=== PATIENT | male | born 1975 | race Two or more races ===

== ENCOUNTER 2020-11-30 02:27 | Emergency (ER) | payer MEDICAID, SELFPAY ==
--- NOTE | 2020-11-30 02:52 | XR_ITS ---
EXAMINATION: XR CHEST CLINICAL INFORMATION: Cough COMPARISON: 09/30/2017 TECHNIQUE: Frontal view of the chest was obtained. FINDINGS: Lung volumes are symmetric. No focal consolidation is seen. An approximately 1.4 cm nodular density overlying the right upper lung may represent the right upper lobe lesion identified on CT of 01/23/2016. No evidence of pneumothorax, pleural effusion, or pulmonary edema. The cardiomediastinal contour is unremarkable. No acute osseous findings are seen. XR/XR chest 1V IMPRESSION: Approximately 1.4 cm nodular density in the right upper lung, which may corresponding to the right upper lobe lung lesion identified on prior CT 01/23/2016. Correlation with short-term follow-up chest CT is recommended.
--- NOTE | 2020-11-30 02:52 | ECG_ITS ---
Test Reason : PALPATATIONS Blood Pressure : / mmHG Vent. Rate : 077 BPM Atrial Rate : 077 BPM P-R Int : 134 ms QRS Dur : 090 ms QT Int : 354 ms P-R-T Axes : 018 015 043 degrees QTc Int : 400 ms Normal sinus rhythm Normal ECG When compared with ECG of 30-NOV-2020 02:38, Sinus rhythm has replaced Atrial fibrillation Vent. rate has decreased BY 55 BPM Referred By: Larisa Knott Electronically Signed By:Carl Villanueva
[2020-11-30 02:58] VITALS: BP 107/73; PULSE 144; RESP 22; O2SAT 97; BMI 35.4
[2020-11-30 03:07] VITALS: BP 107/73; PULSE 141
[2020-11-30] MEDS: Metoprolol Tartrate 5 MG/5 ML VIAL IVPUSH (03:07)
[2020-11-30 03:20] LABS: MANUAL DIFF FLAG NO
--- NOTE | 2020-11-30 03:20 | ECG_ITS ---
Test Reason : PALP Blood Pressure : / mmHG Vent. Rate : 132 BPM Atrial Rate : 120 BPM P-R Int : 000 ms QRS Dur : 086 ms QT Int : 258 ms P-R-T Axes : 000 000 040 degrees QTc Int : 382 ms Atrial fibrillation with rapid ventricular response Abnormal ECG No previous ECGs available Referred By: Larisa Knott Electronically Signed By:Carl Villanueva
--- NOTE | 2020-11-30 03:20 | PC.NURSE ---
PT TO ROOM #5 WITH C/O PALPITATIONS WHICH STARTED THIS MORNING. PT ARRIVES ALERT, RESPIRATIONS EASY, N/L. SKIN W/D. PT DENIES CP AT THIS TIME. PT WAS HAVING PERIODS OF SOB AT TIMES TODAY. PT CHG INTO GOWN AND MD AT BEDSIDE WITH PT. IV PLACED TO RAC, LABS DRAWN TO LAB. NS UP AND RUNNING W/O, SITE INTACT. X-RAY IN ROOM FOR CXR. PT MEDICATED WITH METOPROLOL PER EMAR FOR RACING HEART. PT'S HR IS 74-78. PT REMAINS ON THE MONITOR. PT DENIES SOB AT THIS TIME. WILL CONTINUE TO MONITOR PT.
[2020-11-30 03:22] LABS: Basophils Absolute Auto 0.1 X10*3/uL (0.0-0.2); Basophils Percent Auto 0.5 % (0-2); Eosinophils Absolute Auto 0.5 X10*3/uL (0.0-0.4); Eosinophils Percent Auto 4.9 % (0-4); Hematocrit 42.9 % (42-52); Hemoglobin 15.1 g/dl (14.0-18.0); Imm Gran Abs Auto 0.03 X10*3/uL (0.00-0.03); Imm Gran Pct Auto 0.3 % (0.0-0.4); Lymphocytes Absolute Auto 3.1 X10*3/uL (1.2-4.9); Lymphocytes Percent Auto 31.6 % (20-40); Mean Corpuscular HGB Conc 35.2 g/dl (31.0-36.0); Mean Corpuscular Hemoglobin 31.1 pg (27.0-33.0); Mean Corpuscular Volume 88.3 fL (80-98); Mean Platelet Volume 8.8 fL (9.4-12.4); Monocytes Absolute Auto 1.2 X10*3/uL (0.1-1.2); Monocytes Percent Auto 11.9 % (2-11); Neutrophils Absolute Auto 4.9 X10*3/uL (2.0-8.3); Neutrophils Percent Auto 50.8 % (45-73); Platelet Count 320 X10*3/uL (160-400); Red Blood Count 4.86 X10*6/uL (4.60-5.80); Red Cell Distribution Width 12.3 % (11.0-16.0); White Blood Count 9.7 X10*3/uL (4.8-10.8)
--- NOTE | 2020-11-30 03:30 | ED.ARRPALP ---
HPI - Arrhythmia/Palpitations General Chief Complaint: General Medical Stated Complaint: FAST HEARTBEAT Time Seen by Provider: 11/30/20 02:52 Source: patient Mode of arrival: ambulatory History of Present Illness HPI narrative: This is a 45-year-old male without significant past medical history who presents with complaints of ?rapid heart rate? that was associated with feeling short of breath but denies any chest pain. He states that this had actually started in the morning and then has subsided but when he went to lie down he states it worsened and would not resolve. On further questioning he states that actually this is been happening off and on over the past month but has been ?going away?. Otherwise, patient denies alcohol or drug use, herbal or male enhancement hormones. He states that he is never had this problem before and is otherwise in good condition. He denies any recent travel, calf swelling or pain. Related Data Previous Rx's Medication Instructions Recorded olopatadine 0.2 % eye drops 1 drp OPHTHALMIC (EYE) DAILY #2.5 08/30/20 ml metoprolol succinate 25 mg PO DAILY 10 Days #10 tab 11/30/20 Allergies Allergy/AdvReac Type Severity Reaction Status Date / Time Penicillins [PENICILLINS] Allergy Unknown RASH Unverified 08/30/20 14:23 seafood Allergy Unknown Anaphylaxis Verified 08/30/20 14:23 Review of Systems Review of Systems: Pertinent positives and negatives as stated in HPI 10 point review of systems otherwise negative. [facility] Past Medical History Source: nursing notes reviewed Medical History Chronic radicular low back pain History of rib fracture Hyperglyceridemia Surgical History History of discectomy Family History Family History Father No problems noted. Mother No problems noted. Social History Social History Alcohol intake: never Smoking Status: Never smoker Advance Directives: No Advance Directives Information Provided: No Physical Exam Vital Signs: Vital Signs: Last Vital Signs Pulse 72 11/30/20 04:00 Resp 16 11/30/20 04:00 BP 107/73 11/30/20 03:07 Pulse Ox 98 01/30/21 04:00 Body Mass Index 35.4 VITAL SIGNS: Reviewed. GENERAL: Well developed, well nourished, in no acute distress. HEAD: Normocephalic/atraumatic, EYES: PERRLA, EOMI EARS: Ext canals without abnormality NOSE: Nares patent bilateral OROPHARYNX: no oral lesions noted, posterior pharynx clear NECK: Supple, no adenopathy LUNGS: Normal breath sounds. No adventitious sounds or accessory muscle use. SpO2<97> CARDIOVASCULAR: Irregular rate and rhythm without noted murmurs, no JVD or lower extremity edema. ABDOMEN: Soft, non-tender, non-distended with bowel sounds. NEUROLOGIC: Alert and oriented x 4. Course Course Course Narrative: This is a 45-year-old male with new onset of atrial fibrillation and RVR that was quickly controlled by administration of 5 mg of Lopressor with conversion back into sinus rhythm at a rate of 77. Review of all investigations is negative for any acute findings that would further explain the development of atrial fibrillation. I discussed the case with Dr. Villanueva who recommends 25 mg of metoprolol XL and follow-up in the office by calling on Wednesday. All results and findings as well as a plan were discussed with the patient at bedside. [id number] Score: 0 MDM - Arrhythmia/Palpitations Lab Data Result diagrams: 11/30/20 03:12 11/30/20 03:12 Labs: Lab Results 11/30/20 11/30/20 11/30/20 Range/Units 03:12 03:12 03:12 WBC 9.7 (4.8-10.8) X10*3/uL RBC 4.86 (4.60-5.80) X10*6/uL Hgb 15.1 (14.0-18.0) g/dl Hct 42.9 (42-52) % MCV 88.3 (80-98) fL MCH 31.1 (27.0-33.0) pg MCHC 35.2 (31.0-36.0) g/dl RDW 12.3 (11.0-16.0) % Plt Count 320 (160-400) X10*3/uL MPV 8.8 L (9.4-12.4) fL Immature Gran % (Auto) 0.3 (0.0-0.4) % Neut % (Auto) 50.8 (45-73) % Lymph % (Auto) 31.6 (20-40) % [place] % (Auto) 11.9 H (2-11) % Eos % (Auto) 4.9 H (0-4) % Baso % (Auto) 0.5 (0-2) % Lymph # (Auto) 3.1 (1.2-4.9) X10*3/uL [place] # (Auto) 1.2 (0.1-1.2) X10*3/uL Eos # (Auto) 0.5 H (0.0-0.4) X10*3/uL Baso # (Auto) 0.1 (0.0-0.2) X10*3/uL Abs Immat Gran (auto) 0.03 (0.00-0.03) X10*3/uL Absolute Neuts (auto) 4.9 (2.0-8.3) X10*3/uL Absolute Nucleated RBC 0.000 (0.0-0.012) X10*3/uL Nucleated RBC % (auto) 0.0 (0.0-0.2) /100WBC Sodium 137 (135-145) mmol/L Potassium 4.1 (3.3-5.1) mmol/L Chloride 103 (96-108) mmol/L Carbon Dioxide 23 (22-29) mmol/L Anion Gap 15 (12-20) BUN 16 (9-16) mg/dL Creatinine 0.81 (0.5-1.4) mg/dL Estim Creat Clear Calc 143.0 Estimated GFR > 60 Random Glucose 101 (60-115) mg/dL Calcium 9.0 (8.4-10.2) mg/dL Total Bilirubin 0.6 (0.0-1.0) mg/dL AST 24 (5-37) U/L ALT 39 (0-40) U/L Alkaline Phosphatase 81 (39-117) U/L Troponin I High Sens 5.9 (<3.5-35.0) ng/L Total Protein 7.2 (6.5-8.0) g/dL Albumin 4.3 (3.5-5.0) g/dL Lipase 23 (8-78) U/L Urine Color Urine Appearance Urine pH (5.0-8.0) Ur Specific [place] (1.005-1.025) Urine Protein (NEG-TRACE) MG/DL Urine Glucose (UA) (NEG) MG/DL Urine Ketones (NEG) MG/DL Urine Blood (NEG) Urine Nitrite (NEG) Ur Leukocyte Esterase (NEG) Urine Opiates Screen (Not Detect) Ur Barbiturates Screen (Not Detect) Ur Phencyclidine Scrn (Not Detect) Ur Amphetamines Screen (Not Detect) U Benzodiazepines Scrn (Not Detect) Urine Cocaine Screen (Not Detect) U Marijuana (THC) Screen (Not Detect) Ethyl Alcohol mg/dL 11/30/20 11/30/20 11/30/20 Range/Units 03:16 03:43 03:43 WBC (4.8-10.8) X10*3/uL RBC (4.60-5.80) X10*6/uL Hgb (14.0-18.0) g/dl Hct (42-52) % MCV (80-98) fL MCH (27.0-33.0) pg MCHC (31.0-36.0) g/dl RDW (11.0-16.0) % Plt Count (160-400) X10*3/uL MPV (9.4-12.4) fL Immature Gran % (Auto) (0.0-0.4) % Neut % (Auto) (45-73) % Lymph % (Auto) (20-40) % [place] % (Auto) (2-11) % Eos % (Auto) (0-4) % Baso % (Auto) (0-2) % Lymph # (Auto) (1.2-4.9) X10*3/uL [place] # (Auto) (0.1-1.2) X10*3/uL Eos # (Auto) (0.0-0.4) X10*3/uL Baso # (Auto) (0.0-0.2) X10*3/uL Abs Immat Gran (auto) (0.00-0.03) X10*3/uL Absolute Neuts (auto) (2.0-8.3) X10*3/uL Absolute Nucleated RBC (0.0-0.012) X10*3/uL Nucleated RBC % (auto) (0.0-0.2) /100WBC Sodium (135-145) mmol/L Potassium (3.3-5.1) mmol/L Chloride (96-108) mmol/L Carbon Dioxide (22-29) mmol/L Anion Gap (12-20) BUN (9-16) mg/dL Creatinine (0.5-1.4) mg/dL Estim Creat Clear Calc Estimated GFR Random Glucose (60-115) mg/dL Calcium (8.4-10.2) mg/dL Total Bilirubin (0.0-1.0) mg/dL AST (5-37) U/L ALT (0-40) U/L Alkaline Phosphatase (39-117) U/L Troponin I High Sens (<3.5-35.0) ng/L Total Protein (6.5-8.0) g/dL Albumin (3.5-5.0) g/dL Lipase (8-78) U/L Urine Color YELLOW Urine Appearance CLEAR Urine pH 5.5 (5.0-8.0) Ur Specific [place] >= 1.030 H (1.005-1.025) Urine Protein NEG (NEG-TRACE) MG/DL Urine Glucose (UA) NEG (NEG) MG/DL Urine Ketones NEG (NEG) MG/DL Urine Blood NEG (NEG) Urine Nitrite NEG (NEG) Ur Leukocyte Esterase NEG (NEG) Urine Opiates Screen Not Detected (Not Detect) Ur Barbiturates Screen Not Detected (Not Detect) Ur Phencyclidine Scrn Not Detected (Not Detect) Ur Amphetamines Screen Not Detected (Not Detect) U Benzodiazepines Scrn Not Detected (Not Detect) Urine Cocaine Screen Not Detected (Not Detect) U Marijuana (THC) Screen Not Detected (Not Detect) Ethyl Alcohol < 10 mg/dL ECG Data Attestation: I personally reviewed and interpreted this ECG as follows: Prior ECG tracings: available for review Interpretation: Atrial fibrillation, HR-132, no evidence STEMI, QRS 86, QTC -382. REPEAT @ 0334: Normal sinus rhythm, HR-77, no evidence of acute ischemia, IA/QRS/QTC within normal limits Discharge Plan Discharge Clinical Impression: Paroxysmal atrial fibrillation with RVR Patient Disposition: Home, Self-Care Instructions: A-fib (Atrial Fibrillation) (ED) Additional Instructions: [place] comenzado a [facility] [employer] para controlar martino frecuencia card?leander. Recoja la receta en martino farmacia. Violetta un seguimiento con Cardiolog?a llamando a la oficina el lunes por la ma?miriam, martino referencia se encuentra a continuaci?n. Regrese al departamento de emergencias si tiene alg?n s?ntoma de empeoramiento erika. Prescriptions: New metoprolol succinate 25 mg tablet extended release 24 hr 25 mg PO DAILY 10 Days Qty: 10 RF: 0 No Action olopatadine 0.2 % drops 1 drp ophthalmic (eye) DAILY Qty: 2.5 RF: 0 Referrals: Po,Nurys Dee MD [Primary Care Provider] - 2 days (New onset paroxysmal atrial fibrillation. Referral provided for Cardiology and started on Lopressor ER 25 mg daily) Carl Villanueva MD [Physician] - 2 days (Re-evaluation after being seen in the emergency department for new onset atrial fibrillation with RVR with good resolution of rate and rhythm after 5 mg of Lopressor. Started on 25 mg Lopressor ER.) Print Language: Korean
--- NOTE | 2020-11-30 03:43 | PC.NURSE ---
pt converted to NSR. Repeat EKG obtained to MD for review.
[2020-11-30 03:50] LABS: Ethanol < 10 mg/dL
[2020-11-30 03:53] LABS: Glucose Urine UA NEG (NEG); Leukocyte Esterase Urine NEG (NEG); Nitrite Urine NEG (NEG); PH 5.5 (5.0-8.0); Specific Gravity - Urine >= 1.030 (1.005-1.025); Urine Blood NEG (NEG); Urine Ketones NEG (NEG); Urine Protein NEG (NEG-TRACE)
[2020-11-30 03:56] LABS: Alanine Aminotransferase 39 U/L (0-40); Albumin Level 4.3 g/dL (3.5-5.0); Alkaline Phosphatase 81 U/L (39-117); Anion Gap 15 (12-20); Aspartate Amino Transferase 24 U/L (5-37); Bilirubin Total 0.6 mg/dL (0.0-1.0); Blood Urea Nitrogen 16 mg/dL (9-16); Carbon Dioxide 23 mmol/L (22-29); Chloride 103 mmol/L (96-108); Estimated Glomerular Filt Rate > 60; Glucose Random 101 mg/dL (60-115); Lipase 23 U/L (8-78); Potassium 4.1 mmol/L (3.3-5.1); Sodium 137 mmol/L (135-145); Total Protein 7.2 g/dL (6.5-8.0)
[2020-11-30 04:00] VITALS: PULSE 72; RESP 16; O2SAT 98
[2020-11-30 04:06] LABS: Appearance Urine CLEAR; Color Urine YELLOW
--- NOTE | 2020-11-30 04:08 | PC.NURSE ---
PT REMAINS IN NSR. PT DENIES ANY COMPLAINTS AT THIS TIME. WILL CONTINUE TO MONITOR PT.
[2020-11-30 04:16] LABS: Amphetamine Screen Urine Not Detected (Not Detect); Barbiturates, Urine Not Detected (Not Detect); Benzodiazepines Screen Urine Not Detected (Not Detect); Cannabinoid Screen Urine Not Detected (Not Detect); Cocaine Screen Urine Not Detected (Not Detect); Opiate Screen Urine Not Detected (Not Detect); Phencyclidine Screen Urine Not Detected (Not Detect)
[2020-11-30 05:09] LABS: Troponin-I High Sensitivity 5.9 ng/L (<3.5-35.0)
[2020-11-30 05:38] VITALS: BP 101/56; PULSE 69; RESP 17; TEMP 36.6; O2SAT 95
== END 2020-11-30 06:01 | disposition home or self-care (01) ==
PROVIDERS: Emergency Provider Student in an Organized Health Care Education/Training Program; PCP Internal Medicine
DX: I48.0 Paroxysmal atrial fibrillation (principal)
CPT/HCPCS: 36415; 71045; 80053; 80307; 80320; 81003; 83690; 84484; 85025; 93005; 96374; 99284

== ENCOUNTER 2020-12-09 20:00 | Emergency (ER) | payer MEDICAID, SELFPAY ==
--- NOTE | ~2020-12-09 | CT_ITS ---
EXAMINATION: CT LUMBAR SPINE WITHOUT CONTRAST CLINICAL INFORMATION: Worsening low back pain. History of herniated disc. COMPARISON: MR lumbar spine 11/22/2010. Plain film lumbar spine 08/13/2014 TECHNIQUE: Axial images obtained through lumbar spine. Coronal and sagittal reformatted images are performed at the CT scanner This CT examination was performed using dose optimization techniques as appropriate, variously including the following: *Automated exposure control *Adjustment of mA and/or kV according to patient size (this includes techniques or standardized protocols for targeted exams where dose is matched to indication/reason for exam; i.e. extremities or head) *Use of iterative reconstruction technique DLP; 591 mGy-cm FINDINGS: The lumbar vertebrae have normal height and alignment. No fracture or bone destruction. No paraspinal mass or hematoma. The abdominal aorta is of normal caliber. No vascular calcifications of aorta. Spinal levels: T12-L1: Lumbar disc height is normal. No focal disc protrusion. Neural foramina are open. Facet joints are normal. L1-L2: Lumbar disc height is normal. No focal disc protrusion. Neural foramina are open. Facet joints are normal. L2-L3: Lumbar disc height is normal. No focal disc effusion. The neural foramina are open. Facet joints are normal. L3-L4: There is marked disc height narrowing. Vacuum disc phenomenon at this disc level. There are spurs at the anterior endplates of lumbar vertebrae which are nonbridging. No focal disc protrusion. No central canal stenosis. Neural foramina are open. Facet joints are normal. The Degenerative disc height narrowing has progressed since prior exams. L4-L5: There is marked disc height narrowing. Vacuum disc phenomenon at this disc level. There are minor degenerative spurs at the anterior endplates of lumbar vertebrae at this disc level. There is a broad-based posterior bulge of the disc without focal protrusion. There is marked central canal stenosis. Neural foramina are slightly narrowed without significant nerve impingement. Degenerative narrowing of disc height has progressed since prior exams. This disc level did show a large disc protrusion on MR study of 11/22/2010 which is not apparent on this exam. L5-S1: Lumbar disc height normal. No focal disc protrusion. No central canal stenosis. Neural foramina are open. CT/CT lumbar spine wo con IMPRESSION: Marked degenerative change of the disc at L3-L4 and L4-L5. No focal disc protrusion. There is marked central canal stenosis at L4-L5 and mild narrowing of the neural foramina bilaterally.
[2020-12-09 20:36] VITALS: BP 140/71; PULSE 75; RESP 18; TEMP 37.1; O2SAT 97; BMI 31.8
[2020-12-09 22:21] LABS: Glucose Urine UA NEG (NEG); Leukocyte Esterase Urine NEG (NEG); Nitrite Urine NEG (NEG); Specific Gravity - Urine >= 1.030 (1.005-1.025); Urine Blood NEG (NEG); Urine Ketones NEG (NEG); Urine Protein NEG (NEG-TRACE)
[2020-12-09 22:22] LABS: Appearance Urine CLEAR; Color Urine YELLOW
--- NOTE | 2020-12-10 00:25 | PC.NURSE ---
pt reports inablility to walk, requesting commode, provided a urinal for toileting needs. AWAITING PRIMARY EVAL AT THIS TIME.
--- NOTE | 2020-12-10 00:53 | ED_ITS ---
HPI - Back Pain/Injury General Chief Complaint: Back Pain/Injury Stated Complaint: WORK INJ - CANNOT FEEL LEGS Time Seen by Provider: 12/09/20 20:41 Mode of arrival: ambulatory Limitations: no limitations History of Present Illness HPI Narrative: Patient has a chronic back pain had diskectomy in 2007 head MRI in 2010 which showed lumbar canal stenosis with significant narrowing at L4-L5 area was doing okay not requiring any significant pain medication at work was lifting heavy stuff prior to arrival which made pain worse radiated to both legs specially on the right side similar to that in the past no bladder or bowel incontinence patient unable to ambulate because of pain MD elicited complaint: back pain and back injury Pertinent past history: prior back pain Onset (ago): hour(s) Timing: constant Severity: severe Similar Symptoms Previously: Yes Quality: sharp Location: lumbar spine Radiation: left upper leg and right upper leg Exacerbating factors: movement Relieving factors: none Context: while lifting Associated symptoms: denies other symptoms Work related injury: Yes Related Data Previous Rx's Medication Instructions Recorded olopatadine 0.2 % eye drops 1 drp OPHTHALMIC (EYE) DAILY #2.5 08/30/ ml metoprolol succinate 25 mg PO DAILY 10 Days #10 tab 11/30/20 Allergies Allergy/AdvReac Type Severity Reaction Status Date / Time Penicillins [PENICILLINS] Allergy Unknown RASH Verified 12/09/20 20:35 seafood Allergy Unknown Anaphylaxis Verified 12/09/20 20:35 Review of Systems Review of Systems: Constitutional : No Weight loss, No Fever, No Chills ENT/Mouth : No sore throat, No Rhinorrhea Eyes: No Eye Pain, No Swelling Cardiovascular : No Chest Pain, no palpitations Respiratory : No Cough, No Sputum, no shortness of breath Gastrointestinal : no Nausea, No Vomiting, No Diarrhea, No abdominal Pain, no black stools Genitourinary : No Dysuria, No Urinary Frequency Musculoskeletal : No joint pain, No Myalgias, No Joint Swelling Skin : No Skin Lesions, No rash Neuro : No Weakness, No Numbness, No Dizziness, No Headache Psych : No Anxiety/Panic, No Depression Heme/Lymph: No Bruising, No Lymphadenopathy Endocrine : No Polyuria, No Polydipsia All other systems reviewed and are negative [facility] Past Medical History Medical History Chronic radicular low back pain History of rib fracture Hyperglyceridemia Surgical History History of discectomy Family History Family History Father No problems noted. Mother No problems noted. Social History Social History Alcohol intake: never Smoking Status: Never smoker Advance Directives: No Advance Directives Information Provided: No Physical Exam Vital Signs: Vital Signs: Last Vital Signs Temp 98.7 F 12/09/20 20:36 Pulse 75 12/09/20 20:36 Resp 18 12/09/20 20:36 BP 140/71 H 12/09/20 20:36 Pulse Ox 97 12/09/20 20:36 Body Mass Index 31.8 Const: General: cooperative, well developed and in distress Nutritional Appearance: average body habitus Orientation/consciousness: patient oriented x3 HENMT: Head: Yes normocephalic Ears: hearing grossly normal bilaterally Mouth: Normal oral and palatal mucosa present Eyes: General: appearance normal, both eyes and all related structures Neck: Neck: Yes normal visual inspection and Yes full ROM Chest: Chest palpation & inspection: normal inspection of the chest Resp: Effort & Inspection: normal respiratory effort Auscultation: clear to auscultation bilaterally Cardio: Palpation: normal PMI Rate: regular rate Rhythm: regular rhythm Heart sounds: S1 normal heart sound present and S2 normal heart sound present GI: Inspection: Yes normal to inspection Palpation (GI): Soft to palpation and nontender Auscultation: normal bowel sounds Rectal Exam - Male: Yes Visual inspection abnormal and Yes normal sphincter tone : General: Yes no CVA tenderness Back/Spine/Pelvis: Back: no CVA tenderness Thoracic/Lumbar Spine: thoracic and lumbar spine normal to inspection, pain with thoraco-lumbar ROM, paraspinal muscle tenderness, thoraco-lumbar spasm, lumbar spinal tenderness and straight leg raise positive right at 60 degrees Skin: General skin exam: no rashes or lesions noted Neuro: Other: Intact sacral sensation General: patient oriented x3, moves all extremities, no focal motor deficits and normal sensation to monofilament Motor exam (neuro): 5/5 motor strength present throughout MDM - Back Pain/Injury MDM Narrative Medical decision making narrative: Patient with L4-L5 radiculopathy which is chronic 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 Differential Diagnosis Differential diagnosis: Likely lumbar radiculopathy and strain of lumbar region Medical Records Attestation: I reviewed the patient's medical records. Lab Data Labs: Lab Results 12/09/20 Range/Units 22:01 Urine Color YELLOW Urine Appearance CLEAR Urine pH 6.0 (5.0-8.0) Ur Specific [place] >= 1.030 H (1.005-1.025) Urine Protein NEG (NEG-TRACE) MG/DL Urine Glucose (UA) NEG (NEG) MG/DL Urine Ketones NEG (NEG) MG/DL Urine Blood NEG (NEG) Urine Nitrite NEG (NEG) Ur Leukocyte Esterase NEG (NEG) Imaging Data CT scan lumbar spine: Attestation: I personally reviewed and interpreted this imaging study as follows: Radiologist's impression: XAMINATION: CT LUMBAR SPINE WITHOUT CONTRAST CLINICAL INFORMATION: Worsening low back pain. History of herniated disc. COMPARISON: MR lumbar spine 11/22/2010. Plain film lumbar spine 08/13/2014 TECHNIQUE: Axial images obtained through lumbar spine. Coronal and sagittal reformatted images are performed at the CT scanner This CT examination was performed using dose optimization techniques as appropriate, variously including the following: *Automated exposure control *Adjustment of mA and/or kV according to patient size (this includes techniques or standardized protocols for targeted exams where dose is matched to indication/reason for exam; i.e. extremities or head) *Use of iterative reconstruction technique DLP; 591 mGy-cm FINDINGS: The lumbar vertebrae have normal height and alignment. No fracture or bone destruction. No paraspinal mass or hematoma. The abdominal aorta is of normal caliber. No vascular calcifications of aorta. Spinal levels: T12-L1: Lumbar disc height is normal. No focal disc protrusion. Neural foramina are open. Facet joints are normal. L1-L2: Lumbar disc height is normal. No focal disc protrusion. Neural foramina are open. Facet joints are normal. L2-L3: Lumbar disc height is normal. No focal disc effusion. The neural foramina are open. Facet joints are normal. L3-L4: There is marked disc height narrowing. Vacuum disc phenomenon at this disc level. There are spurs at the anterior endplates of lumbar vertebrae which are nonbridging. No focal disc protrusion. No central canal stenosis. Neural foramina are open. Facet joints are normal. The Degenerative disc height narrowing has progressed since prior exams. L4-L5: There is marked disc height narrowing. Vacuum disc phenomenon at this disc level. There are minor degenerative spurs at the anterior endplates of lumbar vertebrae at this disc level. There is a broad-based posterior bulge of the disc without focal protrusion. There is marked central canal stenosis. Neural foramina are slightly narrowed without significant nerve impingement. Degenerative narrowing of disc height has progressed since prior exams. This disc level did show a large disc protrusion on MR study of 11/22/2010 which is not apparent on this exam. L5-S1: Lumbar disc height normal. No focal disc protrusion. No central canal stenosis. Neural foramina are open. CT/CT lumbar spine wo con IMPRESSION: Marked degenerative change of the disc at L3-L4 and L4-L5. No focal disc protrusion. There is marked central canal stenosis at L4-L5 and mild narrowing of the neural foramina bilaterally. Discharge Plan Discharge Prescriptions: No Action metoprolol succinate 25 mg tablet extended release 24 hr 25 mg PO DAILY 10 Days Qty: 10 RF: 0 olopatadine 0.2 % drops 1 drp ophthalmic (eye) DAILY Qty: 2.5 RF: 0
--- NOTE | 2020-12-10 01:03 | PC.NURSE ---
md in to bedside to eval pt, neuros intact.
[2020-12-10] MEDS: HYDROmorphone HCl 2 MG/ML VIAL IVPUSH (02:04)
[2020-12-10] MEDS: ondansetron HCL 4 MG/2 ML VIAL IVPUSH (02:04)
[2020-12-10] MEDS: Ketorolac Tromethamine 30 MG/ML VIAL IVPUSH (02:04)
== END 2020-12-10 02:25 | disposition home or self-care (01) ==
PROVIDERS: Emergency Provider Internal Medicine; PCP Internal Medicine
DX: M54.5 Low back pain (principal); M79.605 Pain in left leg; M79.604 Pain in right leg; Z79.899 Other long term (current) drug therapy
CPT/HCPCS: 72131; 81003; 96374; 96375; 99283; 99284; J1100; J1170; J1885; J2405

== ENCOUNTER 2020-12-16 19:50 | Emergency (ER) | payer MEDICAID, SELFPAY ==
--- NOTE | ~2020-12-16 | XR_ITS ---
EXAMINATION: XR LUMBOSACRAL SPINE CLINICAL INFORMATION: Lower back pain worsening since 12/09/2020 COMPARISON: CT lumbar spine 12/09/2020 TECHNIQUE: Three views of the lumbosacral spine. FINDINGS: Again seen is straightening of the lumbar spine along with moderate degenerative changes at L3-L4 and L4-L5. Compared to the prior CT scan, no significant interval change is seen. No new destructive lesion or compression fracture is identified. XR/XR lumbar spine 2-3V IMPRESSION: Unchanged degenerative changes L3-L4 and L4-L5
[2020-12-16 20:30] VITALS: BP 128/92; PULSE 110; RESP 18; TEMP 36.8; O2SAT 97; BMI 31.8
--- NOTE | 2020-12-16 21:55 | ED.BACK ---
HPI - Back Pain/Injury General Chief Complaint: Back Pain/Injury Stated Complaint: Back injury at work Source: patient Mode of arrival: ambulatory Limitations: no limitations History of Present Illness HPI Narrative: 45-year-old male with past medical history of paroxysmal AFib, presents for lower back pain and right-sided sciatica. This back pain evaluated on 12/09/2020 after a work related injury. Patient states that he did not follow up with his primary care physician and that he has run out of medications and is asking for more. He does not describe any indication of cauda equina, fevers, chills, chest pain or pressure, palpitations, shortness of breath, abdominal pain, abdominal distention, dysuria, hematuria, and edema. MD elicited complaint: back pain and back injury Pertinent past history: prior back pain Onset (ago): week(s) (2) Timing: constant Severity: severe Pain scale (0-10): 10 Similar Symptoms Previously: Yes Quality: aching Location: lumbar spine Radiation: right upper leg Exacerbating factors: movement and walking Relieving factors: none Associated symptoms: denies other symptoms Work related injury: Yes Related Data Previous Rx's Medication Instructions Recorded olopatadine 0.2 % eye drops 1 drp OPHTHALMIC (EYE) DAILY #2.5 08/30/ ml metoprolol succinate 25 mg PO DAILY 10 Days #10 tab 11/30/20 cyclobenzaprine 10 mg PO TID PRN #20 tab 12/10/20 dexamethasone [Decadron] 4 mg PO BID #10 tab 12/10/20 naproxen 500 mg PO BID #30 tab 12/10/20 oxycodone 5 mg PO Q6H PRN #20 tab 12/10/20 cyclobenzaprine 10 mg PO TID PRN #30 tab 12/16/20 tramadol 50 mg PO Q6H PRN #14 tab 12/16/20 Allergies Allergy/AdvReac Type Severity Reaction Status Date / Time Penicillins [PENICILLINS] Allergy Unknown RASH Verified 12/16/20 22:38 seafood Allergy Unknown Anaphylaxis Verified 12/16/20 22:38 Review of Systems Review of Systems: Constitutional: No Fever, No Chills ENT/Mouth: No Ear Pain, No Hoarseness, No sore throat Eyes: No Eye Pain, No Swelling, No Redness, No Foreign Body Cardiovascular: No Chest Pain, No SOB Respiratory: No Cough, No Dyspnea Gastrointestinal: No Nausea, No Vomiting, No Diarrhea, No abdominal Pain Genitourinary: No Dysuria, No Hematuria Musculoskeletal: positive lower back pain, No Myalgias, No Joint Swelling Skin: No Skin lacerations, No rash Neuro: No Weakness, No Numbness, No Paresthesias, No Loss of Consciousness, No Dizziness, No Headache Psych: No Anxiety/Panic, No Depression Heme/Lymph: no easy bruising, no Lymphadenopathy Endocrine: No Polyuria, No Polydipsia Yes all other systems are reviewed and are negative [facility] Past Medical History Attestation statement: The following information was validated with the patient. Source: old records reviewed Medical History Chronic radicular low back pain History of rib fracture Hyperglyceridemia Surgical History History of discectomy Family History Family History Father No problems noted. Mother No problems noted. Social History Social History Alcohol intake: unknown Smoking Status: Unknown if ever smoked Use of substances other than those prescribed or required for medical reasons: Unknown Advance Directives: No Physical Exam Vital Signs: Vital Signs: Last Vital Signs Temp 98.2 F 12/16/20 20:30 Pulse 94 12/16/20 23:41 Resp 16 12/16/20 23:41 BP 154/92 H 12/16/20 23:41 Pulse Ox 97 12/16/20 23:41 Body Mass Index 31.8 Appearance: Alert. Oriented X3. No acute distress. Eyes: Pupils equal, round and reactive to light. ENT: Pharynx normal. Neck: Normal inspection. Neck supple. CVS: Normal heart rate and rhythm. Pulses normal. Respiratory: No respiratory distress. Breath sounds normal. Abdomen: Soft and nontender. Skin: Skin warm and dry. Normal skin color. Normal skin turgor. Extremities: No lower extremity edema. Neuro: No motor deficit. No sensory deficit. Course Course Course Narrative: 45-year-old male presents with lower back pain after work-related injury. Was evaluated on 12/09/2020 by this emergency department, CT scan of the lumbar spine shows significant disc degeneration. We will order lumbar x-ray. Patient was supposed to follow-up with his primary care physician and or pain management, however he did not make the appointment. Patient is asking for oxycodone, states that this is the only medication that works for him. Detailed description on why I would not order this medication, patient dissatisfied but understands. We did order tramadol and cyclobenzaprine. This case was discussed with attending who evaluated him on 12/0912/19/2020 and he agrees with this plan of care. Patient is ambulatory, does have range of motion, no indication of cauda equina. Patient verbalized understanding of and agrees to plan of care to discharge to home. MDM - Back Pain/Injury Differential Diagnosis Differential diagnosis: Likely lumbar radiculopathy, sciatica and strain of lumbar region Medical Records Attestation: I reviewed the patient's medical records. Lab Data Attestation: I reviewed the patient's lab results. Imaging Data Lumbar x-ray: Attestation: I personally reviewed and interpreted this imaging study as follows: Radiologist's impression: EXAMINATION: XR LUMBOSACRAL SPINE CLINICAL INFORMATION: Lower back pain worsening since 12/09/2020 COMPARISON: CT lumbar spine 12/09/2020 TECHNIQUE: Three views of the lumbosacral spine. FINDINGS: Again seen is straightening of the lumbar spine along with moderate degenerative changes at L3-L4 and L4-L5. Compared to the prior CT scan, no significant interval change is seen. No new destructive lesion or compression fracture is identified. XR/XR lumbar spine 2-3V IMPRESSION: Unchanged degenerative changes L3-L4 and L4-L5 Discharge Plan Discharge Clinical Impression: Strain of lumbar region, Lumbar radiculopathy, Sciatica Patient Disposition: Home, Self-Care Instructions: Low Back Strain (ED), Lumbar Radiculopathy (ED) Additional Instructions: You presented to the emergency department for lower back pain for a work related injury that you were evaluated on initially on 12/10/2020. Please follow-up with primary care physician and or work connection. We gave a prescription for cyclobenzaprine which is a muscle relaxer. You requested oxycodone, however I do not feel that this is an appropriate medication for you at this time. Your prescribed tramadol, which is an opioid medication. Do not drive or operate machinery while taking medication. This medication has high risk for addiction and abuse and will cause constipation, drowsiness, decreased reaction time, and may impair judgment. Thank you for choosing this emergency department for evaluation. Please follow-up with primary care physician as needed. Return to the emergency department for any new, concerning, or worsening symptoms. Prescriptions: New cyclobenzaprine 10 mg tablet 10 mg PO TID PRN (Reason: muscle spasm) Qty: 30 RF: 0 tramadol 50 mg tablet 50 mg PO Q6H PRN (Reason: pain) Qty: 14 RF: 0 No Action metoprolol succinate 25 mg tablet extended release 24 hr 25 mg PO DAILY 10 Days Qty: 10 RF: 0 oxycodone 5 mg tablet 5 mg PO Q6H PRN (Reason: pain) Qty: 20 RF: 0 cyclobenzaprine 10 mg tablet 10 mg PO TID PRN (Reason: muscle spasm) Qty: 20 RF: 0 dexamethasone [Decadron] 4 mg tablet 4 mg PO BID Qty: 10 RF: 0 naproxen 500 mg tablet 500 mg PO BID Qty: 30 RF: 0 olopatadine 0.2 % drops 1 drp ophthalmic (eye) DAILY Qty: 2.5 RF: 0 Interventions: ED Discharge Assessment Last Done: 12/16/20 23:41 Discharge Date/Time: 12/16/20 23:43
[2020-12-16] MEDS: Ketorolac Tromethamine 60 MG/2 ML VIAL IM (22:39)
[2020-12-16] MEDS: Lidocaine 4 % Patch ADH..PATCH 2 PATCH TRANSDERMA (22:40)
[2020-12-16 23:41] VITALS: BP 154/92; PULSE 94; RESP 16; O2SAT 97
== END 2020-12-16 23:43 | disposition home or self-care (01) ==
PROVIDERS: Emergency Provider Internal Medicine; PCP Internal Medicine
DX: S39.012A Strain of muscle, fascia and tendon of lower back, initial encounter (principal); X58.XXXA Exposure to other specified factors, initial encounter; M54.16 Radiculopathy, lumbar region; M54.41 Lumbago with sciatica, right side; Y93.9 Activity, unspecified; Y92.9 Unspecified place or not applicable; Y99.0 Civilian activity done for income or pay
CPT/HCPCS: 72100; 96372; 99284; J1885

== ENCOUNTER 2020-12-25 13:07 | Outpatient (REF) | payer OTHER, SELFPAY ==
[2020-12-25 14:48] LABS: D Dimer < 200 NG/ML
[2020-12-25 15:26] LABS: TSH reflex Free T4 0.83 uIU/mL (0.32-4.0)
== END 2020-12-25 13:08 | disposition home or self-care (01) ==
LOC: HO.LAB 13:07
PROVIDERS: PCP Internal Medicine; Visit Provider Internal Medicine Cardiovascular Disease
DX: I48.0 Paroxysmal atrial fibrillation (principal)
CPT/HCPCS: 36415; 84443; 85379; 93005; 99202

== ENCOUNTER 2021-01-13 18:54 | Outpatient (REF) | payer OTHER, SELFPAY ==
--- NOTE | ~2021-01-13 | MR_ITS ---
EXAMINATION: MR LUMBAR SPINE WITHOUT CONTRAST CLINICAL INFORMATION: Right lower extremity radiculopathy. COMPARISON: MRI dated 11/22/2010. CT from 12/09/2020. TECHNIQUE: MRI of the lumbar spine was obtained using routine sequences without contrast. FINDINGS: VERTEBRAL BODIES AND PARASPINAL STRUCTURES: Chronic fatty marrow degenerative endplate changes noted at various levels, most significant at the L3-L4 and L4-L5 levels where there are mild posterior subluxations and [id number] disc space narrowing, progressed since the previous MRI exam. Nonspecific mild edema in the posterior paraspinal soft tissues bilaterally in the lower thoracic and upper to mid lumbar spine may be due to strain-type injury. There is mild left lateral inferior endplate edema at the L3 level which is presumably reactive to a degenerative Schmorl's node. No compression fractures visible. No anterior subluxations are seen. There is mild epidural lipomatosis in the lumbosacral canal contributing to impression upon the thecal sac. CONUS MEDULLARIS AND CAUDA EQUINA: Normal, terminating at the level of L1. No lower cord signal abnormality is seen. There is a nondependent configuration of the cauda equina nerve roots within the upper lumbar canal due to severity of thecal sac compression at the L1-L2 level. There is a thickened fatty filum within the thecal sac, most conspicuous at the L4 level, measuring up to 3 mm in diameter. SPINAL LEVELS: T12-L1: Previous left paracentral disc protrusion has nearly resorbed and significantly decreased in size. No central canal stenosis or foraminal narrowing. L1-L2: Worsened broad-based right paracentral disc protrusion, now resulting in severe thecal sac compression and focal effacement of CSF within the thecal sac. No significant foraminal narrowing. L2-L3: Broad-based posterior disc bulge and small posterior annular fissure flattening the ventral thecal sac. Mild facet arthropathy. No central canal stenosis or foraminal narrowing. L3-L4: Significant loss of disc height with a retrosubluxation and broad-based posterior disc bulge. Superimposed right paracentral disc protrusion also evident with distortion of the ventral thecal sac and mass effect upon the right L4 nerve root. Mild central canal stenosis and moderate facet arthropathy encroaching upon the left subarticular zone. Osseous spurring and bulging disc result in mild right and moderate left foraminal encroachment with mild distortion of the exiting left L3 nerve root. L4-L5: Retrosubluxation and diffuse disc bulge present. Previous large right lateral recess disc extrusion has substantially decreased in size with a residual small disc extrusion which continues to distort the right L5 nerve root. Broad-based disc bulge in conjunction with a left paracentral disc protrusion distorts the ventral thecal sac and compresses the left L5 nerve root. Moderate central canal stenosis and facet arthropathy with [id number] foraminal narrowing. L5-S1: No disc pathology. Mild facet arthrosis. No central canal stenosis or foraminal narrowing. MR/MR lumbar spine wo con IMPRESSION: Worsened broad-based right paracentral disc protrusion at L1-L2 now resulting in significant thecal sac compression and distortion of the cauda equina nerve roots. Progressed spondylosis at L3-L4 with further loss of disc height and worsened degenerative endplate changes with a retrosubluxation. Broad-based posterior disc bulge and right paracentral disc protrusion distorting the right L4 nerve root. Mild central canal stenosis with moderate facet arthropathy. Mild distortion of the exiting left L3 nerve root in the neural foramen. Progressed degenerative disc disease at L4-L5 with a mild retrosubluxation. Previous large right lateral recess disc extrusion has significantly decreased in size, though continues to distort the right L5 nerve root. Left paracentral disc protrusion superimposed upon a posterior disc bulge compresses the left L5 nerve root. Moderate central canal stenosis. Thickened fatty filum with normal termination of the conus tip. Query for any chronic symptoms of cord tethering.
== END 2021-01-13 18:55 | disposition home or self-care (01) ==
LOC: HO.MRI 18:54
PROVIDERS: Visit Provider Internal Medicine
DX: M54.10 Radiculopathy, site unspecified (principal)
CPT/HCPCS: 72148

== ENCOUNTER → 2021-01-20 13:50 | Outpatient (REF) | payer OTHER, SELFPAY ==
--- NOTE | 2021-01-20 13:40 | ECG_ITS ---
Hook-up date: 2021-01-20 13:49:00 Duration: 24:38:00 Test Indications: PAF Medications: [id number] QRS complexes 3 Ventricular ectopics which represent <1 % of total QRS comp. * Supraventricular ectopics which represent % of total QRS comp. * Paced QRS complexs which represent % of total QRS comp. VENTRICULAR ECTOPY 3 Isolated 0 Bigeminal Cycles 0 Couplets 0 Runs 0 Beats in Runs * Beats LONGEST at * BPM at :: -- * Beats FASTEST at * BPM at :: -- SUPRAVENTRICULAR ECTOPY * Isolated * Couplets * Runs * Beats in Runs * Beats LONGEST at * BPM at :: -- * Beats FASTEST at * BPM at :: -- HEART RATES 57 MIN at 04:53:14 2021-01-21 98 AVG 176 MAX at 16:12:25 2021-01-20 LONGEST RR 1.1440 secs at 05:02:35 2021-01-21 S-T LEVELS Channel 1 - 128 mm at 13:49:00 2021-01-20 - 128 mm at 13:49:00 2021-01-20 Channel 2 - 128 mm at 13:49:00 2021-01-20 - 128 mm at 13:49:00 2021-01-20 Channel 3 - 128 mm at 03:30:81 -- - 128 mm at 03:30:81 Underlying rhythm is sinus with average rate of 98/min; About 44% of the time, ventricular rate > 100/min- sinus tachycardia; No other obvious arrhythmias; Patient did not report any symptoms in the diary Referred By: Carl Villanueva Overread By: IVAN LAURA
== END ==
LOC: HO.CARD 13:50
PROVIDERS: PCP Internal Medicine; Visit Provider Internal Medicine Cardiovascular Disease
DX: I48.0 Paroxysmal atrial fibrillation (principal)
CPT/HCPCS: 93225; 93226

== ENCOUNTER → 2021-02-20 13:08 | Outpatient (BNVA) | payer OTHER, SELFPAY | PROVIDERS: PCP Internal Medicine; Visit Provider Internal Medicine Cardiovascular Disease | DX: I48.0 Paroxysmal atrial fibrillation (principal) | CPT/HCPCS: 99212 ==

== ENCOUNTER → 2021-03-05 08:21 | Outpatient (REF) | payer OTHER, SELFPAY ==
--- NOTE | 2021-03-05 08:25 | CA_ITS ---
Transthoracic Echocardiogram Patient (Last, First, Middle): Jeanette Palencia, Gender: Male Date of : 1975 Age: 45 Procedure Date: 03/05/2021 Procedure Type: Transthoracic Echocardiogram Location: OP Height: 175.26 cm Weight: 102.97 kg BSA: 2.18 m2 Heart Rate: bpm BP: 110 / 70 mmHg Legal File Clerk: LOUIS Burton MD: Carl Villanueva MD Symptoms: I48.0 - Paroxysmal atrial fibrillation Study Quality: Fair ECG Rhythm: Sinus Conclusions: - The left ventricular systolic function is normal. The visually estimated ejection fraction is between 55-60%. - No obvious valvular pathology seen on this study. Findings Left Ventricle Normal left ventricular cavity size. There is normal left ventricular wall thickness. The left ventricular systolic function is normal. The visually estimated ejection fraction is between 55-60%. There is no evidence of regional wall motion abnormalities. Diastolic function is normal for age. Right Ventricle Normal right ventricular cavity size and systolic function. Atria The left atrium is normal in size. The right atrium is normal in size. Aortic Valve There is a normal trileaflet aortic valve. There is no aortic valve stenosis. There is no aortic valve regurgitation. Mitral Valve The mitral valve appears normal. There is no mitral valve regurgitation. There is no mitral valve stenosis. Pulmonic Valve The pulmonic valve was not well visualized. Tricuspid Valve Normal tricuspid valve structure. There is trace tricuspid valve regurgitation. The pulmonary artery systolic pressure is normal. Great Vessels The aortic annulus, sinuses of valsalva, and asc aorta are normal in size. Venous The inferior vena cava is normal in size and collapses greater than 50% with inspiration. Pericardium/Pleural There is no evidence of pericardial effusion. Prior Study Comparison No prior study available for comparison. Recommendations, Care & Conclusions No obvious valvular pathology seen on this study. Measurements 2D Linear Measurements IVSd: 1.10 0.6-0.9/0.6-1.0 cm LVIDd: 4.47 3.9-5.3/4.2-5.9 cm LVIDd Index: 2.05 2.4-3.2/2.2-3.1 cm/m2 LVIDs: 3.30 2.0-3.6 cm LVPWd: 1.12 0.7-1.1 cm Ao Root: 3.80 2.1-3.5 cm LA Diam: 2.70 2.7-3.8/3.0-4.0 cm LAIDs Index: 1.24 1.5-2.3 cm/m2 LV Mass: 218.51 67-162/88-224 g LV Mass Index: 100.23 43-95/49-115 g/m2 LVOT Diam: 2.30 3.0+(-)1.3 cm 2D Systolic Function EF 4C: 55.20 >55% EF 2C: 59.30 >55% EF BiP: 57.00 >55% Mitral Valve MV Pk E: 0.79 MV PK A: 0.59 MV Decel Time: 218.00 E/A: 1.30 E'Lateral: 9.19 E'Medial: 9.67 E/E' Med: 8.20 E/E' Lat: 8.60 PHT: 64.00 MVA PHT: 3.44 Decel Pitkin: 3.62 Aortic Valve AoV Pk Alfa: 1.13 AoV Mn Alfa: 0.77 AoV VTI: 0.23 AoV Pk Grad: 5.00 Aov Mn Grad: 3.00 BALJIT Cont.VTI: 3.72 LVOT LVOT Pk Alfa: 1.03 LVOT Mn Alfa: 0.72 LVOT VTI: 0.21 LVOT Pk Grad: 4.00 LVOT Mn Grad: 2.00 LVOT Diam: 2.30 LVOT Area: 4.15 Diastolic Function MV Pk E: 0.79 MV Pk A: 0.59 E/A: 1.30 E'Medial: 9.67 E/E' Med: 8.20 E' Laterial: 9.19 E/E' Lat: 8.60 Tricuspid Valve TR Pk Alfa: 2.16 TR Pk Grad: 19.00 RA Press: 3.00 RVSP: 22.00 Great Vessels Aorta Ao Root-2D: 3.80 2.0-3.7 cm Ao Asc: 3.30 2.1-3.4 cm Ao Arch: 2.90 Updated in Other Vendor System with Status of Final Jose Luis Lopes MD electronically signed on 03/07/2021 2:50:45 PM with status of Final
== END ==
LOC: HO.CARD 08:21
PROVIDERS: PCP Internal Medicine; Visit Provider Internal Medicine Cardiovascular Disease
DX: I48.0 Paroxysmal atrial fibrillation (principal)
CPT/HCPCS: 93306

== ENCOUNTER 2021-03-06 08:10 | Outpatient (REF) | payer OTHER, SELFPAY ==
[2021-03-06 08:54] LABS: COVID-19 Test Negative (Negative)
== END 2021-03-06 08:11 | disposition home or self-care (01) ==
LOC: HO.LAB 08:10
PROVIDERS: Visit Provider Internal Medicine
DX: Z20.822 Contact with and (suspected) exposure to COVID-19 (principal)
CPT/HCPCS: 36415; 87635; C9803

== ENCOUNTER 2021-05-02 09:57 | Outpatient (REF) | payer OTHER, SELFPAY | END 2021-05-02 09:58 | disposition home or self-care (01) | LOC: HO.LAB 09:57 | PROVIDERS: PCP Internal Medicine; Visit Provider Internal Medicine | DX: Z20.822 Contact with and (suspected) exposure to COVID-19 (principal) | CPT/HCPCS: C9803; U0003; U0005 ==

== ENCOUNTER 2022-08-12 21:31 | Observation (INO) | payer OTHER, SELFPAY ==
--- NOTE | 2022-08-12 | ECG_ITS ---
Test Reason : palpitations Blood Pressure : / mmHG Vent. Rate : 146 BPM Atrial Rate : 000 BPM P-R Int : 000 ms QRS Dur : 084 ms QT Int : 292 ms P-R-T Axes : 000 -11 036 degrees QTc Int : 455 ms Atrial fibrillation with rapid ventricular response Abnormal ECG When compared with ECG of 30-NOV-2020 03:34, Atrial fibrillation has replaced Sinus rhythm Vent. rate has increased BY 69 BPM Referred By: Generic ED Physician Electronically Signed By:DARLENE LERMA MD
[2022-08-12 22:25] VITALS: BP 101/58; PULSE 91; RESP 16; TEMP 36.3; O2SAT 98; BMI 29.2
[2022-08-12 22:43] VITALS: BP 102/79; PULSE 146; RESP 19; TEMP 36.7; O2SAT 96
[2022-08-12 22:49] LABS: MANUAL DIFF FLAG NO
[2022-08-12 22:50] LABS: Basophils Percent Auto 0.4 % (0-2); Eosinophils Absolute Auto 0.3 X10*3/uL (0.0-0.4); Eosinophils Percent Auto 3.1 % (0-4); Hematocrit 44.1 % (42.0-52.0); Hemoglobin 15.5 g/dl (14.0-18.0); Imm Gran Abs Auto 0.03 X10*3/uL (0.00-0.03); Imm Gran Pct Auto 0.3 % (0.0-0.4); Lymphocytes Absolute Auto 2.9 X10*3/uL (1.2-4.9); Lymphocytes Percent Auto 31.3 % (20-40); Mean Corpuscular HGB Conc 35.1 g/dl (31.0-36.0); Mean Corpuscular Hemoglobin 31.1 pg (27.0-33.0); Mean Corpuscular Volume 88.6 fL (80.0-98.0); Mean Platelet Volume 8.4 fL (9.4-12.4); Monocytes Absolute Auto 1.1 X10*3/uL (0.1-1.2); Monocytes Percent Auto 12.1 % (2-11); Neutrophils Absolute Auto 4.9 x10*3/uL (2.0-8.3); Neutrophils Percent Auto 52.8 % (45-73); Platelet Count 281 X10*3/uL (160-400); Red Blood Count 4.98 X10*6/uL (4.60-5.80); Red Cell Distribution Width 12.9 % (11.0-16.0); White Blood Count 9.2 X10*3/uL (4.8-10.8)
[2022-08-12 22:55] VITALS: BP 110/84; PULSE 140
[2022-08-12 23:04] VITALS: BP 115/68; PULSE 93; RESP 15; O2SAT 96
[2022-08-12] MEDS: dilTIAZem HCL 50 MG/10 ML VIAL 20 MG IVPUSH (23:04)
--- NOTE | 2022-08-12 23:04 | ED.ARRPALP ---
HPI - Arrhythmia/Palpitations General Chief Complaint: Arrhythmia/Palpitations Stated Complaint: dry mouth, heart palpitations Time Seen by Provider: 08/12/22 22:55 Source: patient Mode of arrival: ambulatory Limitations: no limitations History of Present Illness HPI narrative: Patient with history of paroxysmal lawn for atrial fibrillation started for the 1st time last year after drinking caffeine off and on he had 1 or 2 episodes within the hospital this time patient had coffee today about 4 hours ago and noticed palpitation again which is persistent associated with slight diaphoresis and dry mouth no chest pain no syncope on arrival patient's heart rate was 146 patient not on any beta-jamarcus/calcium channel jamarcus/anticoagulants Related Data Home Medications Medication Instructions Recorded Confirmed gabapentin 300 mg capsule 300 mg PO TID 02/28/21 04/18/21 Previous Rx's Medication Instructions Recorded ibuprofen 600 mg tablet 600 mg PO Q6H PRN pain 15 days #30 12/30/20 tabs olopatadine 0.2 % eye drops 1 drp ophthalmic (eye) DAILY #2.5 12/30/20 mL ketotifen fumarate 0.025 % (0.035 1 drp ophthalmic (eye) BID PRN 02/10/21 %) eye drops ([place]) allergy symptoms #5 mL cyclobenzaprine 10 mg tablet 10 mg PO TID PRN muscle spasm #20 06/06/21 tabs oxycodone 5 mg tablet 5 mg PO BID pain #30 tabs 06/06/21 epinephrine 0.3 mg/0.3 mL 0.3 mg (0.3 mL) IM Q10M PRN 05/08/22 injection, auto-injector (EpiPen anaphylaxis #2 ea 2-Grant) Allergies Allergy/AdvReac Type Severity Reaction Status Date / Time Penicillins [PENICILLINS] Allergy Unknown RASH Verified 06/06/21 09:39 seafood Allergy Unknown Anaphylaxis Verified 06/06/21 09:39 tramadol AdvReac Intermediate constipation Verified 06/06/21 09:39 and dysuria Review of Systems Review of Systems: Yes all other systems are reviewed and are negative [facility] Past Medical History Medical History Chronic radicular low back pain Herniated lumbar intervertebral disc History of rib fracture Hyperglyceridemia Lower back pain Obesity (BMI 30-39.9) Surgical History History of discectomy Family History Family History Father No problems noted. Mother No problems noted. Social History Social History Housing: Apartment Alcohol intake: former Patient Tobacco Use Status: Never used Tobacco Tobacco use type: Cigarette e-Cigarette/Vaping Use: Never Used Second Hand Smoke Exposure: Yes Advance Directives: No service: No Current occupational status: employed Current occupational exposures/hazards: No Physical Exam Vital Signs: Vital Signs: Last Vital Signs Temp 97.7 F 08/12/22 23:30 Pulse 90 08/13/22 06:25 Resp 18 08/13/22 06:25 BP 99/68 08/13/22 06:25 Pulse Ox 96 08/13/22 06:25 O2 Del Method 08/13/22 06:25 BMI result Body Mass Index 29.2 Appearance: Alert. Oriented X3. No acute distress. Eyes: PERRLA, No Nystagmus ENT: Pharynx normal. Oral Mucosa moist Neck: Normal inspection. Neck supple. CVS: Irregularly irregular heart rate tachycardia, Pulses normal. Respiratory: No respiratory distress. Equal air entry bilateral, no wheezing/rales/rhonchi Abdomen: Soft and nontender. Bowel sounds are present, no mass palpable, no CVA tenderness Skin: Skin warm and dry. Normal skin color. Normal skin turgor. Extremities: No lower extremity edema. No calf tenderness Neuro: Oriented X 3. No motor deficit. No sensory deficit.No cerebellar signs , cranial nerves II-XII intact MDM - Arrhythmia/Palpitations MDM Narrative Medical decision making narrative: Patient with Lone atrial fibrillation with fast ventricular rate improved after IV Cardizem and IV Lopressor will admit patient as patient is still in AFib started on p.o. Cardizem cardiology to evaluate the patient Differential Diagnosis Differential diagnosis: Likely artial fibrillation Lab Data Attestation: I reviewed the patient's lab results. Result diagrams: 08/12/22 22:40 08/12/22 22:40 Labs: Lab Results 08/12/22 08/12/22 08/12/22 Range/Units 22:40 22:40 22:40 WBC 9.2 (4.8-10.8) X10*3/uL RBC 4.98 (4.60-5.80) X10*6/uL Hgb 15.5 (14.0-18.0) g/dl Hct 44.1 (42.0-52.0) % MCV 88.6 (80.0-98.0) fL MCH 31.1 (27.0-33.0) pg MCHC 35.1 (31.0-36.0) g/dl RDW 12.9 (11.0-16.0) % Plt Count 281 (160-400) X10*3/uL MPV 8.4 L (9.4-12.4) fL Immature Gran % (Auto) 0.3 (0.0-0.4) % Neut % (Auto) 52.8 (45-73) % Lymph % (Auto) 31.3 (20-40) % Brule % (Auto) 12.1 H (2-11) % Eos % (Auto) 3.1 (0-4) % Baso % (Auto) 0.4 (0-2) % Lymph # (Auto) 2.9 (1.2-4.9) X10*3/uL Brule # (Auto) 1.1 (0.1-1.2) X10*3/uL Eos # (Auto) 0.3 (0.0-0.4) X10*3/uL Baso # (Auto) 0.0 (0.0-0.2) X10*3/uL Abs Immat Gran (auto) 0.03 (0.00-0.03) X10*3/uL Absolute Neuts (auto) 4.9 (2.0-8.3) x10*3/uL Absolute Nucleated RBC 0.000 (0.0-0.012) X10*3/uL Nucleated RBC % (auto) 0.0 (0.0-0.2) /100WBC PT (10.0-13.1) SEC INR (0.9-1.1) Sodium 141 (135-145) mmol/L Potassium 4.2 (3.3-5.1) mmol/L Chloride 103 (96-108) mmol/L Carbon Dioxide 26 (22-29) mmol/L Anion Gap 16 (12-20) BUN 13 (9-16) mg/dL Creatinine 1.04 (0.5-1.4) mg/dL Estim Creat Clear Calc 99.3 Estimated GFR > 60 Random Glucose 81 (60-115) mg/dL Calcium 9.7 D (8.4-10.2) mg/dL Total Bilirubin 0.3 (0.0-1.0) mg/dL AST 16 (5-37) U/L ALT 28 (0-40) U/L Alkaline Phosphatase 91 (39-117) U/L Troponin I High Sens < 3.5 (<3.5-35.0) ng/L Total Protein 7.5 (6.5-8.0) g/dL Albumin 4.5 (3.5-5.0) g/dL 08/12/22 Range/Units 23:01 WBC (4.8-10.8) X10*3/uL RBC (4.60-5.80) X10*6/uL Hgb (14.0-18.0) g/dl Hct (42.0-52.0) % MCV (80.0-98.0) fL MCH (27.0-33.0) pg MCHC (31.0-36.0) g/dl RDW (11.0-16.0) % Plt Count (160-400) X10*3/uL MPV (9.4-12.4) fL Immature Gran % (Auto) (0.0-0.4) % Neut % (Auto) (45-73) % Lymph % (Auto) (20-40) % Brule % (Auto) (2-11) % Eos % (Auto) (0-4) % Baso % (Auto) (0-2) % Lymph # (Auto) (1.2-4.9) X10*3/uL Brule # (Auto) (0.1-1.2) X10*3/uL Eos # (Auto) (0.0-0.4) X10*3/uL Baso # (Auto) (0.0-0.2) X10*3/uL Abs Immat Gran (auto) (0.00-0.03) X10*3/uL Absolute Neuts (auto) (2.0-8.3) x10*3/uL Absolute Nucleated RBC (0.0-0.012) X10*3/uL Nucleated RBC % (auto) (0.0-0.2) /100WBC PT 10.8 (10.0-13.1) SEC INR 0.9 (0.9-1.1) Sodium (135-145) mmol/L Potassium (3.3-5.1) mmol/L Chloride (96-108) mmol/L Carbon Dioxide (22-29) mmol/L Anion Gap (12-20) BUN (9-16) mg/dL Creatinine (0.5-1.4) mg/dL Estim Creat Clear Calc Estimated GFR Random Glucose (60-115) mg/dL Calcium (8.4-10.2) mg/dL Total Bilirubin (0.0-1.0) mg/dL AST (5-37) U/L ALT (0-40) U/L Alkaline Phosphatase (39-117) U/L Troponin I High Sens (<3.5-35.0) ng/L Total Protein (6.5-8.0) g/dL Albumin (3.5-5.0) g/dL ECG Data Attestation: I personally reviewed and interpreted this ECG as follows: Interpretation: Atrial fibrillation with heart rate of 146 normal axis no acute ischemic changes Critical Care Time Critical Care Time Critical Care Time: Yes Total Critical Care Time: 35 Attestation: I spent 35 minutes of critical care, with interventions, assessments, speaking to patient, consultants, and family. Discharge Plan Discharge Clinical Impression: Atrial fibrillation with RVR Patient Disposition: Admitted As Inpatient
[2022-08-12 23:08] LABS: Alanine Aminotransferase 28 U/L (0-40); Albumin Level 4.5 g/dL (3.5-5.0); Alkaline Phosphatase 91 U/L (39-117); Anion Gap 16 (12-20); Aspartate Amino Transferase 16 U/L (5-37); Bilirubin Total 0.3 mg/dL (0.0-1.0); Blood Urea Nitrogen 13 mg/dL (9-16); Calcium 9.7 mg/dL (8.4-10.2); Carbon Dioxide 26 mmol/L (22-29); Chloride 103 mmol/L (96-108); Creatinine Clr Calc Pharmacy 99.3; Estimated Glomerular Filt Rate > 60; Glucose Random 81 mg/dL (60-115); Potassium 4.2 mmol/L (3.3-5.1); Sodium 141 mmol/L (135-145); Total Protein 7.5 g/dL (6.5-8.0)
[2022-08-12 23:11] LABS: Troponin-I High Sensitivity < 3.5 ng/L (<3.5-35.0)
[2022-08-12 23:12] LABS: INTERNATIONAL NORM RATIO 0.9 (0.9-1.1); Prothrombin Time 10.8 SEC (10.0-13.1)
[2022-08-12 23:30] VITALS: BP 99/66; PULSE 92; RESP 17; TEMP 36.5; O2SAT 97
[2022-08-13] VITALS (22 sets, daily range): BP systolic 84–116; BP diastolic 52–77; PULSE 66–127; RESP 16–23; TEMP 36.9–37.1; O2SAT 95–99
--- NOTE | 2022-08-13 | ECG_ITS ---
Test Reason : rythm change Blood Pressure : / mmHG Vent. Rate : 072 BPM Atrial Rate : 072 BPM P-R Int : 168 ms QRS Dur : 092 ms QT Int : 370 ms P-R-T Axes : 026 -41 039 degrees QTc Int : 405 ms Normal sinus rhythm Left anterior fascicular block RSR' or QR pattern in V1 suggests right ventricular conduction delay Abnormal ECG When compared with ECG of 12-AUG-2022 22:28, Sinus rhythm has replaced Atrial fibrillation Vent. rate has decreased BY 74 BPM Referred By: Parth Durham Electronically Signed By:DARLENE LERMA MD
[2022-08-13] MEDS: 0.9 % Sodium Chloride 1,000 ML 999 ML IV ×2 (00:54)
[2022-08-13] MEDS: Metoprolol Tartrate 5 MG/5 ML VIAL IVPUSH (01:18)
--- NOTE | 2022-08-13 02:16 | PM.IMHP ---
History of Present Illness Date of Service: 08/13/22 Chief Complaint: Palpitations This is a 47-year-old male with no pertinent past medical history who presents to the emergency department for evaluation of palpitations. Patient states he had a frappe today and soon after developed palpitations. He denies chest discomfort, shortness of breath, leg swelling, orthopnea, PND, fever, chills, nausea, vomiting, changes in urinary or bowel habits. No hair thinning, diarrhea, sensitivity to heat, irritability or anxiety. No palpitations were persistent and associated with mild diaphoresis. Patient had a similar episode about a year ago when he presented to the ER after consuming an energy drink. He was diagnosed with AFib which spontaneously converted to normal sinus rhythm in the ER then. He followed up with Cardiology and underwent transthoracic echocardiogram which was within normal limits. Also had a Holter monitor which did not reveal any acute rhythm abnormality. Patient did not have any more episodes until today after he had caffeine. In the emergency department, patient's heart rate was in the 150s. It improved to 100-110s after IV diltiazem and metoprolol but continues to be irregularly irregular. Review of Systems Review of Systems: All 13 review of systems are negative except as noted in [facility] Medical History Chronic radicular low back pain Herniated lumbar intervertebral disc History of rib fracture Hyperglyceridemia Lower back pain Obesity (BMI 30-39.9) Family History Father No problems noted. Mother No problems noted. Surgical History History of discectomy Social History Housing: Apartment Alcohol intake: former Patient Tobacco Use Status: Never used Tobacco Tobacco use type: Cigarette e-Cigarette/Vaping Use: Never Used Second Hand Smoke Exposure: Yes Advance Directives: No service: No Current occupational status: employed Current occupational exposures/hazards: No Meds Allergies Allergy/AdvReac Type Severity Reaction Status Date / Time Penicillins [PENICILLINS] Allergy Unknown RASH Verified 06/06/21 09:39 seafood Allergy Unknown Anaphylaxis Verified 06/06/21 09:39 tramadol AdvReac Intermediate constipation Verified 06/06/21 09:39 and dysuria Active Medications: Current Medications Acetaminophen (Acetaminophen 325 Mg Tablet) 650 mg PO Q6H PRN PRN Reason: Pain, Mild (Pain Scale 1-3) Diltiazem HCl (Diltiazem Hcl 30 Mg Tablet) 30 mg PO QID [facility]; Protocol Melatonin (Melatonin 3 Mg Tablet) 6 mg PO BEDTIME PRN PRN Reason: Insomnia Ondansetron HCl (Ondansetron Hcl 4 Mg/2 Ml Vial) 4 mg IVPUSH Q8H PRN PRN Reason: Nausea and Vomiting Pharmacy Consult (Consult Rx Perform Med Rec) 1 each MISCELLANE ONCE PRN PRN Reason: Consult order Sodium Chloride (0.9 % Sodium Chloride Flush 3 Ml Syringe) 3 ml IVFLUSH QSHIFT [facility] Home Medications Medication Instructions Recorded Confirmed Last Taken Type gabapentin 300 mg capsule 300 mg PO TID 02/28/21 04/18/21 Unknown History Physical Exam Vital Signs and Narrative: Vital Signs: Last Vital Signs Temp 97.7 F 08/12/22 23:30 Pulse 114 H 08/13/22 01:55 Resp 19 08/13/22 01:55 BP 100/77 08/13/22 01:55 Pulse Ox 98 08/13/22 01:23 O2 Del Method 08/13/22 01:17 BMI result Body Mass Index 29.2 Middle-aged male lying in bed in no distress Neck supple, no JVD Irregularly irregular, S1-S2 heard Regular breath sounds bilaterally, no wheezing or crackles appreciated Abdomen soft nontender, no guarding, no rigidity Patient is awake, alert and oriented to self, place, time and person ; no focal motor deficit Psych: Normal mood No pedal edema Results Labs CBC and Chem 7: 08/12/22 22:40 08/12/22 22:40 Labs: Laboratory Results - last 24 hr 08/12/22 08/12/22 08/12/22 22:40 22:40 22:40 MCV 88.6 MCH 31.1 MCHC 35.1 RDW 12.9 Plt Count 281 MPV 8.4 L Immature Gran % (Auto) 0.3 Neut % (Auto) 52.8 Lymph % (Auto) 31.3 Christian % (Auto) 12.1 H Eos % (Auto) 3.1 Baso % (Auto) 0.4 Lymph # (Auto) 2.9 Christian # (Auto) 1.1 Eos # (Auto) 0.3 Baso # (Auto) 0.0 Abs Immat Gran (auto) 0.03 Absolute Neuts (auto) 4.9 Absolute Nucleated RBC 0.000 Nucleated RBC % (auto) 0.0 PT INR Anion Gap 16 Estim Creat Clear Calc 99.3 Estimated GFR > 60 Random Glucose 81 Calcium 9.7 D Total Bilirubin 0.3 AST 16 ALT 28 Alkaline Phosphatase 91 Troponin I High Sens < 3.5 Total Protein 7.5 Albumin 4.5 08/12/22 23:01 MCV MCH MCHC RDW Plt Count MPV Immature Gran % (Auto) Neut % (Auto) Lymph % (Auto) Christian % (Auto) Eos % (Auto) Baso % (Auto) Lymph # (Auto) Christian # (Auto) Eos # (Auto) Baso # (Auto) Abs Immat Gran (auto) Absolute Neuts (auto) Absolute Nucleated RBC Nucleated RBC % (auto) PT 10.8 INR 0.9 Anion Gap Estim Creat Clear Calc Estimated GFR Random Glucose Calcium Total Bilirubin AST ALT Alkaline Phosphatase Troponin I High Sens Total Protein Albumin Assessment and Plan (1) Atrial fibrillation with RVR: Status: Acute Plan This is a 47-year-old male with no pertinent past medical history who presents to the emergency department for evaluation of palpitations. #. Atrial fibrillation with rapid ventricular rate, paroxysmal and non valvular -will admit patient with quality assurance monitor body. heart rate improved to 100-110s from 150s with IV metoprolol and diltiazem in the ER. Will initiate p.o. diltiazem and monitor response. Obtain TSH. Had an echocardiogram 1 year ago which was within normal limits, will defer at this time. Chads Vasc score is 0, low risk and no need for anticoagulation. DVT prophylaxis: None. Patient is ambulatory Regular diet Full code Quality Stroke Does the patient have a stroke diagnosis?: No VTE Prior VTE?: No VTE Risk Level:: Medical - low VTE Device Contraindication: Treatment Not Indicated VTE Drug Contraindication: Treatment Not Indicated
[2022-08-13] MEDS: dilTIAZem HCL 30 MG TABLET PO ×3 (02:21→15:03)
--- NOTE | 2022-08-13 03:49 | PC.NURSE ---
08/12/2022 22:43 Care of patient assumed now. He is alert, oriented x4, and presents today with chest palpitations. He currently denies chest pain. Hx afib, states once before when he drank caffeine something similar happened, but not in awhile. He states today he had a frapuchino and has been experiencing palpitations since. He denies dizziness or nausea. PIV established. HR 120s-150s AFIB.
--- NOTE | 2022-08-13 03:59 | PC.NURSE ---
Patient's HR remains AFIB 1teens-130s on continuous telemetry (up to 140s at times with urinal use/exertion). MD Praveen Farmer made aware now. Patient is resting in stretcher comfortably. Call ballesteros is within reach.
[2022-08-13] MEDS: dilTIAZem HCL 50 MG/10 ML VIAL 20 MG IVPUSH (04:36)
--- NOTE | 2022-08-13 04:39 | PC.NURSE ---
Patient's HR initially 1teens-120s, 20mg IV diltiazem given per [facility] policy with great effect to HR- HR now afib 70s-100s. BPs tend to lower with administration (80s/50s) but rise gradually after administration. patient alert, oriented x4. he denies chest pain or discomfort. he voids in urinal independently. call ballesteros is within reach.
--- NOTE | 2022-08-13 06:43 | PC.NURSE ---
Patient ambulatory to and from restroom to have BM. Prior to ambulation, HR had improved to AFIB 70s-low 100s. After ambulation, HR now AFIB 90s-120s. Patient provided with warm breakfast and is now seated at the edge of the stretcher eating. Continuous telemonitoring in place.
[2022-08-13] MEDS: 0.9 % Sodium Chloride Flush 3 ML SYRINGE IVFLUSH (07:31)
[2022-08-13] MEDS: dilTIAZem HCL 50 MG/10 ML VIAL 10 MG IVPUSH (09:01)
[2022-08-13 09:50] LABS: COVID-19 Test Negative (Negative); IDNOW Serial# 16C4AD1C
--- NOTE | 2022-08-13 09:51 | PM.CNCAR ---
History of Present Illness History of Present Illness Date of Service: 08/13/22 Chief complaint: Palpitations Narrative: This is a cardiology consultation regarding atrial fibrillation. Patient has a history of proximal atrial fibrillation. Has been seen by Dr. Villanueva last year. Based on his noted seems that patient reverted to sinus rhythm on his own and hence was not put on any medications. Also not on any anticoagulation due to low thromboembolic risk. He states that he does drink coffee and had some coffee yesterday after the started noticing palpitations sometime last evening around 06:00 o'clock or so. No other complaints like angina or shortness of breath. Then came to the ER and found to be in atrial fibrillation. Has received IV diltiazem as well as metoprolol and he is still in atrial fibrillation with rapid rate. Review of Systems Review of Systems: Yes all other systems are reviewed and are negative Constitutional: Constitutional: Reports as per HPI Eyes: Eyes: Reports as per HPI ENT: Reports as per HPI Cardiovascular: Cardiovascular: Reports as per HPI, Denies acrocyanosis, Denies cool extremities, Denies chest pain, Denies leg edema, Denies lightheadedness, Denies palpitations and Denies dyspnea Respiratory: Respiratory: Reports as per HPI, Reports no additional respiratory complaints and Denies dyspnea Gastrointestinal: Gastrointestinal: Reports as per HPI and Reports no additional gastrointestinal complaints Genitourinary: Genitourinary: Reports no additional male genitourinary complaints and Reports as per HPI Musculoskeletal: Musculoskeletal: Reports no additional musculoskeletal complaints and Reports as per HPI Integumentary/Breasts: Skin/Breast: Reports system reviewed and no additional complaints, except as docu Neurologic: Reports system reviewed and no additional complaints, except as documented and Reports as per HPI Psychiatric: Psychiatric: Reports no additional psychiatric complaints and Reports as per HPI Endocrine: Endocrine: Reports no additional endocrine complaints, Reports as per HPI and Denies palpitations Hematologic/Lymphatic: Hematologic/Lymphatic: Reports no additional hematologic/lymphatic complaints and Reports as per HPI Allergic/Immunologic: Allergic/Immunologic: Reports no additional allergic/immunologic complaints and Reports as per HPI [facility] Past Medical History Medical History Chronic radicular low back pain Herniated lumbar intervertebral disc History of rib fracture Hyperglyceridemia Lower back pain Obesity (BMI 30-39.9) Family History Family History Father No problems noted. Mother No problems noted. Surgical History Surgical History History of discectomy Social History Social History Housing: Apartment Alcohol intake: former Patient Tobacco Use Status: Never used Tobacco Tobacco use type: Cigarette e-Cigarette/Vaping Use: Never Used Second Hand Smoke Exposure: Yes Advance Directives: No service: No Current occupational status: employed Current occupational exposures/hazards: No Meds Allergies Allergy/AdvReac Type Severity Reaction Status Date / Time Penicillins [PENICILLINS] Allergy Unknown RASH Verified 06/06/21 09:39 seafood Allergy Unknown Anaphylaxis Verified 06/06/21 09:39 tramadol AdvReac Intermediate constipation Verified 06/06/21 09:39 and dysuria Active Medications: Current Medications Acetaminophen (Acetaminophen 325 Mg Tablet) 650 mg PO Q6H PRN PRN Reason: Pain, Mild (Pain Scale 1-3) Diltiazem HCl (Diltiazem Hcl 30 Mg Tablet) 30 mg PO QID [facility]; Protocol Last Admin: 08/13/22 07:30 Dose: 30 mg Flecainide Acetate (Flecainide Acetate 50 Mg Tablet) 300 mg PO ONCE ONE Stop: 08/13/22 09:40 Melatonin (Melatonin 3 Mg Tablet) 6 mg PO BEDTIME PRN PRN Reason: Insomnia Ondansetron HCl (Ondansetron Hcl 4 Mg/2 Ml Vial) 4 mg IVPUSH Q8H PRN PRN Reason: Nausea and Vomiting Pharmacy Consult (Consult Rx Perform Med Rec) 1 each MISCELLANE ONCE PRN PRN Reason: Consult order Sodium Chloride (0.9 % Sodium Chloride Flush 3 Ml Syringe) 3 ml IVFLUSH [facility] Last Admin: 08/13/22 07:31 Dose: 3 ml Home Medications Medication Instructions Recorded Confirmed Last Taken Type No Known Home Meds 08/13/22 08/13/22 Unknown History Physical Exam Vital Signs: Vital Signs: Last Vital Signs Temp 98.7 F 08/13/22 08:23 Pulse 122 H 08/13/22 08:50 Resp 16 08/13/22 08:23 BP 101/77 08/13/22 08:50 Pulse Ox 95 08/13/22 08:23 O2 Del Method 08/13/22 08:23 BMI result Body Mass Index 29.2 Const: General: comfortable and no acute distress Orientation/consciousness: patient oriented x3 HEENT: Other: Unremarkable Head: Yes normal to inspection Neck: Neck: Yes normal visual inspection Chest: Chest palpation & inspection: normal inspection of the chest Resp: Auscultation: clear to auscultation bilaterally Cardio: Palpation: normal PMI Heart sounds: S1 normal heart sound present, S2 normal heart sound present, no gallops, no murmurs and no rubs GI: Palpation (GI): Soft to palpation Back/Spine/Pelvis: Other: unremarkable Skin: General skin exam: no rashes or lesions noted Neuro: General: patient oriented x3 Extrem: General: Yes normal to inspection Psych: Mental Status: mental status grossly normal Objective Labs and Meds Result diagrams: 08/12/22 22:40 08/12/22 22:40 Lab results: Laboratory Results - last 24 hr 08/12/22 08/12/22 08/12/22 22:40 22:40 22:40 WBC 9.2 RBC 4.98 Hgb 15.5 Hct 44.1 MCV 88.6 MCH 31.1 MCHC 35.1 RDW 12.9 Plt Count 281 MPV 8.4 L Immature Gran % (Auto) 0.3 Neut % (Auto) 52.8 Lymph % (Auto) 31.3 Mcdonald % (Auto) 12.1 H Eos % (Auto) 3.1 Baso % (Auto) 0.4 Lymph # (Auto) 2.9 Mcdonald # (Auto) 1.1 Eos # (Auto) 0.3 Baso # (Auto) 0.0 Abs Immat Gran (auto) 0.03 Absolute Neuts (auto) 4.9 Absolute Nucleated RBC 0.000 Nucleated RBC % (auto) 0.0 PT INR Sodium 141 Potassium 4.2 Chloride 103 Carbon Dioxide 26 Anion Gap 16 BUN 13 Creatinine 1.04 Estim Creat Clear Calc 99.3 Estimated GFR > 60 Random Glucose 81 Calcium 9.7 D Total Bilirubin 0.3 AST 16 ALT 28 Alkaline Phosphatase 91 Troponin I High Sens < 3.5 Total Protein 7.5 Albumin 4.5 COVID-19 ([facility]) COVID-19 Clin Com 08/12/22 08/13/22 23:01 09:28 WBC RBC Hgb Hct MCV MCH MCHC RDW Plt Count MPV Immature Gran % (Auto) Neut % (Auto) Lymph % (Auto) Mcdonald % (Auto) Eos % (Auto) Baso % (Auto) Lymph # (Auto) Mcdonald # (Auto) Eos # (Auto) Baso # (Auto) Abs Immat Gran (auto) Absolute Neuts (auto) Absolute Nucleated RBC Nucleated RBC % (auto) PT 10.8 INR 0.9 Sodium Potassium Chloride Carbon Dioxide Anion Gap BUN Creatinine Estim Creat Clear Calc Estimated GFR Random Glucose Calcium Total Bilirubin AST ALT Alkaline Phosphatase Troponin I High Sens Total Protein Albumin COVID-19 ([facility]) Negative COVID-19 Clin Com See Note ECG Interpretation: Admission EKG shows atrial fibrillation with rate of 146/Min. Assessment and Plan (1) Atrial fibrillation with RVR: Status: Acute Plan He has already received several medications including IV diltiazem 10 mg, 20 mg, 20 mg, metoprolol 5 mg at different times. Still remains in atrial fibrillation rapid rate. His blood pressure is also on the lower side. His atrial fibrillation is only about 12+ hours old and he has very low thromboembolic risk. Echocardiogram from last year shows normal LVEF, 55-60% and otherwise unremarkable. Hence we can try him on flecainide 300 mg, 1 dose. Hopefully this will get him back to sinus rhythm. If not, may need cardioversion. Will follow up with you closely. Discussed with RN. Discussed with Dr. Durham. Procedures Date of Service Date of Service: 08/13/22
[2022-08-13] MEDS: Flecainide Acetate 50 MG TABLET 300 MG PO (10:04)
--- NOTE | 2022-08-13 11:07 | PM.EVENT ---
Event Note Date of Service: 08/13/22 Event Note: Admitted this am with AF w/ RVR, give IV and P cardizem and started on Flecainide by cardiology. No indication anticoagulation at this time.
--- NOTE | 2022-08-13 16:28 | P.DS_ITS ---
DS: Providers Provider Date of Service: 08/13/22 Date of admission: 08/13/22 02:09 Primary care physician: Nurys Brambila MD Consults: 08/13/22 08:45 Consult to Cardiology Routine Consulting Provider: Jose Luis Lopes Reason for consultation: AFIB with RVR Has provider been notified: Yes DS: Diagnosis Discharge Diagnosis (1) Atrial fibrillation with RVR: Status: Acute DS: Summary Hospital Course Hospital Course: Patient with no significant PMH and presented with palpitation and noted to be in AfIB with RVR and observe given oral cardizem, 1 dose of IV cardiazem and was seen by cardiolog and given Flecanide and shortly after converted to sinus and has remained so for over 4 hours and will discharge with Toprolol xl 25 mg daily and to follow up with cardiology Time Spent with Patient Time attestation: Total time spent providing and/or coordinating discharge services: Discharge coordination time: Greater than 30 minutes Quality: Safe Use of Opioids Does Pt have an Active Cancer Diagnosis on the Problem List?: No Quality: Stroke Does the patient have a stroke diagnosis?: No Physical Exam Vital Signs: Vital Signs: Last Vital Signs Temp 98.8 F 08/13/22 14:21 Pulse 81 08/13/22 15:03 Resp 16 08/13/22 15:03 BP 113/72 08/13/22 15:03 Pulse Ox 96 08/13/22 15:03 O2 Del Method 08/13/22 15:03 BMI result Body Mass Index 29.2 DS: Data Data Completed and Pending Labs on day of discharge: Laboratory Results - last 24 hr 08/12/22 08/12/22 08/12/22 22:40 22:40 22:40 WBC 9.2 RBC 4.98 Hgb 15.5 Hct 44.1 MCV 88.6 MCH 31.1 MCHC 35.1 RDW 12.9 Plt Count 281 MPV 8.4 L Immature Gran % (Auto) 0.3 Neut % (Auto) 52.8 Lymph % (Auto) 31.3 [place] % (Auto) 12.1 H Eos % (Auto) 3.1 Baso % (Auto) 0.4 Lymph # (Auto) 2.9 [place] # (Auto) 1.1 Eos # (Auto) 0.3 Baso # (Auto) 0.0 Abs Immat Gran (auto) 0.03 Absolute Neuts (auto) 4.9 Absolute Nucleated RBC 0.000 Nucleated RBC % (auto) 0.0 PT INR Sodium 141 Potassium 4.2 Chloride 103 Carbon Dioxide 26 Anion Gap 16 BUN 13 Creatinine 1.04 Estim Creat Clear Calc 99.3 Estimated GFR > 60 Random Glucose 81 Calcium 9.7 D Total Bilirubin 0.3 AST 16 ALT 28 Alkaline Phosphatase 91 Troponin I High Sens < 3.5 Total Protein 7.5 Albumin 4.5 COVID-19 (HO[facility]I) COVID-19 Aquiris 08/12/22 08/13/22 23:01 09:28 WBC RBC Hgb Hct MCV MCH MCHC RDW Plt Count MPV Immature Gran % (Auto) Neut % (Auto) Lymph % (Auto) [place] % (Auto) Eos % (Auto) Baso % (Auto) Lymph # (Auto) [place] # (Auto) Eos # (Auto) Baso # (Auto) Abs Immat Gran (auto) Absolute Neuts (auto) Absolute Nucleated RBC Nucleated RBC % (auto) PT 10.8 INR 0.9 Sodium Potassium Chloride Carbon Dioxide Anion Gap BUN Creatinine Estim Creat Clear Calc Estimated GFR Random Glucose Calcium Total Bilirubin AST ALT Alkaline Phosphatase Troponin I High Sens Total Protein Albumin COVID-19 ([facility]LLI) Negative COVID-19 Clin Com See Note Discharge Plan Discharge Anticipated Discharge Date/Time: 08/13/22 16:25 Patient Disposition: Home, Self-Care Discharge Diagnosis: Paroxysmal AFIB Referrals: Kosta,Nurys Dee MD [Primary Care Provider] - 1 Week Discharge Medications: New metoprolol succinate [Toprol XL] 25 mg tablet extended release 24 hr 25 mg PO DAILY Qty: 30 0RF Discharge Orders: Discharge Order (Routine); Ordered 08/13/22 Ordered By: Parth Durham Diet: Advance to usual diet Activity on Discharge: As tolerated Stand Alone Forms: Patient Portal Discharge page Care Plan Goals: prevent afib Health Concerns: atrial fibrilation Plan of Treatment: Take toprol xl 25 mg daily follow up with Dr. Lopes Assessment: as above
== END 2022-08-13 16:48 | disposition home or self-care (01) ==
LOC: HO.ED 23:28 → HO.EDOVER 08-13 02:14
PROVIDERS: Admitting Provider Student in an Organized Health Care Education/Training Program; Emergency Provider Internal Medicine; PCP Internal Medicine; Visit Provider Internal Medicine
DX: I48.20 Chronic atrial fibrillation, unspecified (principal); Z79.899 Other long term (current) drug therapy; Z20.822 Contact with and (suspected) exposure to COVID-19
CPT/HCPCS: 36415; 80053; 84484; 85025; 85610; 87635; 93005; 96374; 96375; 96376; 99219; 99285

== ENCOUNTER → 2022-08-24 15:10 | Outpatient (BNVA) | payer OTHER, SELFPAY | PROVIDERS: PCP Internal Medicine; Visit Provider Internal Medicine Cardiovascular Disease | DX: I48.91 Unspecified atrial fibrillation (principal); G47.30 Sleep apnea, unspecified | CPT/HCPCS: 93005; 99212 ==

== ENCOUNTER → 2023-01-10 20:30 | Outpatient (REF) | payer OTHER, SELFPAY | LOC: HO.SL 20:30 | PROVIDERS: PCP Internal Medicine; Visit Provider Internal Medicine Cardiovascular Disease | DX: G47.33 Obstructive sleep apnea (adult) (pediatric) (principal); G47.61 Periodic limb movement disorder | CPT/HCPCS: 95811 ==

== ENCOUNTER 2023-03-09 22:26 | Emergency (ER) | payer OTHER, SELFPAY ==
--- NOTE | ~2023-03-09 | XR_ITS ---
EXAMINATION: XR LUMBOSACRAL SPINE CLINICAL INFORMATION: Back pain COMPARISON: 01/13/2021 TECHNIQUE: Three views of the lumbosacral spine. FINDINGS: There is anatomic alignment of the lumbar vertebral bodies and posterior elements. Vertebral body heights are maintained. Redemonstrated endplate osteophyte formation at the superior endplate of L4. Disc space narrowing is redemonstrated at L3-L4. No acute fracture is seen. Sacroiliac joints appear intact. XR/XR lumbar spine 2-3V IMPRESSION: No acute findings identified. Redemonstrated disc space narrowing at L3-L4.
[2023-03-09 22:32] VITALS: BP 109/63; PULSE 85; RESP 18; TEMP 36.6; O2SAT 96; BMI 31.6
[2023-03-10 00:23] VITALS: BP 107/63; PULSE 73; RESP 17; TEMP 36.5; O2SAT 94
--- NOTE | 2023-03-10 00:37 | ED.BACK ---
HPI - Back Pain/Injury General Chief Complaint: Back Pain/Injury Stated Complaint: lower back pain Time Seen by Provider: 03/10/23 00:31 Source: patient Mode of arrival: ambulatory Limitations: no limitations History of Present Illness HPI Narrative: Patient history of chronic back pain apparently tripped on stairs without any fall or injury yesterday since then complaining of pain more so on the left side no bladder or bowel incontinence patient ambulatory as such ran out of his oxycodone was relaxed Related Data Previous Rx's Medication Instructions Recorded metoprolol succinate 25 mg 25 mg PO DAILY #90 tabs 08/24/22 tablet,extended release 24 hr (Toprol XL) flecainide 150 mg tablet 300 mg PO ONCE PRN Afib #30 tabs 09/22/22 oxycodone 5 mg tablet 5 mg PO Q8H PRN pain #15 tabs 02/19/23 cyclobenzaprine 10 mg tablet 10 mg PO Q8H #20 tabs 03/10/23 oxycodone 5 mg tablet 5 mg PO Q6H PRN pain #20 tabs 03/10/23 Allergies Allergy/AdvReac Type Severity Reaction Status Date / Time seafood Allergy Unknown Anaphylaxis Verified 02/19/23 14:06 tramadol AdvReac Intermediate constipation Verified 02/19/23 14:06 and dysuria Review of Systems Review of Systems: Yes all other systems are reviewed and are negative [facility] Past Medical History Medical History Afib Allergic conjunctivitis Allergic reaction Chronic radicular low back pain Herniated lumbar intervertebral disc History of rib fracture Hyperglyceridemia Low back strain Lower back pain Obesity (BMI 30-39.9) Sleep disorder breathing Surgical History History of discectomy Family History Family History Father No problems noted. Mother No problems noted. Social History Social History Housing: Apartment Alcohol intake: former Patient Tobacco Use Status: Never used Tobacco Tobacco use type: Cigarette Smoked in Last 30 Days: No e-Cigarette/Vaping Use: Never Used Second Hand Smoke Exposure: Yes Advance Directives: No Advance Directives Information Provided: No service: No Current occupational status: employed Current occupational exposures/hazards: No Cognitive needs: No Hearing needs: No Vision needs: No Physical Exam Vital Signs: Vital Signs: Last Vital Signs Temp 97.7 F 03/10/23 00:23 Pulse 73 03/10/23 00:23 Resp 17 03/10/23 00:23 BP 107/63 03/10/23 00:23 Pulse Ox 94 03/10/23 00:23 O2 Del Method Room Air 03/10/23 00:23 BMI result Body Mass Index 31.6 Appearance: Alert. Oriented X3. No acute distress. Neck: Normal inspection. Neck supple. CVS: Normal heart rate and rhythm. Pulses normal. Respiratory: No respiratory distress. Equal air entry bilateral, Abdomen: Soft and nontender. Bowel sounds are present, no mass palpable, no CVA tenderness Skin: Skin warm and dry. Normal skin color. Normal skin turgor. back: Left lumbar paraspinal muscle spasm no midline tenderness SLR negative bilateral neuromuscular intact Extremities: No lower extremity edema. No calf tenderness Neuro: Oriented X 3. No motor deficit. No sensory deficit.No cerebellar signs , cranial nerves II-XII intact Medications Administered Discontinued Medications Generic Name Dose Route Start Last Admin Trade Name Freq PRN Reason Stop Dose Admin Cyclobenzaprine HCl 10 mg 03/10/23 00:45 03/10/23 00:56 Cyclobenzaprine Hcl 10 Mg Tablet PO 03/10/23 00:46 10 mg ONCE ONE Administration Oxycodone HCl 10 mg 03/10/23 00:45 03/10/23 00:56 Oxycodone Hcl Immed Release 5 Mg Tablet PO 03/10/23 00:46 10 mg ONCE ONE Administration Medical Decision Making Medical Decision Making [facility] Narrative: Patient with acute lumbar strain no spinal cord involvement. Discharge patient on oxycodone and Flexeril Discharge Plan Discharge Clinical Impression: Strain of lumbar region Patient Disposition: Home, Self-Care Instructions: Low Back Strain (ED) Additional Instructions: Take pain medication and muscle relaxant as prescribed Follow with PCP if not better Prescriptions: New cyclobenzaprine 10 mg tablet 10 mg PO Q8H Qty: 20 0RF oxycodone 5 mg tablet 5 mg PO Q6H PRN (Reason: pain) Qty: 20 0RF Rx Instructions: Partial Fill upon patient request. No Action flecainide 150 mg tablet 300 mg PO ONCE PRN (Reason: Afib) Qty: 30 1RF Rx Instructions: Take 2 tablets when you have prolonged Afib episode. If you do not improve in 2-3 hours then go to the ER. oxycodone 5 mg tablet 5 mg PO Q8H PRN (Reason: pain) Qty: 15 0RF Rx Instructions: Partial Fill upon patient request. metoprolol succinate [Toprol XL] 25 mg tablet extended release 24 hr 25 mg PO DAILY Qty: 90 4RF Stand Alone Forms: Work/School Release Interventions: ED Discharge Assessment Last Done: 03/10/23 01:00 Discharge Date/Time: 03/10/23 01:01
[2023-03-10] MEDS: Cyclobenzaprine HCl 10 MG TABLET PO (00:56)
[2023-03-10] MEDS: oxyCODONE HCl Immed Release 5 MG TABLET 10 MG PO (00:56)
== END 2023-03-10 01:01 | disposition home or self-care (01) ==
PROVIDERS: Emergency Provider Internal Medicine; PCP Internal Medicine
DX: S39.012A Strain of muscle, fascia and tendon of lower back, initial encounter (principal); W10.8XXA Fall (on) (from) other stairs and steps, initial encounter; Y93.9 Activity, unspecified; Y92.9 Unspecified place or not applicable; Y99.9 Unspecified external cause status
CPT/HCPCS: 72100; 99283; 99284

== ENCOUNTER 2023-05-17 09:58 | Outpatient (AMB) | payer OTHER, SELFPAY ==
[2023-05-17 10:07] VITALS: BP 112/72; PULSE 80; O2SAT 99; BMI 32.2
--- NOTE | 2023-05-17 10:07 | A.OFFPC_ITS ---
Vital Signs 05/17/23 10:07 Height 5 ft 9 in Weight 218 lb BMI 32.2 BP 112/72 Blood Pressure Location Rt brachial Pulse 80 Pulse Source Pulse Oximeter Pulse Oximetry (%) 99 Oxygen Delivery Method Room Air Intake Visit Reasons: Follow Up/ Back Pain Allergies seafood Allergy (Unknown, Verified 05/17/23 10:10) Anaphylaxis tramadol Adverse Reaction (Intermediate, Verified 05/17/23 10:10) constipation and dysuria Medication List - Last Reconciled 05/17/23 by Nurys Brambila MD [CPAP 8 cm humidified water AIRFIT N20 Small NAsal MAsk As directed] cyclobenzaprine 10 mg PO Q8H metoprolol succinate ER (Toprol XL) 25 mg PO DAILY oxycodone 5 mg PO Q8H PRN Tobacco use date assessed: 05/17/23 HPI Follow Up/ Back Pain HPI Details 47-year-old obese male with severe obstructive sleep apnea paroxysmal atrial fibrillation chronic low back pain hypercholesterolemia last seen in January 2023. Patient was referred to the neurosurgeon. Coming in for follow-up. melissa ([id number])PAtient states has no machine [facility] Medical History (Updated 05/17/23 @ 10:36 by Nurys Brambila MD) Afib Allergic conjunctivitis Allergic reaction Chronic radicular low back pain Herniated lumbar intervertebral disc History of rib fracture Hyperglyceridemia Low back strain Lower back pain Obesity (BMI 30-39.9) Sleep disorder breathing Surgical History History of discectomy Family History Father No problems noted. Mother No problems noted. Social History Housing: Apartment Alcohol intake: former Patient Tobacco Use Status: Never used Tobacco Tobacco use type: Cigarette e-Cigarette/Vaping Use: Never Used Second Hand Smoke Exposure: Yes service: No Current occupational status: employed Current occupational exposures/hazards: No Cognitive needs: No Hearing needs: No Vision needs: No Questionnaire Thrive Questionnaire Date Thrive assessed: 01/07/23 AUDIT C Alcohol Use Questionnaire (AUDIT-C) 1. How often do you have a drink containing alcohol?: Never 2. How many drinks containing alcohol do you have on a typical day when you are drinking?: 1 or 2 (0) 3. How often do you have six or more drinks on one occasion?: Never Total Score: 0 Score Reviewed/Action Taken: No NEVA-7 AMB Questionnaire NEVA-7 Date NEVA - 7 assessed: 01/07/23 Source: Developed by Drs. Raman Mejia, Zahra Norman, Sandeep Ham and colleagues, with an educational tosha from [employer]. Physical exam (Primary Care) Vital Signs: Last Vital Signs Pulse 80 05/17/23 10:07 BP 112/72 05/17/23 10:07 Pulse Ox 99 05/17/23 10:07 Oxygen Delivery Method Room Air 05/17/23 10:07 BMI result Body Mass Index 32.2 Tobacco/Smoking Status: Tobacco use Status Tobacco use date assessed 05/17/23 05/17/23 10:11 Patient Tobacco Use Status Never used Tobacco 05/17/23 10:11 Tobacco use type Cigarette 05/17/23 10:11 e-Cigarette/Vaping Use Never Used 05/17/23 10:11 Thrive Assessment: Date of Thrive Assessment Date Thrive assessed 01/07/23 05/17/23 10:11 Const General: alert; No acute distress Eyes Conjunctivae: conjunctivae normal Resp Auscultation: clear to auscultation bilaterally Cardio Rate: regular rate Rhythm: regular rhythm GI Inspection: Yes normal to inspection Extrem General: Yes normal to inspection and No edema Assessment and Plan Assessment & Plan (1) Chronic radicular low back pain: Comment: Herniated disc January 2007 Dr. Leroy; L4-5 diskectomy December 2007, MRI December 2020 progression Code(s): M54.16 - Radiculopathy, lumbar region; G89.29 - Other chronic pain Plan: Narcotic pain meds: Is being prescribed with the understanding that these medications are potentially addictive and should be used only when absolutely necessary and must always be secured. Any remaining pills should be safely disposed off appropriately. Patient is advised that narcotics can impaired judgment and one should not drive or operate heavy machinery while taking these medications. Never share these medications with anybody and do not leave them unattended. They will not be replaced under any circumstances. (2) Severe obstructive sleep apnea: Comment: 47-year-old male that I have not seen for long time had a sleep study 01/10/2023 severe degree of sleep apnea AHI of 44 per hour need ear of 88% patient was on 47-year-old male that I have not seen for long time had a sleep study 01/10/2023 severe degree of sleep apnea AHI of 44 per hour need ear of 88% patient was trialed on CPAP 8 cm water with AirFit N and 20 small nasal mask. Code(s): G47.33 - Obstructive sleep apnea (adult) (pediatric) Plan: PAtient has not received the CPAP. will follow up on this. advised to ff up with sleep management. long discussion with the patient the importance of taking care of this (3) Obesity (BMI 30-39.9): Code(s): E66.9 - Obesity, unspecified Plan: Diet and exercise (4) Paroxysmal atrial fibrillation: Comment: In sinus rhythm at this point. Asymptomatic. Low chads Vasc score. Code(s): I48.0 - Paroxysmal atrial fibrillation Plan: Patient continues to follow-up with cardiology on flecainide and metoprolol (5) Colon cancer screening: Code(s): Z12.11 - Encounter for screening for malignant neoplasm of colon (6) Insomnia: Code(s): G47.00 - Insomnia, unspecified (7) Visual changes: Code(s): H53.9 - Unspecified visual disturbance Orders: Referrals Ophthalmology Referral H53.9 - Unspecified visual disturbance Gastroenterology Referral Z12.11 - Encounter for screening for malignant neoplasm of colon Medications: New [CPAP 8 cm humidified water AIRFIT N20 Small NAsal MAsk] As directed 1 ea 0RF G47.33 - Obstructive sleep apnea (adult) (pediatric) trazodone 50 mg PO BEDTIME PRN 30 tabs 2RF sleep G47.00 - Insomnia, unspecified Refilled cyclobenzaprine 10 mg PO Q8H 30 tabs 4RF G89.29 - Other chronic pain, M54.16 - Radiculopathy, lumbar region oxycodone Partial Fill upon patient request. 5 mg PO Q6H PRN 20 tabs 0RF pain G47.33 - Obstructive sleep apnea (adult) (pediatric) Discontinued oxycodone Partial Fill upon patient request. Discontinued Reason: Duplicate 5 mg PO Q8H PRN 15 tabs 0RF pain M54.40 - Lumbago with sciatica, unspecified side Coding Level of Care Code Est Pt Level 4 (14468) Diagnoses Chronic radicular low back pain M54.16; G89.29 Severe obstructive sleep apnea G47.33 Obesity (BMI 30-39.9) E66.9 Paroxysmal atrial fibrillation I48.0 Colon cancer screening Z12.11 Insomnia G47.00 Visual changes H53.9
== END 2023-05-17 10:42 | disposition home or self-care (01) ==
PROVIDERS: PCP Internal Medicine; Visit Provider Internal Medicine
DX: M54.16 Radiculopathy, lumbar region (principal); I48.0 Paroxysmal atrial fibrillation; Z68.32 Body mass index [BMI] 32.0-32.9, adult; E66.9 Obesity, unspecified; G89.29 Other chronic pain; G47.33 Obstructive sleep apnea (adult) (pediatric); Z12.11 Encounter for screening for malignant neoplasm of colon; G47.00 Insomnia, unspecified; H53.9 Unspecified visual disturbance
CPT/HCPCS: 99214

== ENCOUNTER 2023-11-16 20:37 | Emergency (ER) | payer OTHER, SELFPAY ==
--- NOTE | ~2023-11-16 | XR_ITS ---
EXAMINATION: XR CHEST CLINICAL INFORMATION: Dyspnea COMPARISON: Chest x-ray November 30, 2020 TECHNIQUE: 2 views of the chest were obtained. FINDINGS: Vague nodular density over the right upper lobe on the frontal view of chest measuring about 2 cm. Possible additional smaller nodule also in right lower lung peripherally. Neither of these were evident on the chest x-ray November 30, 2020. Consider CT of chest for follow-up. No pleural effusion. No pulmonary vascular congestion. Cardiac mediastinal contours are normal. XR/XR chest 2V IMPRESSION: 1. Vague nodular densities over the right lung. CT of chest recommended for follow-up. 2. No pulmonary vascular congestion.
[2023-11-16 20:49] VITALS: BP 107/63; PULSE 78; RESP 20; TEMP 36.5; O2SAT 94; BMI 32.5
--- NOTE | 2023-11-16 20:51 | ED.GENADULT ---
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 No travel. Hx of same in past with wheezing any time he gets URI MD complaint: wheezing Onset (ago): week(s) (1) Location: chest Radiation: non-radiation Severity: mild Relieving factors: none Exacerbating factors: movement and other (cough) Associated symptoms: cough Treatments prior to arrival: none Related Data Previous Rx's Medication Instructions Recorded metoprolol succinate 25 mg 25 mg PO DAILY #90 tabs 08/24/22 tablet,extended release 24 hr (Toprol XL) cyclobenzaprine 10 mg tablet 10 mg PO Q8H #30 tabs 05/17/23 oxycodone 5 mg tablet 5 mg PO Q6H PRN pain #20 tabs 05/17/23 trazodone 50 mg tablet 50 mg PO BEDTIME PRN sleep #30 tabs 05/17/23 CPAP 8 cm H20 humidified air #1 ea 07/14/23 AIRFIT N20 Small NAsal MAsk albuterol sulfate 90 mcg/actuation 2 puff inhalation QID PRN 11/17/23 aerosol inhaler shortness of breath or wheezing #6.7 grams azithromycin 250 mg tablet See Rx Instructions PO .COMPLEX #6 11/17/23 tabs prednisone 20 mg tablet 40 mg (2 x 20 mg) PO DAILY 4 days 11/17/23 #8 tabs Allergies Allergy/AdvReac Type Severity Reaction Status Date / Time seafood Allergy Unknown Anaphylaxis Verified 11/16/23 20:49 tramadol AdvReac Intermediate constipation Verified 11/16/23 20:49 and dysuria Review of Systems Review of Systems: Constitutional : No Fever, No Chills ENT/Mouth : No Hoarseness, No sore throat, No Rhinorrhea Eyes: No Redness, No Discharge, No Vision Changes Cardiovascular : No Chest Pain, positive SOB, positive Dyspnea on Exertion, No Edema Respiratory : positive Cough, No Sputum, positive Wheezing, Gastrointestinal : No Nausea, No Vomiting, No Diarrhea, No abdominal Pain Genitourinary : No Dysuria, No Hematuria Musculoskeletal : No joint pain, No Myalgias Skin : No rash Neuro : No Weakness, No Numbness, No Headache Psych : No anxiety, depression Heme/Lymph: No Bruising, No Bleeding Endocrine : No Polyuria, No Polydipsia All other systems reviewed and are negative [facility] Past Medical History Attestation statement: The following information was validated with the patient. Source: old records reviewed Onset Date is defined in the Problem List Problems that require an onset date and time if occurred within 24 hrs of arrival to the ED Aortic Dissection and Rupture; Neurologic impairment; Cardiopulmonary Arrest; Endotracheal Intubation; Insertion or Replacement of Mechanical Circulatory Assist Device Medical History Sleep disorder breathing Afib Allergic reaction Obesity (BMI 30-39.9) Herniated lumbar intervertebral disc Lower back pain Low back strain Allergic conjunctivitis History of rib fracture Hyperglyceridemia Chronic radicular low back pain Surgical History History of discectomy Family History Family History Father No problems noted. Mother No problems noted. Social History Social History Housing: Apartment Alcohol intake: former Patient Tobacco Use Status: Never used Tobacco Tobacco use type: Cigarette e-Cigarette/Vaping Use: Never Used Second Hand Smoke Exposure: Yes Advance Directives: No Advance Directives Information Provided: Yes service: No Current occupational status: employed Current occupational exposures/hazards: No Cognitive needs: No Hearing needs: No Vision needs: No Physical Exam ED Vital Signs: Vital Signs - 24 hr 11/16/23 20:49 11/17/23 00:32 11/17/23 00:55 Temperature 97.7 F 97.9 F 98 F Pulse Rate 78 66 87 Respiratory Rate 20 20 18 Blood Pressure 107/63 110/62 124/85 Pulse Oximetry 94 95 99 Oxygen Delivery Method Room Air Room Air Room Air 11/17/23 05:49 Temperature 98.0 F Pulse Rate 70 Respiratory Rate 18 Blood Pressure 114/83 Pulse Oximetry 97 Oxygen Delivery Method Room Air BMI result Body Mass Index 32.5 Appearance: Alert. Oriented X3. No acute distress. Eyes: Pupils equal, round and reactive to light. ENT: Pharynx normal. Neck: Normal inspection. Neck supple. CVS: Normal heart rate and rhythm. Pulses normal. Respiratory: No respiratory distress. Breath sounds mild diffuse end exp wheezes Abdomen: Soft and nontender. Skin: Skin warm and dry. Normal skin color. Normal skin turgor. Extremities: No lower extremity edema. No calf ttp Neuro: Oriented X 3. No motor deficit. No sensory deficit. Course Course Course Narrative: This is a rapid medical exam: Additional HPI, ROS, PE not included below will be deferred to primary provider. Patient is a 48-year-old male with history of asthma presenting to the ED with complaint of shortness of breath and nonproductive cough. Denies fevers. States does not have a nebulizer at home. Decreased air movement with expiratory wheezing in triage. Room air sat 94%. Plan: viral swabs, CXR, will need tx Medications Administered Discontinued Medications Generic Name Dose Route Start Last Admin Trade Name Freq PRN Reason Stop Dose Admin Prednisone 60 mg 11/17/23 07:32 11/17/23 07:42 Prednisone 20 Mg Tablet PO 11/17/23 07:33 60 mg ONCE ONE Administration Medical Decision Making Medical Decision Making [facility] Narrative: 48 yo male with PMH of afib, asthma, INEZ, back pain here with c/o asthma symptoms no inhaler now with wheezes not toxic, no hypoxia will need swabs, CXR and start on bronch protocol, INH and steroids - no CP to suggest ACS or VTE. No resp distress Differential Diagnosis Differential Diagnoses: The differential diagnosis associated with the presentation includes bronchitis, pneumonia, viral syndrome Admission/Observation Consideration of admission/observation: Escalation of care including admission/observation considered no hypoxia stable for DC Lab Data [facility] Lab Attestation statement: I reviewed the patient's lab results. Labs: Lab Results 11/16/23 Range/Units 21:24 COVID-19 (HOLLI) Negative (Negative) COVID-19 Clin Com See Note Influenza Type A (CARSON) Negative (Negative) Influenza Type B (CARSON) Negative (Negative) Influenza A & B Note See Note Independent Interpretation I performed an independent interpretation of an: Plain X-Ray Radiology Impression Discussion of test interpretation with radiology: I have reviewed the radiologist's reading. External Record Review External record reviewed: Inpatient record Prescription Management I considered prescription management with: Antibiotic and Other Discharge Plan Discharge Clinical Impression: Bronchitis Asthma with exacerbation Qualifiers: Asthma severity: mild Asthma persistence: persistent Qualified Code(s): J45.31 - Mild persistent asthma with (acute) exacerbation Patient Disposition: Home, Self-Care Instructions: Asthma (ED), Chronic Bronchitis (ED) Additional Instructions: return for worsening symptoms fevers, vomiting, inability to breathe, chest pain or any other concerns. finish all treatments. CT CHEST WITH DR SHEEHAN - PLEASE HAVE THIS DONE CT PECHO CON DR SHEEHAN - POR FAVOR EARLE ESTO Regrese si los s?ntomas empeoran: fiebre, v?mitos, incapacidad para respirar, dolor en el pecho o cualquier otra inquietud. terminar todos los tratamientos. Prescriptions: New prednisone 20 mg tablet 40 mg PO DAILY 4 Days Qty: 8 0RF albuterol sulfate 90 mcg/actuation HFA aerosol inhaler 2 puff inhalation QID PRN (Reason: shortness of breath or wheezing) Qty: 6.7 0RF azithromycin 250 mg tablet See Rx Instructions .ROUTE .COMPLEX Qty: 6 0RF Rx Instructions: For 250 mg dose pack: take 500 mg today (day 1), then 250 mg for 4 days (days 2-5) No Action (DME) CPAP 8 cm H20 humidified air AIRFIT N20 Small NAsal MAsk See Rx Instructions .Route .MEDSUPPLY Qty: 1 0RF Rx Instructions: As directed heated humidifier and all supplies cyclobenzaprine 10 mg tablet 10 mg PO Q8H Qty: 30 4RF oxycodone 5 mg tablet 5 mg PO Q6H PRN (Reason: pain) Qty: 20 0RF Rx Instructions: Partial Fill upon patient request. trazodone 50 mg tablet 50 mg PO BEDTIME PRN (Reason: sleep) Qty: 30 2RF metoprolol succinate [Toprol XL] 25 mg tablet extended release 24 hr 25 mg PO DAILY Qty: 90 4RF Print Language: Macedonian
[2023-11-16 21:51] LABS: COVID-19 Test Negative (Negative); IDNOW Serial# 16C4AD1C; IDNOW Serial# 55D5AD1C; Influenza A Negative (Negative); Influenza B2 Negative (Negative)
[2023-11-17 00:32] VITALS: BP 110/62; PULSE 66; RESP 20; TEMP 36.6; O2SAT 95
[2023-11-17 00:55] VITALS: BP 124/85; PULSE 87; RESP 18; TEMP 36.6; O2SAT 99
[2023-11-17 05:49] VITALS: BP 114/83; PULSE 70; RESP 18; TEMP 36.7; O2SAT 97
[2023-11-17] MEDS: predniSONE 20 MG TABLET 60 MG PO (07:42)
[2023-11-17] MEDS: Albuterol Sulfate 2.5 MG, Albuterol/Iprat 2.5/0.5MG 3 ML 3 ML INHALE (07:43)
[2023-11-17 07:44] VITALS: PULSE 74; RESP 16; O2SAT 94
[2023-11-17 08:00] VITALS: BP 125/73; PULSE 83; RESP 22; TEMP 36.4; O2SAT 94
== END 2023-11-17 08:10 | disposition home or self-care (01) ==
PROVIDERS: Registered Nurse Emergency; Emergency Provider Emergency Medicine; PCP Internal Medicine
DX: J40 Bronchitis, not specified as acute or chronic (principal); J45.31 Mild persistent asthma with (acute) exacerbation; Z11.52 Encounter for screening for COVID-19
CPT/HCPCS: 71046; 87502; 87635; 93005; 94640; 99212; 99284

== ENCOUNTER 2023-11-17 14:34 | Outpatient (AMB) | payer OTHER, SELFPAY ==
[2023-11-17 14:45] VITALS: BP 130/70; PULSE 123; BMI 32.9
--- NOTE | 2023-11-17 14:45 | MHC.OFFVIS ---
Intake Vital Signs 11/17/23 14:45 Height 5 ft 9 in Weight 223 lb 1.725 oz BMI 32.9 BP 130/70 Blood Pressure Location Lt brachial Position Sitting Pulse 123 H Intake Visit Reasons: follow up Intake Note: f/up pt its feeling fine. had some chest pressure last night. Healthcare Administrative Assistant Required: No Accompanied by: Spouse Allergies seafood Allergy (Unknown, Verified 11/16/23 20:49) Anaphylaxis tramadol Adverse Reaction (Intermediate, Verified 11/16/23 20:49) constipation and dysuria Medication List - Last Reconciled 11/17/23 by Carl Villanueva MD albuterol sulfate 90 mcg/actuation 2 puffs inhalation QID PRN azithromycin For 250 mg dose pack: take 500 mg today (day 1), then 250 mg for 4 days (days 2-5) [CPAP 8 cm H20 humidified air AIRFIT N20 Small NAsal MAsk As directed heated humidifier and all supplies ] cyclobenzaprine 10 mg PO Q8H metoprolol succinate ER (Toprol XL) 25 mg PO DAILY prednisone 40 mg (2 x 20 mg) PO DAILY 4 days HPI HPI Comments History of Present Illness Details Pleasant 48 gentleman who has paroxysmal atrial fibrillation. He went to the emergency department on August 13 with palpitations and was noticed to be in atrial fibrillation with rapid ventricular response. He was given Cardizem as well as metoprolol but he continued to be in uncontrolled atrial fibrillation. At this stage he was seen by Cardiology and was given flecainide 300 mg which cardioverted him to sinus rhythm. Since then he has been doing well. He did not have any recent episode of than this episode on 08/13/2022. He was started on metoprolol succinate 25 mg and sent home. He has been taking that regularly. There is some concern about snoring at night and sleep apnea and he has never had sleep study in the past. Fahad [id number]: He returns for follow-up. He has been doing well. On last visit we discussed about stopping all caffeinated drinks and he has not been using them. He has not had any further episode of atrial fibrillation. He is currently recovering from bronchitis and viral illness and is currently taking albuterol inhaler and azithromycin. He used then he lived before coming and is currently tachycardic with sinus tachycardia and 120s. He also has not been using the metoprolol succinate for close to a month because he ran out. He has not use flecainide as pill in the pocket approach since we prescribed it. He has been diagnosed with sleep apnea and is in the process of getting appointment with sleep Medicine. [facility] Medical History Sleep disorder breathing Afib Allergic reaction Obesity (BMI 30-39.9) Herniated lumbar intervertebral disc Lower back pain Low back strain Allergic conjunctivitis History of rib fracture Hyperglyceridemia Chronic radicular low back pain Surgical History History of discectomy Family History Father No problems noted. Mother No problems noted. Social History Housing: Apartment Alcohol intake: former Patient Tobacco Use Status: Never used Tobacco Tobacco use type: Cigarette e-Cigarette/Vaping Use: Never Used Second Hand Smoke Exposure: Yes service: No Current occupational status: employed Current occupational exposures/hazards: No Cognitive needs: No Hearing needs: No Vision needs: No Review of Systems Const Reports chills, Reports fatigue, Reports fever(s), Reports frequent falls, Reports weakness, Reports weight gain and Reports weight loss ENT Reports dizziness Card Reports chest pain, Reports leg edema, Reports lightheadedness, Reports palpitations, Reports dyspnea and Reports dyspnea on exertion Resp Reports cough, Reports dyspnea and Reports dyspnea on exertion GI Reports hematochezia Musc Reports abnormal gait, Reports muscle weakness, Reports numbness, Reports radiating pain into limb and Reports tingling Neuro Reports abnormal gait, Reports dizziness, Reports frequent falls, Reports numbness, Reports tingling and Reports weakness Endo Reports fatigue and Reports palpitations Physical Exam Vital Signs: Last Vital Signs Pulse 123 H 11/17/23 14:45 BP 130/70 11/17/23 14:45 BMI result Body Mass Index 32.9 GENERAL APPEARANCE: in no acute distress, pleasant. NECK: no carotid bruit, no jugular venous distention. SKIN: no suspicious lesions, warm and dry. HEART: no murmurs, regular rate and rhythm. Regular tachycardia. LUNGS: clear to auscultation bilaterally. ABDOMEN: soft, nontender. EXTREMITIES: no edema. PERIPHERAL PULSES: equal. NEUROLOGIC: No gross deficits, AAO X 3 Office Procedures EKG Details: Sinus tachycardia 123 beats per minute, normal axis, otherwise normal EKG, QTC 469 milliseconds. [id number], Complete Assessment & Plan Assessment & Plan (1) Paroxysmal atrial fibrillation: Comment: In sinus rhythm at this point. Asymptomatic. Low chads Vasc score. Code(s): I48.0 - Paroxysmal atrial fibrillation Plan Pleasant 48 year gentleman who is here for follow-up. He has background history of paroxysmal atrial fibrillation in the setting of caffeine use. He has not had any further episodes. He also has been diagnosed with sleep apnea and is in the process of seeing sleep Medicine to arrange CPAP mask. We had discussion before and we decided to do pill in the pocket approach but in the last few months he has not required any flecainide. He is tachycardic today and has sinus tachycardia but also has viral illness and currently is using albuterol inhaler as well as antibiotics. He also has not been using his metoprolol because he ran out. I am sending a new script for him for resuming metoprolol. I have discussed with him about exercise and weight loss because most of his issues are related to being overweight at this point. Thank you for allowing me to participate in the care of your patient. Please feel free to contact me if you have any questions. Medications: Refilled metoprolol succinate ER (Toprol XL) 25 mg PO DAILY 90 tabs 4RF metoprolol succinate ER (Toprol XL) 25 mg PO DAILY 90 tabs 4RF Coding Level of Care Code Est Pt Level 4 (92262) Diagnoses Paroxysmal atrial fibrillation I48.0 CPT Codes EKG - CPT: 91211-Rvihkeymjiapcnrpy, Complete ([id number])
== END 2023-11-17 15:25 | disposition home or self-care (01) ==
PROVIDERS: PCP Internal Medicine; Visit Provider Internal Medicine Cardiovascular Disease
DX: I48.0 Paroxysmal atrial fibrillation (principal)
CPT/HCPCS: 93010; 99214

== ENCOUNTER 2023-11-30 08:18 | Outpatient (AMB) | payer OTHER, SELFPAY ==
[2023-11-30 08:34] VITALS: BP 92/68; PULSE 62; O2SAT 97; BMI 32.6
--- NOTE | 2023-11-30 08:34 | A.OFFPC_ITS ---
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 Required: No Allergies seafood Allergy (Unknown, Verified 11/30/23 08:35) Anaphylaxis tramadol Adverse Reaction (Intermediate, Verified 11/30/23 08:35) constipation and dysuria Medication List - Last Reconciled 11/30/23 by Nurys Brambila MD albuterol sulfate 90 mcg/actuation 2 puffs inhalation QID PRN [CPAP 8 cm H20 humidified air AIRFIT N20 Small NAsal MAsk As directed heated humidifier and all supplies ] cyclobenzaprine 10 mg PO Q8H metoprolol succinate ER (Toprol XL) 25 mg PO DAILY oxycodone 5 mg PO Q6H PRN Tobacco use date assessed: 11/30/23 Dental Screening Dental Screen Date: 11/30/23 HPI f/u for asthma HPI Details 48-year-old obese male with a diagnosis of atrial fibrillation obstructive sleep apnea chronic low back pain coming in for follow-up last seen in May 2023. Review of the notes in November patient was just seen by Cardiology for follow-up ER visit August last year had palpitations Cardizem and metoprolol given flecainide 300 mg which cardioverted him and has had no episode since August 2022. He stopped using the metoprolol because he ran out.. Patient also had a recent ER visit 11/17/2023 asthma exacerbation patient has been advised CT scan of the chest this was not done. Patient had a chest x- ray in November 2023 which showed a nodular density of the right lung and has been advised a CT of the chest. And this was seen already in 2016 which has been advised to get a chest CT. PAtient has not been sick and gets sob only on respiratory infections and could nto remember last time, no fevers, cough, , no productive , no congestion anymore, patient also has the chronic low back pain that exacerbated just recently and denies any fall or trauma but knows that on twisting movement gets the pain. Patient wants to be referred to the [facility] and neurosurgeon.. Patient had last MRI done in 2020 and discussed that when we meet with neurosurgeon we will need a now MRI. This has been requested. Discussed about asthma that if keeps on having exacerbation will need a controller inhaler. [facility] Medical History Sleep disorder breathing Afib Allergic reaction Obesity (BMI 30-39.9) Herniated lumbar intervertebral disc Lower back pain Low back strain Allergic conjunctivitis History of rib fracture Hyperglyceridemia Chronic radicular low back pain Surgical History History of discectomy Family History Father No problems noted. Mother No problems noted. Social History Housing: Apartment Alcohol intake: former Patient Tobacco Use Status: Never used Tobacco Tobacco use type: Cigarette e-Cigarette/Vaping Use: Never Used Second Hand Smoke Exposure: Yes service: No Current occupational status: employed Current occupational exposures/hazards: No Cognitive needs: No Hearing needs: No Vision needs: No Questionnaire PHQ-9 Over the last 2 weeks, how often have you been bothered by any of the following problems? 1. Little interest or pleasure in doing things: not at all 2. Feeling down, depressed, or hopeless: not at all 3. Trouble falling or staying asleep, or sleeping too much: not at all 4. Feeling tired or having little energy: not at all 5. Poor appetite or overeating: not at all 6. Feeling bad about yourself - or that you are a failure or have let yourself or your family down: not at all 7. Trouble concentrating on things, such as reading the newspaper or watching television: not at all 8. Moving or speaking so slowly that other people could have noticed. Or the opposite - being so fidgety or restless that you have been moving around a lot more than usual: not at all 9. Thoughts that you would be better off or of hurting yourself in some way: not at all Total score: 0 Depression Screening Interpretation: Negative Depression Screening Done: Yes [id number] - PHQ-9 Billing: Yes Source: Developed by Drs. Raman Mejia, Sandeep Zapien and colleagues, with an educational tosha from [employer]. Thrive Questionnaire Date Thrive assessed: 11/30/23 AUDIT C Alcohol Use Questionnaire (AUDIT-C) 1. How often do you have a drink containing alcohol?: Never 2. How many drinks containing alcohol do you have on a typical day when you are drinking?: 1 or 2 (0) 3. How often do you have six or more drinks on one occasion?: Never Total Score: 0 Score Reviewed/Action Taken: No NEVA-7 AMB Questionnaire NEVA-7 Date NEVA - 7 assessed: 11/30/23 Source: Developed by Drs. Raman Mejia, Sandeep Zapien and colleagues, with an educational tosha from [employer]. Physical exam (Primary Care) Vital Signs: Last Vital Signs Pulse 62 11/30/23 08:34 BP 92/68 11/30/23 08:34 Pulse Ox 97 11/30/23 08:34 Oxygen Delivery Method Room Air 11/30/23 08:34 BMI result Body Mass Index 32.6 Tobacco/Smoking Status: Tobacco use Status Tobacco use date assessed 11/30/23 11/30/23 08:35 Patient Tobacco Use Status Never used Tobacco 11/30/23 08:35 Tobacco use type Cigarette 11/30/23 08:35 e-Cigarette/Vaping Use Never Used 11/30/23 08:35 PHQ-9: PHQ-9 Score PHQ-9: Total score 0 11/30/23 08:46 Depression Screening Interpretation: Negative Thrive Assessment: Date of Thrive Assessment Date Thrive assessed 11/30/23 11/30/23 08:35 Const General: alert; No acute distress Eyes Conjunctivae: conjunctivae normal Resp Auscultation: clear to auscultation bilaterally Cardio Rate: regular rate Rhythm: regular rhythm GI Inspection: Yes normal to inspection Extrem General: Yes normal to inspection and No edema Assessment and Plan Assessment & Plan (1) Severe obstructive sleep apnea: Comment: 47-year-old male that I have not seen for long time had a sleep study 01/10/2023 severe degree of sleep apnea AHI of 44 per hour need ear of 88% patient was on 47-year-old male that I have not seen for long time had a sleep study 01/10/2023 severe degree of sleep apnea AHI of 44 per hour need ear of 88% patient was trialed on CPAP 8 cm water with AirFit N and 20 small nasal mask. Code(s): G47.33 - Obstructive sleep apnea (adult) (pediatric) Plan: Discussion about the importance of getting the CPAP this was tested in December 2022. not able to get the CPAP due to insurance issues. knows to contact the Sleep medicine neurologist (2) Obesity (BMI 30-39.9): Code(s): E66.9 - Obesity, unspecified Plan: Diet and exercise (3) Paroxysmal atrial fibrillation: Comment: In sinus rhythm at this point. Asymptomatic. Low chads Vasc score. Code(s): I48.0 - Paroxysmal atrial fibrillation Plan: Patient follows up with Cardiology placed back on metoprolol and discussion on flecainide as a pill in the pocket type of treatment (4) Lung density on x-ray: Comment: December 2015, November 2020, November 2023 Code(s): J98.4 - Other disorders of lung Plan: Advised to get a CT of the chest (5) Asthma: Code(s): J45.909 - Unspecified asthma, uncomplicated Plan: Albuterol inhaler sent. Discussed that if the patient keeps on getting short of breath will need a controller. (6) Chronic radicular low back pain: Comment: Herniated disc January 2007 Dr. Leroy; L4-5 diskectomy December 2007, MRI December 2020 progression Code(s): M54.16 - Radiculopathy, lumbar region; G89.29 - Other chronic pain Plan: MRI requested referral to [facility] and the neurosurgeon. Orders: Orders Comprehensive Met. Panel Today E66.9 - Obesity, unspecified Thyroid Stimulating Hormone Today E66.9 - Obesity, unspecified CT chest w IV con Today J98.4 - Other disorders of lung Complete Blood Count Auto Diff Today E66.9 - Obesity, unspecified Free T4 (Free Thyroxine) Today E66.9 - Obesity, unspecified Lipid Panel Today E66.9 - Obesity, unspecified, E78.00 - Pure hypercholesterolemia, unspecified Vitamin B12 and Folate Today E66.9 - Obesity, unspecified MR lumbar spine wo con Today G89.29 - Other chronic pain, M54.16 - Radiculopathy, lumbar region Referrals Neurosurgery Referral G. - Other chronic pain, M54.16 - Radiculopathy, lumbar region Orthopedics Referral . - Other chronic pain, M54.16 - Radiculopathy, lumbar region Medications: New alprazolam 0.25 mg PO DAILY 2 tabs 0RF take 30 min before the procedure G89. - Other chronic pain, M54.16 - Radiculopathy, lumbar region Refilled albuterol sulfate 90 mcg/actuation 2 puffs inhalation QID PRN 8.5 grams 0RF shortness of breath or wheezing J45.909 - Unspecified asthma, uncomplicated oxycodone Partial Fill upon patient request. 5 mg PO Q6H PRN 20 tabs 0RF pain G. - Other chronic pain, M54.16 - Radiculopathy, lumbar region Discontinued azithromycin Discontinued Reason: Patient Completed Course For 250 mg dose pack: take 500 mg today (day 1), then 250 mg for 4 days (days 2-5) 6 tabs 0RF Coding Level of Care Code Est Pt Level 4 (66261) Diagnoses Severe obstructive sleep apnea G47.33 Obesity (BMI 30-39.9) E66.9 Paroxysmal atrial fibrillation I48.0 Lung density on x-ray J98.4 Asthma J45.909 Chronic radicular low back pain M54.16;
== END 2023-11-30 09:19 | disposition home or self-care (01) ==
PROVIDERS: PCP Internal Medicine; Visit Provider Internal Medicine
DX: G47.33 Obstructive sleep apnea (adult) (pediatric) (principal); E66.9 Obesity, unspecified; I48.0 Paroxysmal atrial fibrillation; Z68.32 Body mass index [BMI] 32.0-32.9, adult; J98.4 Other disorders of lung; J45.909 Unspecified asthma, uncomplicated; M54.16 Radiculopathy, lumbar region; G89.29 Other chronic pain
CPT/HCPCS: 99214

== ENCOUNTER 2023-12-08 02:16 | Emergency (ER) | payer OTHER, SELFPAY ==
--- NOTE | ~2023-12-08 | XR_ITS ---
EXAMINATION: XR CHEST CLINICAL INFORMATION: Right-sided chest pain COMPARISON: 11/16/2023 TECHNIQUE: 2 views of the chest were obtained. FINDINGS: Lungs are well expanded. An irregular nodular opacity measuring approximately 1.5 cm projects over the right anterior second rib and is not well seen on the lateral radiograph. This appears to correspond to the nodular opacity seen in the posterior right upper lobe on the chest CT from 01/23/2016. This nodule remains similar in appearance compared to chest radiograph from 11/30/2020. Linear opacity of atelectasis in the inferior lingula. No acute airspace disease or pleural effusion. No pneumothorax. Cardiac silhouette is normal in size. The hilar contours are normal. No acute osseous abnormality. XR/XR chest 2V IMPRESSION: * No acute pulmonary disease. * An old irregular nodule is present in the right upper lobe. The apparent long-term stability suggests that this is a benign nodule. It was seen on the chest CT from 01/23/2016. Note that chest CT follow up would be helpful to further characterize this abnormality and to further help ensure that this indeed has stable size/morphology compared to 01/23/2016.
[2023-12-08 02:18] VITALS: BP 123/85; PULSE 68; RESP 22; TEMP 36.6; O2SAT 96; BMI 33.3
--- NOTE | 2023-12-08 02:24 | ECG_ITS ---
Test Reason : chest pain Blood Pressure : / mmHG Vent. Rate : 063 BPM Atrial Rate : 063 BPM P-R Int : 154 ms QRS Dur : 090 ms QT Int : 374 ms P-R-T Axes : 010 -04 044 degrees QTc Int : 382 ms Normal sinus rhythm Normal ECG No significant changes when compared with the previous EKG of 13 aug 2022 Referred By: Generic ED Physician Electronically Signed By:IVAN LAURA
[2023-12-08 03:30] VITALS: BP 123/76; PULSE 60; RESP 15; TEMP 36.4; O2SAT 98
[2023-12-08 03:43] LABS: MANUAL DIFF FLAG NO
[2023-12-08 03:44] LABS: Basophils Percent Auto 0.4 % (0-2); Eosinophils Absolute Auto 0.5 X10*3/uL (0.0-0.4); Hematocrit 40.6 % (42.0-52.0); Hemoglobin 14.7 g/dl (14.0-18.0); Imm Gran Abs Auto 0.02 X10*3/uL (0.00-0.03); Imm Gran Pct Auto 0.3 % (0.0-0.4); Lymphocytes Percent Auto 25.4 % (20-40); Mean Corpuscular HGB Conc 36.2 g/dl (31.0-36.0); Mean Corpuscular Hemoglobin 31.4 pg (27.0-33.0); Mean Corpuscular Volume 86.8 fL (80.0-98.0); Monocytes Percent Auto 12.2 % (2-11); Neutrophils Absolute Auto 4.4 x10*3/uL (2.0-8.3); Neutrophils Percent Auto 55.7 % (45-73); Platelet Count 266 X10*3/uL (160-400); Red Blood Count 4.68 X10*6/uL (4.60-5.80); Red Cell Distribution Width 12.2 % (11.0-16.0); White Blood Count 7.9 X10*3/uL (4.8-10.8)
[2023-12-08 04:00] LABS: Alanine Aminotransferase 29 U/L (0-40); Albumin Level 4.1 g/dL (3.5-5.0); Alkaline Phosphatase 78 U/L (39-117); Anion Gap 12 (12-20); Aspartate Amino Transferase 16 U/L (5-37); Bilirubin Direct 0.1 mg/dL (0.0-0.5); Bilirubin Total 0.4 mg/dL (0.0-1.0); Blood Urea Nitrogen 12 mg/dL (9-16); Carbon Dioxide 25 mmol/L (22-29); Chloride 104 mmol/L (96-108); Estimated Glomerular Filt Rate > 60; Glucose Random 100 mg/dL (60-115); Lipase 35 U/L (8-78); Potassium 3.8 mmol/L (3.3-5.1); Sodium 137 mmol/L (135-145); Total Protein 6.8 g/dL (6.5-8.0)
[2023-12-08 04:04] LABS: COVID-19 Test Negative (Negative); IDNOW Serial# 08D9AD1C; IDNOW Serial# 152EDE1D; Influenza A Negative (Negative); Influenza B2 Negative (Negative)
[2023-12-08 04:11] LABS: Troponin-I High Sensitivity < 2.7 ng/L (<3.5-35.0)
[2023-12-08 04:13] VITALS: BP 115/84; PULSE 67; PULSE 68; RESP 16; O2SAT 96
--- NOTE | 2023-12-08 05:09 | ED.CHESTPAIN ---
HPI - Chest Pain General Chief Complaint: Chest Pain Stated Complaint: trouble breathing Time Seen by Provider: 12/08/23 05:09 History of Present Illness HPI narrative: The patient is a 48-year-old male was seen at this hospital last month for an episode of bronchitis. At that time he says he thought he had wheezing and shortness of breath. He was treated in the emergency room and released. He followed up with his regular doctor. He says that all of his symptoms have improved except for pain on the right side of his chest that is much worse when he coughs or moves or uses his right arm. Of his ibuprofen and comes to the emergency room because of this pain. No pain or swelling in his legs. No shortness of breath. No hemoptysis. Related Data Previous Rx's Medication Instructions Recorded cyclobenzaprine 10 mg tablet 10 mg PO Q8H #30 tabs 05/17/23 CPAP 8 cm H20 humidified air #1 ea 07/14/23 AIRFIT N20 Small NAsal MAsk metoprolol succinate 25 mg 25 mg PO DAILY #90 tabs 11/17/23 tablet,extended release 24 hr (Toprol XL) albuterol sulfate 90 mcg/actuation 2 puff inhalation QID PRN 11/30/23 aerosol inhaler shortness of breath or wheezing #8.5 grams alprazolam 0.25 mg tablet 0.25 mg PO DAILY take 30 min 11/30/23 before the procedure #2 tabs ibuprofen 600 mg tablet 600 mg PO QID PRN pain #14 tabs 12/08/23 oxycodone 5 mg tablet 5 mg PO Q6H PRN pain #20 tabs 12/08/23 Allergies Allergy/AdvReac Type Severity Reaction Status Date / Time seafood Allergy Unknown Anaphylaxis Verified 11/30/23 08:35 tramadol AdvReac Intermediate constipation Verified 11/30/23 08:35 and dysuria Review of Systems Review of Systems: Yes all other systems are reviewed and are negative PMFSH Past Medical History Medical History Sleep disorder breathing Afib Allergic reaction Obesity (BMI 30-39.9) Herniated lumbar intervertebral disc Lower back pain Low back strain Allergic conjunctivitis History of rib fracture Hyperglyceridemia Chronic radicular low back pain Surgical History History of discectomy Family History Family History Father No problems noted. Mother No problems noted. Social History Social History Housing: Apartment Alcohol intake: former Patient Tobacco Use Status: Never used Tobacco Tobacco use type: Cigarette Smoked in Last 30 Days: No e-Cigarette/Vaping Use: Never Used Second Hand Smoke Exposure: Yes Use of substances other than those prescribed or required for medical reasons: No Advance Directives: No Advance Directives Information Provided: No service: No Current occupational status: employed Current occupational exposures/hazards: No Cognitive needs: No Hearing needs: No Vision needs: No Physical Exam Vital Signs: Vital Signs: Last Vital Signs Temp 97.5 F 12/08/23 03:30 Pulse 70 12/08/23 06:00 Resp 18 12/08/23 06:00 BP 118/88 12/08/23 06:00 Pulse Ox 97 12/08/23 06:00 O2 Del Method Room Air 12/08/23 03:30 BMI result Body Mass Index 33.3 Const: Other: The patient is awake and alert and holding the right side of his chest. HEENT: Other: The face is symmetrical. ?Mucous membranes moist. Eyes: Other: Pupils are round equal, conjunctivae are clear, extraocular movements intact Neck: Neck: Yes no JVD Chest: Other: The patient has a fairly localized area of exquisite chest wall tenderness the right anterior chest in the midclavicular line just below the nipple. Resp: Other: No wheezes apparent. Breath sounds seem normal bilaterally. Effort & Inspection: normal respiratory effort Auscultation: clear to auscultation bilaterally Cardio: Rate: regular rate Rhythm: regular rhythm Heart sounds: S1 normal heart sound present and S2 normal heart sound present GI: Other: Abdomen is soft and nontender Skin: Other: Skin is dry and unremarkable Neuro: Other: The patient is awake and alert, speech is clear, face is symmetrical, moving his extremities symmetrically and appropriately. The patient is grossly neurologically intact Extrem: Other: No peripheral edema, no calf swelling or tenderness, no calf asymmetry. Medications Administered Discontinued Medications Generic Name Dose Route Start Last Admin Trade Name Freq PRN Reason Stop Dose Admin Acetaminophen 975 mg 12/08/23 04:19 12/08/23 05:10 Acetaminophen 325 Mg Tablet PO 12/08/23 04:20 975 mg ONCE ONE Administration Ibuprofen 600 mg 12/08/23 04:19 12/08/23 05:10 Ibuprofen 600 Mg Tablet PO 12/08/23 04:20 600 mg ONCE ONE Administration Lidocaine 1 patch 12/08/23 06:27 12/08/23 06:43 Lidocaine 4 % Patch Adh..Patch TRANSDERMA 12/08/23 06:28 Not Given ONCE ONE Protocol Medical Decision Making Medical Decision Making MDM Narrative: The patient is a 48-year-old male who recently had an asthma exacerbation. He had been coughing a lot. The patient feels his asthma has resolved but he has residual pain on the right side of his chest which is very bothersome. He is exquisitely tender to the chest wall on the right side. I think the patient has a chest wall syndrome. Chest x-ray shows no acute findings. Lungs are clear. Labs are unremarkable. He will be treated with ibuprofen, acetaminophen, and a lidocaine patch. He should follow up with his regular doctor. He should return if worse. Lab Data 12/08/23 02:40 12/08/23 02:40 Labs: Lab Results 12/08/23 Range/Units 02:40 WBC 7.9 (4.8-10.8) X10*3/uL RBC 4.68 (4.60-5.80) X10*6/uL Hgb 14.7 (14.0-18.0) g/dl Hct 40.6 L (42.0-52.0) % MCV 86.8 (80.0-98.0) fL MCH 31.4 (27.0-33.0) pg MCHC 36.2 H (31.0-36.0) g/dl RDW 12.2 (11.0-16.0) % Plt Count 266 (160-400) X10*3/uL MPV 9.0 L (9.4-12.4) fL Immature Gran % (Auto) 0.3 (0.0-0.4) % Neut % (Auto) 55.7 (45-73) % Lymph % (Auto) 25.4 (20-40) % [place] % (Auto) 12.2 H (2-11) % Eos % (Auto) 6.0 H (0-4) % Baso % (Auto) 0.4 (0-2) % Lymph # (Auto) 2.0 (1.2-4.9) X10*3/uL [place] # (Auto) 1.0 (0.1-1.2) X10*3/uL Eos # (Auto) 0.5 H (0.0-0.4) X10*3/uL Baso # (Auto) 0.0 (0.0-0.2) X10*3/uL Abs Immat Gran (auto) 0.02 (0.00-0.03) X10*3/uL Absolute Neuts (auto) 4.4 (2.0-8.3) x10*3/uL Absolute Nucleated RBC 0.000 (0.0-0.012) X10*3/uL Nucleated RBC % (auto) 0.0 (0.0-0.2) /100WBC Sodium 137 (135-145) mmol/L Potassium 3.8 (3.3-5.1) mmol/L Chloride 104 (96-108) mmol/L Carbon Dioxide 25 (22-29) mmol/L Anion Gap 12 (12-20) BUN 12 (9-16) mg/dL Creatinine 0.85 (0.5-1.4) mg/dL Estim Creat Clear Calc 128.0 Estimated GFR > 60 Random Glucose 100 (60-115) mg/dL Calcium 9.0 D (8.4-10.2) mg/dL Total Bilirubin 0.4 (0.0-1.0) mg/dL Direct Bilirubin 0.1 (0.0-0.5) mg/dL AST 16 (5-37) U/L ALT 29 (0-40) U/L Alkaline Phosphatase 78 (39-117) U/L Troponin I High Sens < 2.7 (<3.5-35.0) ng/L Total Protein 6.8 (6.5-8.0) g/dL Albumin 4.1 (3.5-5.0) g/dL Lipase 35 (8-78) U/L COVID-19 (HOLLI) Negative (Negative) COVID-19 Clin Com See Note Influenza Type A (CARSON) Negative (Negative) Influenza Type B (CARSON) Negative (Negative) Influenza A & B Note See Note Discharge Plan Discharge Clinical Impression: Right-sided chest wall pain Patient Disposition: Home, Self-Care Additional Instructions: Your pain seems very much to be pain in the muscles of your right chest wall. This probably happened from coughing. You ibuprofen every 6 hours as needed for pain. You may also take 2 extra-strength acetaminophen (Tylenol) to 3 times a day as needed. There are [id number] patches called SalonPas. You can apply these patches once a day for 12 hours to the area of discomfort. This may help with the pain as well. Please follow-up soon with your regular doctor. Return to the emergency room if worse Prescriptions: New ibuprofen 600 mg tablet 600 mg PO QID PRN (Reason: pain) Qty: 14 0RF No Action (DME) CPAP 8 cm H20 humidified air AIRFIT N20 Small NAsal MAsk See Rx Instructions .Route .MEDSUPPLY Qty: 1 0RF Rx Instructions: As directed heated humidifier and all supplies oxycodone 5 mg tablet 5 mg PO Q6H PRN (Reason: pain) Qty: 20 0RF Rx Instructions: Partial Fill upon patient request. albuterol sulfate 90 mcg/actuation HFA aerosol inhaler 2 puff inhalation QID PRN (Reason: shortness of breath or wheezing) Qty: 8.5 0RF alprazolam 0.25 mg tablet 0.25 mg PO DAILY Qty: 2 0RF cyclobenzaprine 10 mg tablet 10 mg PO Q8H Qty: 30 4RF metoprolol succinate [Toprol XL] 25 mg tablet extended release 24 hr 25 mg PO DAILY Qty: 90 4RF Referrals: Po,Nurys Dee MD [Primary Care Provider] - (Right-sided chest wall pain) Interventions: ED Discharge Assessment Last Done: 12/08/23 06:41 Discharge Date/Time: 12/08/23 06:41
[2023-12-08] MEDS: Ibuprofen 600 MG TABLET PO (05:10)
[2023-12-08] MEDS: Acetaminophen 325 MG TABLET 975 MG PO (05:10)
[2023-12-08 06:00] VITALS: BP 118/88; PULSE 70; RESP 18; O2SAT 97
== END 2023-12-08 06:41 | disposition home or self-care (01) ==
PROVIDERS: Emergency Provider Emergency Medicine; PCP Internal Medicine
DX: R07.89 Other chest pain (principal); R06.02 Shortness of breath; Z11.52 Encounter for screening for COVID-19; I48.0 Paroxysmal atrial fibrillation; Z79.899 Other long term (current) drug therapy
CPT/HCPCS: 36415; 71046; 80048; 80076; 83690; 84484; 85025; 87502; 87635; 93005; 99284; 99285

== ENCOUNTER → 2023-12-08 02:24 | Outpatient (BNV) | payer OTHER, SELFPAY | PROVIDERS: Emergency Provider Emergency Medicine; PCP Internal Medicine; Visit Provider Internal Medicine | DX: R07.9 Chest pain, unspecified (principal) | CPT/HCPCS: 93010 ==

== ENCOUNTER 2024-02-04 14:10 | Outpatient (REF) | payer OTHER, SELFPAY ==
--- NOTE | ~2024-02-04 | XR_ITS ---
EXAMINATION: XR LUMBOSACRAL SPINE WITH OBLIQUES CLINICAL INFORMATION: Radiculopathy COMPARISON: Previous lumbar spine x-ray March 2023 TECHNIQUE: AP, lateral and bilateral oblique views of the lumbar spine FINDINGS: There is minimal 2 mm retrolisthesis of L3 with respect to L4. Bone alignment is otherwise normal.. No fracture or dislocation. No instability on flexion and extension views. Degenerative spondylosis and disc space narrowing at L3-L4 and L4-L5. Lower lumbar spine facet arthritis. XR/XR lumbar spine 4V min IMPRESSION: Minimal 2 mm retrolisthesis of L3 with respect to L4 and degenerative changes of the lower lumbar spine.
== END 2024-02-04 14:11 | disposition home or self-care (01) ==
LOC: HO.HOSX 14:10
PROVIDERS: PCP Internal Medicine; Visit Provider Physician Assistant
DX: M54.16 Radiculopathy, lumbar region (principal)
CPT/HCPCS: 72110; 99202

== ENCOUNTER 2024-02-04 14:10 | Outpatient (AMB) | payer OTHER, SELFPAY ==
--- NOTE | 2024-02-04 14:17 | HO.SPINEOV ---
Intake Intake Visit Reasons: Radiculopathy, lumbar region Intake Note: Mr. Palencia is here today c/o Low back pain. 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 He is a pleasant 48-year-old male who comes in today with a chief complaint of low back pain with radiation into his right lower extremity. He states that his low back pain has been persistent for many years, however worsened after trip to [place] last December. He states after the plane flight he was getting into his car and felt a sharp pain in his low back and began to experience shooting pains into his right lower extremity. He reports associated symptoms of numbness/burning in his right lower extremity. When describing the radiculopathy he traces his hand over the top and bottom of his right thigh and states that the pain extends all the way down the back of his leg to his posterior calf. He reports that sitting, bending, and lifting exacerbate his pain, and that standing and lying flat help to alleviate his pain. He is currently taking oxycodone and a muscle relaxer in order to mitigate his symptoms. He has been trying an at home exercise/stretching regimen with only minimal relief. He has had injections at [facility], the last of which was 9 months ago and was not very helpful for him. Unfortunately, he is now to the point where the pain is affecting his ability to work, and causing a great deal of distress throughout the day. PMH: L3-[address] Linda 10-15 years ago. Asthma, anxiety, obstructive sleep apnea, high blood pressure. Social hx: Patient does not smoke, reports no substance use. Medications: Albuterol, Xanax, CPAP machine, cyclobenzaprine, ibuprofen, metoprolol, oxycodone. Allergies: Seafood, tramadol. Physical exam: The patient has 4/5 strength with hip extension and knee flexion on the right, the rest of his strength is 5/5. His reflexes are 2+ intact. His sensation is grossly intact. He ambulates with a slightly antalgic gait favoring the left side. He is able to rise from seated position by bracing himself on the chair in our exam room. (+) straight leg raise bilaterally, worse on the right. (-) Zuluaga's, (-) clonus. Imaging review: MRI imaging completed in 2020 is of very low utility as this patient's symptoms significantly worsened in December of last year. X-ray imaging completed during this visit shows severe degenerative changes at L3-4 and L4-5. There is also diffuse spondylosis of the lumbar spine. No significant movement on flexion/extension. Impression: Jeanette is a pleasant 48-year-old male who comes in today with a chief complaint of low back pain with radiation to his right lower extremity. He identifies an inciting incident as a long plane ride to [facility] in December of last year. His history and physical exam are most consistent with an acute disc herniation in the lumbar spine. Unfortunately, x-ray imaging obtained during this visit is a very low utility to identify disc herniation. It is my recommendation that he have an MRI of the lumbar spine to evaluate for any acute nerve root impingement in the lumbar spine that could be causing both his radicular pain and paresthesias. We will follow up with the patient after he has completed his lumbar MRI. Thank you for allowing us to care for your patient. The total time spent with this visit with this patient was 45 minutes reviewing history, physical exam, X-ray imaging review, and implementation of treatment plan or further diagnostic testing Enrique Nunn MD,PhD [facility] Orders: Orders XR lumbar spine 4V min Today M54.16 - Radiculopathy, lumbar region Coding Level of Care Code New Pt Level 4 (08402) Diagnoses Lumbar radiculopathy M54.16
== END 2024-02-04 15:09 | disposition home or self-care (01) ==
PROVIDERS: PCP Internal Medicine; Referring Provider Internal Medicine; Visit Provider Physician Assistant
DX: M54.16 Radiculopathy, lumbar region (principal)
CPT/HCPCS: 99204

== ENCOUNTER 2024-03-13 14:34 | Outpatient (AMB) | payer OTHER, SELFPAY ==
[2024-03-13 14:44] VITALS: BP 120/70; PULSE 75; O2SAT 96; BMI 31.9
--- NOTE | 2024-03-13 14:44 | A.OFFVIS_ITS ---
Vital Signs 03/13/24 14:44 Height 5 ft 9 in Weight 216 lb 0.848 oz BMI 31.9 BP 120/70 Blood Pressure Location Lt brachial Position Sitting Pulse 75 Pulse Source Pulse Oximeter Pulse Oximetry (%) 96 Intake Visit Reasons: 4 mth f/up Clinical Nurse Leader Required: Yes Clinical Nurse Leader Name: Amanda/partner Accompanied by: Spouse Allergies seafood Allergy (Unknown, Verified 11/30/23 08:35) Anaphylaxis tramadol Adverse Reaction (Intermediate, Verified 11/30/23 08:35) constipation and dysuria Medication List - Last Reconciled 03/13/24 by Carl Villanueva MD albuterol sulfate 90 mcg/actuation 2 puffs inhalation QID PRN [CPAP 8 cm H20 humidified air AIRFIT N20 Small NAsal MAsk As directed heated humidifier and all supplies ] cyclobenzaprine 10 mg PO Q8H ibuprofen 600 mg PO QID PRN metoprolol succinate ER (Toprol XL) 25 mg PO DAILY oxycodone 5 mg PO Q6H PRN HPI Comments Details: Pleasant 48 gentleman who has paroxysmal atrial fibrillation. He went to the emergency department on August 13 with palpitations and was noticed to be in atrial fibrillation with rapid ventricular response. He was given Cardizem as well as metoprolol but he continued to be in uncontrolled atrial fibrillation. At this stage he was seen by Cardiology and was given flecainide 300 mg which cardioverted him to sinus rhythm. Since then he has been doing well. He did not have any recent episode of than this episode on 08/13/2022. He was started on metoprolol succinate 25 mg and sent home. He has been taking that regularly. There is some concern about snoring at night and sleep apnea and he has never had sleep study in the past. Fahad [id number]: He returns for follow-up. He has been doing well. On last visit we discussed about stopping all caffeinated drinks and he has not been using them. He has not had any further episode of atrial fibrillation. He is currently recovering from bronchitis and viral illness and is currently taking albuterol inhaler and azithromycin. He used then he lived before coming and is currently tachycardic with sinus tachycardia and 120s. He also has not been using the metoprolol succinate for close to a month because he ran out. He has not use flecainide as pill in the pocket approach since we prescribed it. He has been diagnosed with sleep apnea and is in the process of getting appointment with sleep Medicine. 03/13/24: He returns for follow-up. He has been doing well. No palpitations. He is saying that he has been exercising and trying to diet. He has lost some weight also. He got diagnosed with sleep apnea and is in the process of getting the CPAP mask. He is denying any issues currently and in particular no palpitations and is stable from AFib point of view. [facility] Medical History Sleep disorder breathing Afib Allergic reaction Obesity (BMI 30-39.9) Herniated lumbar intervertebral disc Lower back pain Low back strain Allergic conjunctivitis History of rib fracture Hyperglyceridemia Chronic radicular low back pain Surgical History History of discectomy Family History Father No problems noted. Mother No problems noted. Social History Housing: Apartment Alcohol intake: former Patient Tobacco Use Status: Never used Tobacco Tobacco use type: Cigarette e-Cigarette/Vaping Use: Never Used Second Hand Smoke Exposure: Yes service: No Current occupational status: employed Current occupational exposures/hazards: No Cognitive needs: No Hearing needs: No Vision needs: No Review of Systems Const Denies chills, Denies fatigue, Denies fever(s), Denies frequent falls, Denies weakness, Denies weight gain and Denies weight loss ENT Denies dizziness Card Denies chest pain, Denies leg edema, Denies lightheadedness, Denies palpitations, Denies dyspnea and Denies dyspnea on exertion Resp Denies cough, Denies dyspnea and Denies dyspnea on exertion GI Denies hematochezia Musc Denies abnormal gait, Denies muscle weakness, Denies numbness, Denies radiating pain into limb and Denies tingling Neuro Denies abnormal gait, Denies dizziness, Denies frequent falls, Denies numbness, Denies tingling and Denies weakness Endo Denies fatigue and Denies palpitations Physical Exam Vital Signs: Last Vital Signs Pulse 75 03/13/24 14:44 BP 120/70 03/13/24 14:44 Pulse Ox 96 03/13/24 14:44 BMI result Body Mass Index 31.9 GENERAL APPEARANCE: in no acute distress, pleasant. NECK: no carotid bruit, no jugular venous distention. SKIN: no suspicious lesions, warm and dry. HEART: no murmurs, regular rate and rhythm. LUNGS: clear to auscultation bilaterally. ABDOMEN: soft, nontender. EXTREMITIES: no edema. PERIPHERAL PULSES: equal. NEUROLOGIC: No gross deficits, AAO X 3 Assessment & Plan Assessment & Plan (1) Paroxysmal atrial fibrillation: Comment: In sinus rhythm at this point. Asymptomatic. Low chads Vasc score. Code(s): I48.0 - Paroxysmal atrial fibrillation Category: Medical Plan Pleasant 48 year gentleman who is here for follow-up. He has background history of paroxysmal atrial fibrillation in the setting of caffeine use. He has not had any further episodes. He also has been diagnosed with sleep apnea and is in the process of seeing sleep Medicine to arrange CPAP mask. He is exercising and is losing weigt. Doing well on metoprolol. f/u in few months. Thank you for allowing me to participate in the care of your patient. Please feel free to contact me if you have any questions. Coding Level of Care Code Est Pt Level 4 (17245) Diagnoses Paroxysmal atrial fibrillation I48.0
== END 2024-03-13 15:06 | disposition home or self-care (01) ==
PROVIDERS: PCP Internal Medicine; Visit Provider Internal Medicine Cardiovascular Disease
DX: I48.0 Paroxysmal atrial fibrillation (principal)
CPT/HCPCS: 99214

== ENCOUNTER → 2024-03-13 14:34 | Outpatient (BNVA) | payer OTHER, SELFPAY | PROVIDERS: PCP Internal Medicine; Visit Provider Internal Medicine Cardiovascular Disease | DX: I48.0 Paroxysmal atrial fibrillation (principal) | CPT/HCPCS: 99212 ==

== ENCOUNTER 2024-03-28 08:49 | Outpatient (AMB) | payer OTHER, SELFPAY ==
--- NOTE | 2024-03-28 09:02 | MHC.PC.OV ---
Vital Signs 03/28/24 09:03 Height 5 ft 9 in Weight 207 lb 6 oz BMI 30.6 BP 100/70 Blood Pressure Location Lt brachial Position Sitting Pulse 71 Pulse Source Pulse Oximeter Pulse Oximetry (%) 96 Oxygen Delivery Method Room Air Intake Visit Reasons: 4 month f/u Intake Note: Patient is here to follow up on Asthma, Lower back pain, PAfib. Owner Consulting Engineer Required: Yes Owner Consulting Engineer Language: Catheterization Laboratory Technician Name: Amanda (Spouse) International Account Manager: Present Accompanied by: Significant Other Allergies seafood Allergy (Unknown, Verified 03/28/24 09:03) Anaphylaxis tramadol Adverse Reaction (Intermediate, Verified 03/28/24 09:03) constipation and dysuria Tobacco use date assessed: 03/28/24 Dental Screening Dental Screen Date: 11/30/23 HPI 4 month f/u HPI Details 48-year-old obese male(noted 9 lb weight loss) with severe obstructive sleep apnea atrial fibrillation (caffeine use?) asthma chronic radicular low back pain and recently had some lung density on x-ray advised to get a CT scan. Patient comes in for follow-up. Patient did see Cardiology earlier this month patient did have a cardioversion 2021. Patient has also followed up with the neurosurgeon advised to have an MRI [facility] Medical History Sleep disorder breathing Afib Allergic reaction Obesity (BMI 30-39.9) Herniated lumbar intervertebral disc Lower back pain Low back strain Allergic conjunctivitis History of rib fracture Hyperglyceridemia Chronic radicular low back pain Surgical History History of discectomy Family History Father No problems noted. Mother No problems noted. Social History Housing: Apartment Alcohol intake: former Patient Tobacco Use Status: Never used Tobacco Tobacco use type: Cigarette e-Cigarette/Vaping Use: Never Used Second Hand Smoke Exposure: Yes service: No Current occupational status: employed Current occupational exposures/hazards: No Cognitive needs: No Hearing needs: No Vision needs: No Questionnaire Thrive Questionnaire Date Thrive assessed: 11/30/23 NEVA-7 AMB Questionnaire NEVA-7 Date NEVA - 7 assessed: 11/30/23 Source: Developed by Drs. Raman Mejia, Zahra Norman, Sandeep Ham and colleagues, with an educational tosha from [employer]. Physical exam (Primary Care) Vital Signs: Last Vital Signs Pulse 71 03/28/24 09:03 BP 100/70 03/28/24 09:03 Pulse Ox 96 03/28/24 09:03 Oxygen Delivery Method Room Air 03/28/24 09:03 BMI result Body Mass Index 30.6 Tobacco/Smoking Status: Tobacco use Status Tobacco use date assessed 03/28/24 03/28/24 09:09 Patient Tobacco Use Status Never used Tobacco 03/28/24 09:02 Tobacco use type Cigarette 03/28/24 09:02 e-Cigarette/Vaping Use Never Used 03/28/24 09:02 Thrive Assessment: Date of Thrive Assessment Date Thrive assessed 11/30/23 03/28/24 09:02 Const General: alert; No acute distress Eyes Conjunctivae: conjunctivae normal Resp Auscultation: clear to auscultation bilaterally Cardio Rate: regular rate Rhythm: regular rhythm GI Inspection: Yes normal to inspection Extrem General: Yes normal to inspection and No edema Assessment and Plan Assessment & Plan (1) Lung density on x-ray: Comment: December 2015, November 2020, November 2023 Code(s): J98.4 - Other disorders of lung Plan: Continuing to monitor (2) Chronic radicular low back pain: Comment: Herniated disc January 2007 Dr. Leroy; L4-5 diskectomy December 2007, MRI December 2020 progression Code(s): M54.16 - Radiculopathy, lumbar region; G89.29 - Other chronic pain Plan: Patient has seen the neurosurgeon and the planned MRI. PSS will plan on injection this thus (3) Severe obstructive sleep apnea: Comment: 47-year-old male that I have not seen for long time had a sleep study 01/10/2023 severe degree of sleep apnea AHI of 44 per hour need ear of 88% patient was on 47-year-old male that I have not seen for long time had a sleep study 01/10/2023 severe degree of sleep apnea AHI of 44 per hour need ear of 88% patient was trialed on CPAP 8 cm water with AirFit N and 20 small nasal mask. Code(s): G47.33 - Obstructive sleep apnea (adult) (pediatric) Plan: Discussion about using the CPAP for obstructive sleep apnea. will be seeing Sleep management july, (4) Obesity (BMI 30-39.9): Code(s): E66.9 - Obesity, unspecified Plan: Continue with diet and exercise (5) Paroxysmal atrial fibrillation: Comment: In sinus rhythm at this point. Asymptomatic. Low chads Vasc score. Code(s): I48.0 - Paroxysmal atrial fibrillation Plan: Continue to follow up with Cardiology presently on metoprolol 25 mg once a day Coding Level of Care Code Est Pt Level 4 (17655) Diagnoses Lung density on x-ray J98.4 Chronic radicular low back pain M54.16; G89.29 Severe obstructive sleep apnea G47.33 Obesity (BMI 30-39.9) E66.9 Paroxysmal atrial fibrillation I48.0
[2024-03-28 09:03] VITALS: BP 100/70; PULSE 71; O2SAT 96; BMI 30.6
== END 2024-03-28 09:48 | disposition home or self-care (01) ==
PROVIDERS: PCP Internal Medicine; Visit Provider Internal Medicine
DX: J98.4 Other disorders of lung (principal); M54.16 Radiculopathy, lumbar region; G89.29 Other chronic pain; G47.33 Obstructive sleep apnea (adult) (pediatric); E66.9 Obesity, unspecified; I48.0 Paroxysmal atrial fibrillation
CPT/HCPCS: 99214

== ENCOUNTER 2024-05-05 11:12 | Emergency (ER) | payer OTHER, SELFPAY ==
[2024-05-05 11:16] VITALS: BP 103/70; PULSE 71; RESP 16; TEMP 36.3; O2SAT 96; BMI 30.1
[2024-05-05 11:47] LABS: MANUAL DIFF FLAG NO
--- NOTE | 2024-05-05 11:49 | PC.NURSE ---
labs drawn by triage
[2024-05-05 11:51] LABS: Basophils Percent Auto 0.5 % (0-2); Eosinophils Absolute Auto 0.2 X10*3/uL (0.0-0.4); Eosinophils Percent Auto 3.1 % (0-4); Hematocrit 39.4 % (42.0-52.0); Hemoglobin 14.7 g/dl (14.0-18.0); Imm Gran Abs Auto 0.01 X10*3/uL (0.00-0.03); Imm Gran Pct Auto 0.2 % (0.0-0.4); Lymphocytes Absolute Auto 1.4 X10*3/uL (1.2-4.9); Lymphocytes Percent Auto 22.9 % (20-40); Mean Corpuscular HGB Conc 37.3 g/dl (31.0-36.0); Mean Corpuscular Hemoglobin 30.9 pg (27.0-33.0); Mean Corpuscular Volume 82.9 fL (80.0-98.0); Mean Platelet Volume 8.3 fL (9.4-12.4); Monocytes Absolute Auto 0.7 X10*3/uL (0.1-1.2); Monocytes Percent Auto 11.1 % (2-11); Neutrophils Absolute Auto 3.8 x10*3/uL (2.0-8.3); Neutrophils Percent Auto 62.2 % (45-73); Platelet Count 234 X10*3/uL (160-400); Red Blood Count 4.75 X10*6/uL (4.60-5.80); Red Cell Distribution Width 12.5 % (11.0-16.0); White Blood Count 6.1 X10*3/uL (4.8-10.8)
[2024-05-05 12:00] VITALS: BP 104/69; PULSE 56; RESP 19; TEMP 36.2; O2SAT 97
[2024-05-05 12:03] LABS: Alanine Aminotransferase 24 U/L (0-40); Albumin Level 4.2 g/dL (3.5-5.0); Alkaline Phosphatase 68 U/L (39-117); Anion Gap 10 (12-20); Aspartate Amino Transferase 17 U/L (5-37); Bilirubin Total 0.7 mg/dL (0.0-1.0); Blood Urea Nitrogen 13 mg/dL (9-16); Calcium 9.1 mg/dL (8.4-10.2); Carbon Dioxide 25 mmol/L (22-29); Chloride 108 mmol/L (96-108); Creatinine Clr Calc Pharmacy 132.9; Estimated Glomerular Filt Rate > 60; Glucose Random 105 mg/dL (60-115); Potassium 3.8 mmol/L (3.3-5.1); Sodium 139 mmol/L (135-145); Total Protein 6.6 g/dL (6.5-8.0)
[2024-05-05 12:26] LABS: HBS Num1 1.99 mIU/mL (0-7.99); HBc Num1 0.09 S/CO (0.00-0.79); HBsAGNum1 0.35 S/CO (0.00-0.99); HIV AB/AG Nonreactive (Nonreactive); HIV Num 1 0.05 S/CO (0.00-0.99); Hepatitis B Core Antibody Nonreactive (Nonreactive); Hepatitis B Surface Antigen Negative (Negative); ~HepC Num1 0.06 S/CO (0.00-0.79); ~Hepatitis A Antibody IgM Nonreactive (Nonreactive); ~Hepatitis B Surface Antibody NONREACTIVE (Nonreactive); ~Hepatitis C Antibody Nonreactive (Nonreactive)
--- NOTE | 2024-05-05 12:42 | ED_ITS ---
HPI - General Adult General Chief complaint: General Medical Stated complaint: Stuck w/ needle @ work Time Seen by Provider: 05/05/24 12:04 Source: patient Mode of arrival: ambulatory Limitations: no limitations History of Present Illness ED Provider: Darian Anaya PA-C HPI narrative: 48-year-old male with past medical history of asthma, AFib, chronic low back pain, obstructive sleep apnea presents to the ED for needlestick to right palm. 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 Patient does not know if that was a clean needle or needle that was used. Patient states not able to track down occupants of apartment who are known drug addicts case they were kicked out. Patient states washed hand immediately. Related Data Previous Rx's ?Medication ?Instructions ?Recorded CPAP 8 cm H20 humidified air #1 ea 07/14/23 AIRFIT N20 Small NAsal MAsk metoprolol succinate 25 mg 25 mg PO DAILY #90 tabs 11/17/23 tablet,extended release 24 hr (Toprol XL) ibuprofen 600 mg tablet 600 mg PO QID PRN pain #14 tabs 12/08/23 oxycodone 5 mg tablet 5 mg PO Q6H PRN pain #20 tabs 01/24/24 albuterol sulfate 90 mcg/actuation 2 puff inhalation QID PRN 02/23/24 aerosol inhaler shortness of breath or wheezing #8.5 grams Allergies Allergy/AdvReac Type Severity Reaction Status Date / Time seafood Allergy Unknown Anaphylaxis Verified 05/05/24 11:24 tramadol AdvReac Intermediate constipation Verified 05/05/24 11:24 and dysuria Review of Systems 2 Review of Systems: needlestick Yes all other systems are reviewed and are negative PMFSH Past Medical History Medical History Sleep disorder breathing Afib Allergic reaction Obesity (BMI 30-39.9) Herniated lumbar intervertebral disc Lower back pain Low back strain Allergic conjunctivitis History of rib fracture Hyperglyceridemia Chronic radicular low back pain Surgical History History of discectomy Family History Family History Father No problems noted. Mother No problems noted. Social History Social History Housing: Apartment Alcohol intake: former Patient Tobacco Use Status: Never used Tobacco Tobacco use type: Cigarette e-Cigarette/Vaping Use: Never Used Second Hand Smoke Exposure: Yes Advance Directives: No Do you have a plan to hurt others: No Plan service: No Current occupational status: employed Current occupational exposures/hazards: No Cognitive needs: No Hearing needs: No Vision needs: No Physical Exam ED Vital Signs: Vital Signs - 24 hr 05/05/24 11:16 05/05/24 12:00 Temperature 97.4 F 97.1 F Pulse Rate 71 56 Respiratory Rate 16 19 Blood Pressure 103/70 104/69 Pulse Oximetry 96 97 Oxygen Delivery Method Room Air Room Air BMI result Body Mass Index 30.1 Const General: cooperative, healthy appearing, comfortable, no acute distress, well developed, alert and Physically active Orientation/consciousness: oriented to person, oriented to place, oriented to time and patient oriented x3 HENMT Head: Yes normal to inspection, Yes No palpable skull fracture present, Yes normocephalic, Yes atraumatic and No abrasion Eyes General: appearance normal, both eyes and all related structures Neck Neck: Yes normal visual inspection, Yes full ROM, Yes no lymphadenopathy, Yes no meningeal signs, Yes trachea midline, Yes supple, No anterior neck swelling and No tender Chest Chest palpation & inspection: normal inspection of the chest and normal palpation of entire chest wall Resp Effort & Inspection: normal respiratory effort and able to speak in complete sentences Auscultation: clear to auscultation bilaterally Cardio Jugular venous distension: no JVD Heart sounds: S1 normal heart sound present and S2 normal heart sound present GI Inspection: Yes normal to inspection Palpation (GI): Soft to palpation, not firm, nontender, no guarding and not rigid General: No CVA tenderness and Yes no CVA tenderness Back/Spine/Pelvis Back: no CVA tenderness, No CVA tenderness and No back tenderness Skin General skin exam: no rashes or lesions noted, elasticity normal and turgor normal Neuro General: oriented to person, oriented to place, oriented to time, patient oriented x3, gait normal, tone normal, moves all extremities, Normal light touch and pain sensation, no meningeal signs, no focal motor deficits, CN's II-XI intact bilaterally and normal sensation to monofilament Extrem General: Yes normal to inspection, Yes full ROM and Yes capillary refill normal Hand/finger images: 2 1. small area of needle stick. break in skin. bleeding is controlled. No obvious deformity. Psych Appearance: grossly normal, well kempt and not disheveled Medications Administered Discontinued Medications Generic Name Dose Route Start Last Admin Trade Name Freq PRN Reason Stop Dose Admin Diphtheria/Tetanus/Acell Pertussis 0.5 ml 05/05/24 13:50 05/05/24 13:55 Diphth,Pertus(Acell),Tet Adult 0.5 Ml Syringe IM 05/05/24 13:51 0.5 ml .ONCE ONE Administration Raltegravir/Emtricitabine/Tenofovir 1 kit 05/05/24 13:19 05/05/24 13:55 Post Exposure Medication Kit PO 05/05/24 13:20 1 kit ONCE ONE Administration Medical Decision Making Medical Decision Making MDM Narrative: 48 yold male presents to the ED for needle stick. patient was stuck by a needle not belong to known drug addicts could not be found. Patient does not know their medical history. Patient prefers to start HIV prophylaxis and will follow-up with [facility]. Initial labs are normal. Patient will be ordered Tdap. 1:50pm: Labs are normal. Patient will follow-up [facility] and Dr. Maciel. Patient informed importance to follow-up with those two for continuation of HIV prophylaxis if needed. patient given HIV prophylaxis KIT. Patient's explained he will need one-month prescription from [facility] or Dr. Maciel work if he agrees or necessary recommended by both were l[facility] and Dr. Maciel. Patient explained worrisome signs informed to follow up primary care provider Differential Diagnosis Differential Diagnoses: The differential diagnosis associated with the presentation includes Admission/Observation Consideration of admission/observation: Escalation of care including admission/observation considered Lab Data [facility] Lab Attestation statement: I reviewed the patient's lab results. 05/05/24 11:45 05/05/24 11:45 Labs: Lab Results 05/05/24 Range/Units 11:45 WBC 6.1 (4.8-10.8) X10*3/uL RBC 4.75 (4.60-5.80) X10*6/uL Hgb 14.7 (14.0-18.0) g/dl Hct 39.4 L (42.0-52.0) % MCV 82.9 (80.0-98.0) fL MCH 30.9 (27.0-33.0) pg MCHC 37.3 H (31.0-36.0) g/dl RDW 12.5 (11.0-16.0) % Plt Count 234 (160-400) X10*3/uL MPV 8.3 L (9.4-12.4) fL Immature Gran % (Auto) 0.2 (0.0-0.4) % Neut % (Auto) 62.2 (45-73) % Lymph % (Auto) 22.9 (20-40) % Morrison % (Auto) 11.1 H (2-11) % Eos % (Auto) 3.1 (0-4) % Baso % (Auto) 0.5 (0-2) % Lymph # (Auto) 1.4 (1.2-4.9) X10*3/uL Morrison # (Auto) 0.7 (0.1-1.2) X10*3/uL Eos # (Auto) 0.2 (0.0-0.4) X10*3/uL Baso # (Auto) 0.0 (0.0-0.2) X10*3/uL Abs Immat Gran (auto) 0.01 (0.00-0.03) X10*3/uL Absolute Neuts (auto) 3.8 (2.0-8.3) x10*3/uL Absolute Nucleated RBC 0.000 (0.0-0.012) X10*3/uL Nucleated RBC % (auto) 0.0 (0.0-0.2) /100WBC Sodium 139 (135-145) mmol/L Potassium 3.8 (3.3-5.1) mmol/L Chloride 108 (96-108) mmol/L Carbon Dioxide 25 (22-29) mmol/L Anion Gap 10 L (12-20) BUN 13 (9-16) mg/dL Creatinine 0.78 (0.5-1.4) mg/dL Estim Creat Clear Calc 132.9 Estimated GFR > 60 Random Glucose 105 (60-115) mg/dL Calcium 9.1 (8.4-10.2) mg/dL Total Bilirubin 0.7 (0.0-1.0) mg/dL AST 17 (5-37) U/L ALT 24 (0-40) U/L Alkaline Phosphatase 68 (39-117) U/L Total Protein 6.6 (6.5-8.0) g/dL Albumin 4.2 (3.5-5.0) g/dL Lipase 14 (8-78) U/L Hepatitis A IgM Ab Nonreactive (Nonreactive) Hep Bs Antigen Negative (Negative) Hep Bs Antibody NONREACTIVE (Nonreactive) Hep B Core Total Ab Nonreactive (Nonreactive) Hepatitis C Ab (EIA) Nonreactive (Nonreactive) HIV 1&2 Ab/P24 Ag 4thGn Nonreactive (Nonreactive) Independent Historian Clinical information obtained from an independent historian. History obtained from or confirmed by: Other (Prior visit) External Record Review External record reviewed: Other (patient ) Prescription Management I considered prescription management with: Other (HIV prophylaxis PO KIT) Discharge Plan Discharge Clinical Impression: Exposure to body fluids by contaminated hypodermic needle stick Patient Disposition: Home, Self-Care Instructions: Needle Stick Injuries (ED), Body Substance Exposure (ED) Additional Instructions: you need to follow-up with [facility] on Wednesday for re-evaluation and for further discussion of continuing prophylaxis medication and prescription for 1 month. also they will discuss scheduling retesting possibly in 3 months, 6 months, and 9 months. Return to the ED immediately for any fever, chills, redness, pus discharge, foul odor, or any other concerning symptoms. recommend getting individuals that you were exposed to tested if possible. Prescriptions: No Action (DME) CPAP 8 cm H20 humidified air AIRFIT N20 Small NAsal MAsk See Rx Instructions .Route .MEDSUPPLY Qty: 1 0RF Rx Instructions: As directed heated humidifier and all supplies oxycodone 5 mg tablet 5 mg PO Q6H PRN (Reason: pain) Qty: 20 0RF Rx Instructions: Partial Fill upon patient request. albuterol sulfate 90 mcg/actuation HFA aerosol inhaler 2 puff inhalation QID PRN (Reason: shortness of breath or wheezing) Qty: 8.5 0RF ibuprofen 600 mg tablet 600 mg PO QID PRN (Reason: pain) Qty: 14 0RF metoprolol succinate [Toprol XL] 25 mg tablet extended release 24 hr 25 mg PO DAILY Qty: 90 4RF Referrals: [facility] [Outside] ( Needlestick exposure. needs follow-up on labs. May need 1 month supply of HIV prophylaxis. meds. may need hepatitis vaccine prophylaxis.) KVNG MACIEL MD [Physician] - ( Needlestick. Body Fluids substance exposure.) Stand Alone Forms: Work/School Release Interventions: ED Discharge Assessment Last Done: 05/05/24 14:08 Discharge Date/Time: 05/05/24 14:09 Print Language: Bhutanese
[2024-05-05 13:55] LABS: Lipase 14 U/L (8-78)
[2024-05-05] MEDS: Post Exposure Medication Kit 1 KIT PO (13:55)
[2024-05-05] MEDS: Diphth,Pertus(ACell),Tet Adult 0.5 ML SYRINGE IM (13:55)
--- NOTE | 2024-05-05 13:59 | PC.NURSE ---
pt medcated per orders
[2024-05-05 14:08] VITALS: BP 108/72; PULSE 68; RESP 18; TEMP 36.3; O2SAT 98
== END 2024-05-05 14:09 | disposition home or self-care (01) ==
PROVIDERS: Physician Assistant; Emergency Provider Emergency Medicine Emergency Medical Services
DX: Z77.21 Contact with and (suspected) exposure to potentially hazardous body fluids (principal); S61.431A Puncture wound without foreign body of right hand, initial encounter; W26.8XXA Contact with other sharp object(s), not elsewhere classified, initial encounter; Y93.E9 Activity, other interior property and clothing maintenance; Y92.009 Unspecified place in unspecified non-institutional (private) residence as the place of occurrence of the external cause; Y99.0 Civilian activity done for income or pay; Z23 Encounter for immunization
CPT/HCPCS: 36415; 80053; 83690; 85025; 86704; 86706; 86709; 86803; 87340; 87389; 90471; 90715; 99283; 99284

== ENCOUNTER → 2024-05-08 08:49 | Outpatient (BNVA) | payer SELFPAY | PROVIDERS: Visit Provider Physician Assistant Medical | DX: Z77.21 Contact with and (suspected) exposure to potentially hazardous body fluids (principal) | CPT/HCPCS: 99203 ==

== ENCOUNTER → 2024-05-18 08:54 | Outpatient (BNVA) | payer OTHER, SELFPAY | PROVIDERS: PCP Internal Medicine; Visit Provider Physician Assistant Medical | DX: Z77.21 Contact with and (suspected) exposure to potentially hazardous body fluids (principal) | CPT/HCPCS: 82150; 82565; 84450; 84460; 85025; 99214 ==

== ENCOUNTER 2024-06-01 07:25 | Outpatient (REF) | payer OTHER, SELFPAY ==
--- NOTE | ~2024-06-01 | MR_ITS ---
MRI OF THE LUMBAR SPINE WITHOUT CONTRAST CLINICAL INFORMATION: Lumbar region radiculopathy. COMPARISON: Lumbar spine MRI January 13, 2021. TECHNIQUE: Multiplanar multisequence MR imaging of the lumbar spine obtained without contrast. FINDINGS: There are 5 non-rib bearing lumbar type vertebral bodies. Lumbar alignment is maintained. Vertebral body heights are preserved. There are chronic endplate Schmorl's nodes at the L1-L4 levels. Modic type I endplate signal changes at L1-L2, L3-L4, and L4-L5. There is no additional bone marrow edema. There are multilevel endplate osteophytes. There is moderate disc volume loss at L3-L4 and L4-L5. There is disc desiccation at all lumbar levels with the exception of L5-S1. Conus terminates at the L1 level. There are no significant extraspinal soft tissue findings. There is a thickened fatty filum terminale. T12-L1: A shallow disc protrusion minimally indents the ventral thecal sac. There is no foraminal stenosis. L1-L2: There is a diffuse annular disc bulge exhibiting a dorsal annular fissure that mildly narrows the central canal which is markedly improved. Previously seen central disc extrusion has resorbed. Disc and bilateral arthropathy results in mild bilateral foraminal encroachment. L2-L3: There is a diffuse annular disc bulge and there is bilateral facet arthropathy and ligamentum flavum thickening. Findings in concert result in mild central canal stenosis and mild bilateral foraminal encroachment. L3-L4: Diffuse annular disc bulge with a superimposed shallow right paracentral disc protrusion that results in similar posterior deflection of the traversing right L4 nerve root within the right subarticular zone and similar mild central canal stenosis. Disc osteophyte and advanced facet arthropathy results in worsening moderate to severe left foraminal stenosis with mass effect on the exiting left L3 nerve root. L4-L5: Diffuse annular disc bulge and severe bilateral facet arthropathy and ligamentum flavum thickening. Improved epidural lipomatosis. Findings in concert result in improved now mild narrowing of the central canal, improved though persistent left greater than right subarticular zone stenosis with persistent mass effect on the traversing left L5 nerve root, and worsening moderate to severe left foraminal stenosis with mass effect on the exiting left L4 nerve root. L5-S1: Diffuse annular disc bulge and bilateral facet arthropathy. No central canal stenosis and no foraminal stenosis. MR/MR lumbar spine wo con IMPRESSION: * At L4-L5, there is improved epidural lipomatosis with improved now mild narrowing of the central canal. There is persistent left greater than right subarticular zone stenosis with persistent mass effect on the traversing left L5 nerve root, and worsening moderate to severe left foraminal stenosis with mass effect on the exiting left L4 nerve root. * At L3-L4, progressive multifactorial degenerative changes result in worsening moderate to severe left foraminal stenosis with mass effect on the exiting left L3 nerve root. A shallow right paracentral disc protrusion continues to result in posterior deflection of the traversing right L4 nerve root within the right subarticular zone. * At L2-L3, spondylitic changes result in similar mild central canal stenosis and mild bilateral foraminal encroachment. * At L1-L2, the previously seen disc extrusion has resorbed and there is significantly improved now mild narrowing of the central canal. Stable mild bilateral foraminal encroachment at this level. * Thickened fatty filum terminale. Normally positioned conus. Electronically signed by: Naveen Topete MD 06/29/2024 07:48 AM EDT
== END 2024-06-01 07:26 | disposition home or self-care (01) ==
LOC: HO.MRI 07:25
PROVIDERS: PCP Internal Medicine; Visit Provider Physician Assistant
DX: M54.16 Radiculopathy, lumbar region (principal)
CPT/HCPCS: 72148

== ENCOUNTER → 2024-06-05 08:53 | Outpatient (BNVA) | payer OTHER, SELFPAY | PROVIDERS: PCP Internal Medicine | DX: Z77.21 Contact with and (suspected) exposure to potentially hazardous body fluids (principal) | CPT/HCPCS: 82150; 82565; 84450; 84460; 85025; 99213 ==

== ENCOUNTER → 2024-06-16 12:03 | Outpatient (BNVA) | payer OTHER, SELFPAY | PROVIDERS: PCP Internal Medicine | DX: Z77.21 Contact with and (suspected) exposure to potentially hazardous body fluids (principal) | CPT/HCPCS: 84450; 84460; 85025; 87389; 99211 ==

== ENCOUNTER 2024-07-05 15:05 | Outpatient (AMB) | payer OTHER, SELFPAY ==
--- NOTE | 2024-07-05 15:08 | A.OFFVIS_ITS ---
Vital Signs 07/05/24 15:15 Height 5 ft 9 in Weight 203 lb BMI 30.0 Intake Visit Reasons: INP-Sleep apnea, unspecified Intake Note: patient presents for sleep apnea Allergies seafood Allergy (Unknown, Verified 07/05/24 15:15) Anaphylaxis tramadol Adverse Reaction (Intermediate, Verified 07/05/24 15:15) constipation and dysuria Medication List - Last Reconciled 07/05/24 by ROSANA Figueroa albuterol sulfate 90 mcg/actuation 2 puffs inhalation QID PRN [CPAP 8 cm H20 humidified air AIRFIT N20 Small NAsal MAsk As directed heated humidifier and all supplies ] emtricitabine-tenofovir (TDF) 200-300 mg 1 tab PO DAILY gabapentin 100 - 300 mg (1 - 3 x 100 mg) PO BEDTIME 30 days ibuprofen 600 mg PO QID PRN metoprolol succinate ER (Toprol XL) 25 mg PO DAILY ondansetron 4 mg PO Q8H PRN oxycodone 5 mg PO Q6H PRN raltegravir 400 mg PO BID HPI Comments Details: 49-yr-old male presents for new in-person patient visit for sleep consultation. Pt is accompanied by his girlfriend, Amanda. Patient reports he underwent in-lab PSG in December 2022 as he was having palpitations, snoring, gasping arousals and excessive daytime sleepiness. The in-lab PSG showed severe sleep apnea with frequent limb movements of sleep: AHI 44/hr, average SpO2 93% with O2 geeta 88 %, periodic limb movement of sleep index 88/hr, PLMS arousal index 7.7 per hour. Thus, sleep study was converted to a Pap titration study, which showed best response to CPAP at 8 cm H2O. Patient reports that his sleep apnea may have been so severe, as he weighed at least 20 lb more during the sleep study than he does now. Additionally he notes that he was taking oxycodone during the timing of this study, and that he was having a flare of low back pain, muscle spasms, which may have increased his limb movements during sleep. PCP did order follow-up lab work to further assess the limb movements of sleep, however these have not been done yet. Patient currently feels that he is snoring less. He feels his primary concern is that he has difficulty initiating sleep. And this is why he has continued daytime sleepiness. He did try a sleeping medication from his PCP, however states this was not helpful. His usual bedtime is around 01:00, and usually wakes up around 06:00. He avoids caffeine per cardiology's recommendations. When he is not having a lower back flare-up, he is physically active at work. He states that when he is having a flare-up of his low back symptoms, which he states is lumbar disc bulging associated with muscle spasms, resulting in either upper back or either right or left leg pain and muscle spasms and cramps. He is more restless at this time. He denies any current BLE numbness, tingling, weakness. Does note that he has to be careful not to pull out his lower back. He is followed by [facility] for his back pain. His palpitations have resolved with medication management per Cardiology. Patient's partner states that patient does continue to snore, and has frequent arousals after falling asleep. Patient does also endorse episodes of cough, shortness of breath congestion and wheezing. As well as acid reflux, especially if he eats later in the day. Pt did have a needle stick at work this May and was tx'd w/ a prophylactic course of antiviral tx- he is scheduled to have f/u testing through [facility]. [facility] Medical History Sleep disorder breathing Afib Allergic reaction Obesity (BMI 30-39.9) Herniated lumbar intervertebral disc Lower back pain Low back strain Allergic conjunctivitis History of rib fracture Hyperglyceridemia Chronic radicular low back pain Surgical History History of discectomy Family History Father No problems noted. Mother No problems noted. Social History Housing: Apartment Alcohol intake: former Patient Tobacco Use Status: Never used Tobacco Tobacco use type: Cigarette e-Cigarette/Vaping Use: Never Used Second Hand Smoke Exposure: Yes service: No Current occupational status: employed Current occupational exposures/hazards: No Cognitive needs: No Hearing needs: No Vision needs: No Physical Exam Vital Signs: BMI result Body Mass Index 30.0 Const General: no acute distress Orientation/consciousness: patient oriented x3 HEENT Other: Mallampati stage Resp Effort & Inspection: normal respiratory effort and able to speak in complete sentences Cardio Rate: regular rate Rhythm: regular rhythm Neuro General: patient oriented x3 Motor exam (neuro): 5/5 motor strength present throughout Deep tendon reflexes (DTR's): Right patellar reflex intensity grade: 2+ and Left patellar reflex intensity grade: 2+ Psych Mental Status: mental status grossly normal Speech and movement: Clear speech present Attitude: cooperative Assessment & Plan Assessment & Plan (1) Severe obstructive sleep apnea: Comment: 47-year-old male that I have not seen for long time had a sleep study 01/10/2023 severe degree of sleep apnea AHI of 44 per hour need ear of 88% patient was on 47-year-old male that I have not seen for long time had a sleep study 01/10/2023 severe degree of sleep apnea AHI of 44 per hour need ear of 88% patient was trialed on CPAP 8 cm water with AirFit N and 20 small nasal mask. Code(s): G47.33 - Obstructive sleep apnea (adult) (pediatric) Category: Medical (2) Sleep difficulties: Code(s): G47.9 - Sleep disorder, unspecified Category: Medical (3) Periodic limb movements of sleep: Code(s): G47.61 - Periodic limb movement disorder Category: Medical Plan Patient is advised to undergo follow-up in-lab sleep study to further assess status of severe sleep apnea and periodic limb movements of sleep in setting of wt loss. Advised to have labs as ordered by PCP. We will add additional labs to round out periodic limb movements of sleep workup. Trial gabapentin 100-300 mg daily at 21:00 Will f/u with pt after review of above to discuss results and appropriate treatment options. Pt to call with any worsening concerns or questions. Otherwise follow-up in clinic in 6 months or sooner as needed Patient seen in collaboration with Dr. Brenda Govea Orders: Orders Homocysteine Today D64.9 - Anemia, unspecified IRON PROFILE Today D64.9 - Anemia, unspecified Ferritin Today D64.9 - Anemia, unspecified Methylmalonic Acid Today D64.9 - Anemia, unspecified RT PSG in-lab sleep study Today G47.33 - Obstructive sleep apnea (adult) (pediatric), G47.61 - Periodic limb movement disorder, G47.9 - Sleep disorder, unspecified Medications: New gabapentin 100 - 300 mg (1 - 3 x 100 mg) PO BEDTIME 30 days 90 caps 3RF Coding Level of Care Code New Pt Level 4 (97027) Diagnoses Severe obstructive sleep apnea G47.33 Sleep difficulties G47.9 Periodic limb movements of sleep G47.61
== END 2024-07-05 16:08 | disposition home or self-care (01) ==
PROVIDERS: PCP Internal Medicine; Visit Provider Nurse Practitioner Family
DX: G47.33 Obstructive sleep apnea (adult) (pediatric) (principal); G47.9 Sleep disorder, unspecified; G47.61 Periodic limb movement disorder
CPT/HCPCS: 99204

== ENCOUNTER → 2024-07-05 15:05 | Outpatient (BNVA) | payer OTHER, SELFPAY | PROVIDERS: PCP Internal Medicine; Visit Provider Nurse Practitioner Family | DX: G47.33 Obstructive sleep apnea (adult) (pediatric) (principal); G47.9 Sleep disorder, unspecified; G47.61 Periodic limb movement disorder | CPT/HCPCS: 99202 ==

== ENCOUNTER 2024-07-11 10:25 | Outpatient (AMB) | payer OTHER, SELFPAY ==
[2024-07-11 10:36] VITALS: BP 124/62; PULSE 76; O2SAT 94
--- NOTE | 2024-07-11 10:36 | MHC.PC.OV ---
Vital Signs 07/11/24 10:36 Height 5 ft 9 in Weight 203 lb BMI 30.0 BP 124/62 Blood Pressure Location Lt brachial Position Sitting Pulse 76 Pulse Source Pulse Oximeter Pulse Oximetry (%) 94 Oxygen Delivery Method Room Air Intake Visit Reasons: PAF, radicular low back pain Allergies seafood Allergy (Unknown, Verified 07/11/24 10:36) Anaphylaxis tramadol Adverse Reaction (Intermediate, Verified 07/11/24 10:36) constipation and dysuria Tobacco use date assessed: 03/28/24 Dental Screening Dental Screen Date: 11/30/23 HPI PAF, radicular low back pain HPI Details 49-year-old obese male with chronic radicular low back pain severe obstructive sleep apnea atrial fibrillation coming in for follow-up. Last seen in March 2024. Review of the notes has been following up with Neurology. Patient was advised to repeat the sleep study in the setting of weight loss. Advised gabapentin 100-300 mg once a day for the periodic limb movement. Patient had an MRI of the lower back in June 29 2024 At L4-L5, there is improved epidural lipomatosis with improved now mild narrowing of the central canal. There is persistent left greater than right subarticular zone stenosis with persistent mass effect on the traversing left L5 nerve root, and worsening moderate to severe left foraminal stenosis with mass effect on the exiting left L4 nerve root. * At L3-L4, progressive multifactorial degenerative changes result in worsening moderate to severe left foraminal stenosis with mass effect on the exiting left L3 nerve root. A shallow right paracentral disc protrusion continues to result in posterior deflection of the traversing right L4 nerve root within the right subarticular zone. * At L2-L3, spondylitic changes result in similar mild central canal stenosis and mild bilateral foraminal encroachment. * At L1-L2, the previously seen disc extrusion has resorbed and there is significantly improved now mild narrowing of the central canal. Stable mild bilateral foraminal encroachment at this level. * Thickened fatty filum terminale. Normally positioned conus. PAtient was told by the neurosurgeon that they would call once recieved MRI. seen PSS and had injections. PAtient also complains of mass on the umbilcal hernia. complains of heartburn, epigastric area [facility] Medical History (Updated 07/11/24 @ 11:15 by Nurys Brambila MD) Anemia Sleep disorder breathing Afib Allergic reaction Obesity (BMI 30-39.9) Herniated lumbar intervertebral disc Lower back pain Low back strain Allergic conjunctivitis History of rib fracture Hyperglyceridemia Chronic radicular low back pain Surgical History History of discectomy Family History Father No problems noted. Mother No problems noted. Social History Housing: Apartment Alcohol intake: former Patient Tobacco Use Status: Never used Tobacco Tobacco use type: Cigarette e-Cigarette/Vaping Use: Never Used Second Hand Smoke Exposure: Yes service: No Current occupational status: employed Current occupational exposures/hazards: No Cognitive needs: No Hearing needs: No Vision needs: No Questionnaire PHQ-9 Over the last 2 weeks, how often have you been bothered by any of the following problems? 1. Little interest or pleasure in doing things: not at all 2. Feeling down, depressed, or hopeless: not at all 3. Trouble falling or staying asleep, or sleeping too much: not at all 4. Feeling tired or having little energy: not at all 5. Poor appetite or overeating: not at all 6. Feeling bad about yourself - or that you are a failure or have let yourself or your family down: not at all 7. Trouble concentrating on things, such as reading the newspaper or watching television: not at all 8. Moving or speaking so slowly that other people could have noticed. Or the opposite - being so fidgety or restless that you have been moving around a lot more than usual: not at all 9. Thoughts that you would be better off or of hurting yourself in some way: not at all Total score: 0 Depression Screening Interpretation: Negative Depression Screening Done: Yes [id number] - PHQ-9 Billing: Yes Source: Developed by Drs. Raman Mejia, Zahra Norman, Sandeep Ham and colleagues, with an educational tosha from [employer]. Thrive Questionnaire Date Thrive assessed: 11/30/23 AUDIT C Alcohol Use Questionnaire (AUDIT-C) 1. How often do you have a drink containing alcohol?: Never 2. How many drinks containing alcohol do you have on a typical day when you are drinking?: 1 or 2 (0) 3. How often do you have six or more drinks on one occasion?: Never Total Score: 0 Score Reviewed/Action Taken: No NEVA-7 AMB Questionnaire NEVA-7 Date NEVA - 7 assessed: 11/30/23 Source: Developed by Drs. Raman Mejia, Zahra Norman, Sandeep Ham and colleagues, with an educational tosha from [employer]. Physical exam (Primary Care) Vital Signs: Last Vital Signs Pulse 76 07/11/24 10:36 BP 124/62 07/11/24 10:36 Pulse Ox 94 07/11/24 10:36 Oxygen Delivery Method Room Air 07/11/24 10:36 BMI result Body Mass Index 30.0 Tobacco/Smoking Status: Tobacco use Status Tobacco use date assessed 03/28/24 07/11/24 10:39 Patient Tobacco Use Status Never used Tobacco 07/11/24 10:39 Tobacco use type Cigarette 07/11/24 10:39 e-Cigarette/Vaping Use Never Used 07/11/24 10:39 PHQ-9: PHQ-9 Score PHQ-9: Total score 0 07/11/24 10:39 Depression Screening Interpretation: Negative Thrive Assessment: Date of Thrive Assessment Date Thrive assessed 11/30/23 07/11/24 10:39 Const General: alert; No acute distress Eyes Conjunctivae: conjunctivae normal Resp Auscultation: clear to auscultation bilaterally Cardio Rate: regular rate Rhythm: regular rhythm GI Other: 3 cm umbilical hernia Extrem General: Yes normal to inspection and No edema Assessment and Plan Assessment & Plan (1) Chronic radicular low back pain: Comment: Herniated disc January 2007 Dr. Leroy; L4-5 diskectomy December 2007, MRI December 2020 progression Code(s): M54.16 - Radiculopathy, lumbar region; G89.29 - Other chronic pain Plan: Patient had an MRI done in June 2024. Patient is advised to contact the neurosurgeon. he does see PSS and has had 2 injections (2) Severe obstructive sleep apnea: Comment: 47-year-old male that I have not seen for long time had a sleep study 01/10/2023 severe degree of sleep apnea AHI of 44 per hour need ear of 88% patient was on 47-year-old male that I have not seen for long time had a sleep study 01/10/2023 severe degree of sleep apnea AHI of 44 per hour need ear of 88% patient was trialed on CPAP 8 cm water with AirFit N and 20 small nasal mask. Code(s): G47.33 - Obstructive sleep apnea (adult) (pediatric) Plan: Patient did see Neurology and advised repeat sleep study (3) Obesity (BMI 30-39.9): Code(s): E66.9 - Obesity, unspecified Plan: Diet and exercise (4) Paroxysmal atrial fibrillation: Comment: In sinus rhythm at this point. Asymptomatic. Low chads Vasc score. Code(s): I48.0 - Paroxysmal atrial fibrillation Plan: Stable and continue to monitor. (5) Periodic limb movements of sleep: Code(s): G47.61 - Periodic limb movement disorder Plan: Repeat sleep study done as well as blood work request. (6) Umbilical hernia: Code(s): K42.9 - Umbilical hernia without obstruction or gangrene Plan: discussed that if getting bigger or pain - will need surgery (7) GERD (gastroesophageal reflux disease): Code(s): K21.9 - Gastro-esophageal reflux disease without esophagitis Plan: Avoid the foods that causes that usually spicy foods, tomato products, juices, coffee, soda and foods that your sensitive to. After eating do not lie down, allow 3-4 hours before in lie down. And keep the head of bed above 30 degrees to avoid the acid from going up. Upper GI series requested Orders: Orders FL upper GI series Today K21.9 - Gastro-esophageal reflux disease without esophagitis, R13.10 - Dysphagia, unspecified Ferritin Today D64.9 - Anemia, unspecified Referrals General Surgery Referral K42.9 - Umbilical hernia without obstruction or gangrene Medications: New omeprazole 20 mg PO DAILY 30 caps 1RF K21.9 - Gastro-esophageal reflux disease without esophagitis Coding Level of Care Code Est Pt Level 4 (10688) Diagnoses Chronic radicular low back pain M54.16; G89.29 Severe obstructive sleep apnea G47.33 Obesity (BMI 30-39.9) E66.9 Paroxysmal atrial fibrillation I48.0 Periodic limb movements of sleep G47.61 Umbilical hernia K42.9 GERD (gastroesophageal reflux disease) K21.9
== END 2024-07-11 11:25 | disposition home or self-care (01) ==
PROVIDERS: PCP Internal Medicine; Visit Provider Internal Medicine
DX: M54.16 Radiculopathy, lumbar region (principal); I48.0 Paroxysmal atrial fibrillation; G89.29 Other chronic pain; Z68.30 Body mass index [BMI] 30.0-30.9, adult; G47.33 Obstructive sleep apnea (adult) (pediatric); E66.9 Obesity, unspecified; G47.61 Periodic limb movement disorder; K42.9 Umbilical hernia without obstruction or gangrene; K21.9 Gastro-esophageal reflux disease without esophagitis
CPT/HCPCS: 99214

== ENCOUNTER 2024-07-24 14:54 | Outpatient (AMB) | payer OTHER, SELFPAY ==
[2024-07-24 14:58] VITALS: BP 120/72; PULSE 73; BMI 31.0
--- NOTE | 2024-07-24 14:58 | MHC.OFFVIS ---
Vital Signs 07/24/24 14:58 Height 5 ft 9 in Weight 210 lb BMI 31.0 BP 120/72 Blood Pressure Location Rt brachial Position Sitting Pulse 73 Intake Visit Reasons: Umbilical hernia without obstruction or gangrene Intake Note: This patient presents for Umbilical hernia without obstruction or gangrene. Pt c/o; umbilical region, bulge, discomfort. [employer] [place] Required: No Accompanied by: Other Relationship Allergies seafood Allergy (Unknown, Verified 07/24/24 15:05) Anaphylaxis tramadol Adverse Reaction (Intermediate, Verified 07/24/24 15:05) constipation and dysuria Medication List - Last Reconciled 07/24/24 by Yayo Kay MD albuterol sulfate 90 mcg/actuation 2 puffs inhalation QID PRN [CPAP 8 cm H20 humidified air AIRFIT N20 Small NAsal MAsk As directed heated humidifier and all supplies ] emtricitabine-tenofovir (TDF) 200-300 mg 1 tab PO DAILY gabapentin 100 - 300 mg (1 - 3 x 100 mg) PO BEDTIME 30 days ibuprofen 600 mg PO QID PRN metoprolol succinate ER (Toprol XL) 25 mg PO DAILY omeprazole 20 mg PO DAILY ondansetron 4 mg PO Q8H PRN oxycodone 5 mg PO Q6H PRN raltegravir 400 mg PO BID HPI HPI Umbilical hernia without obstruction or gangrene: Details: 49-year-old male referred for an umbilical hernia. He has noticed this lump on his umbilicus for over a year now. This seemed to be getting bigger in size. Describes discomfort with this He denies GI complaints. He says he is healthy overall. He does admit to some tachycardia periodically. 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 [facility] Medical History Anemia Sleep disorder breathing Afib Allergic reaction Obesity (BMI 30-39.9) Herniated lumbar intervertebral disc Lower back pain Low back strain Allergic conjunctivitis History of rib fracture Hyperglyceridemia Chronic radicular low back pain Surgical History History of discectomy Family History Father No problems noted. Mother No problems noted. Social History Housing: Apartment Alcohol intake: former Patient Tobacco Use Status: Never used Tobacco Tobacco use type: Cigarette e-Cigarette/Vaping Use: Never Used Second Hand Smoke Exposure: Yes service: No Current occupational status: employed Current occupational exposures/hazards: No Cognitive needs: No Hearing needs: No Vision needs: No Review of Systems Const Denies chills and Denies fever(s) Card Denies chest pain, Denies dyspnea and Denies dyspnea on exertion Resp Denies cough, Denies dyspnea and Denies dyspnea on exertion GI Denies hematochezia and Denies change in bowel habits Denies hematuria and Denies difficulty urinating Musc Denies back pain and Denies limited range of motion Neuro Denies focal weakness and Denies convulsions Psych Denies depression and Denies mood swings Physical Exam Vital Signs: Last Vital Signs Pulse 73 07/24/24 14:58 BP 120/72 07/24/24 14:58 BMI result Body Mass Index 31.0 Const General: comfortable and no acute distress Orientation/consciousness: patient oriented x3 Neck Neck: Yes no lymphadenopathy Resp Auscultation: clear to auscultation bilaterally Cardio Rhythm: regular rhythm GI Other: Umbilical hernia, reducible, about 2.5 cm in diameter Palpation (GI): Soft to palpation, nontender and no guarding Neuro General: patient oriented x3 Assessment & Plan Assessment & Plan (1) Umbilical hernia: Code(s): K42.9 - Umbilical hernia without obstruction or gangrene Category: Medical Plan: He has a reducible umbilical hernia described above. He wants to proceed with repair. I explained the technique of repair with possible mesh. I reviewed the risks including but not limited to bleeding, infections, bowel injury, recurrence, as well as the benefits and alternatives. He understands and wants to proceed His was with him during the visit. Coding Level of Care Code New Pt Level 3 (21779) Diagnoses Umbilical hernia K42.9
== END 2024-07-24 15:18 | disposition home or self-care (01) ==
PROVIDERS: PCP Internal Medicine; Visit Provider Surgery
DX: K42.9 Umbilical hernia without obstruction or gangrene (principal)
CPT/HCPCS: 99203

== ENCOUNTER → 2024-07-24 14:54 | Outpatient (BNVA) | payer OTHER, SELFPAY | PROVIDERS: PCP Internal Medicine; Visit Provider Surgery | DX: K42.9 Umbilical hernia without obstruction or gangrene (principal) | CPT/HCPCS: 99202 ==

== ENCOUNTER → 2024-08-02 14:56 | Outpatient (BNVA) | payer OTHER, SELFPAY | PROVIDERS: PCP Internal Medicine | DX: Z77.21 Contact with and (suspected) exposure to potentially hazardous body fluids (principal) | CPT/HCPCS: 84450; 84460; 85025; 86803; 87389; 99211 ==

== ENCOUNTER → 2024-08-04 20:30 | Outpatient (REF) | payer OTHER, SELFPAY | LOC: HO.SL 20:30 | PROVIDERS: PCP Internal Medicine; Visit Provider Nurse Practitioner Family | DX: G47.33 Obstructive sleep apnea (adult) (pediatric) (principal); G47.9 Sleep disorder, unspecified; G47.61 Periodic limb movement disorder | CPT/HCPCS: 95810 ==

== ENCOUNTER → 2024-08-04 20:45 | Outpatient (BNV) | payer OTHER, SELFPAY | PROVIDERS: PCP Internal Medicine; Visit Provider Psychiatry & Neurology Neurology | DX: G47.33 Obstructive sleep apnea (adult) (pediatric) (principal) | CPT/HCPCS: 95810 ==

== ENCOUNTER 2024-08-22 09:57 | Day surgery (SDC) | payer OTHER, SELFPAY ==
[2024-08-18 13:38] VITALS: BMI 31.0
[2024-08-22] VITALS (9 sets, daily range): BP systolic 103–126; BP diastolic 59–83; PULSE 60–69; RESP 16–17; TEMP 36.3–36.4; O2SAT 94–97; BMI 32.2
--- NOTE | 2024-08-22 10:46 | MHC.SHP ---
Pre-Procedural Eval Section A - 24 Hr Update-Section A only Date of Service: 08/22/24 Section B - Complete if H&P > 30 days Chief Complaint: Umbilical hernia without obstruction or gangrene Details of Present Illness: has reducible umbilical hernia Relevant Family History (Specify if Yes): No Relevant Social History: None Present Medications: see Short Stay Collaborative assessment Medical History: Significant History (asthma GERD INEZ back pain) Allergies: Allergies Allergy/AdvReac Type Severity Reaction Status Date / Time seafood Allergy Unknown Anaphylaxis Verified 07/24/24 15:05 tramadol AdvReac Intermediate constipation Verified 07/24/24 15:05 and dysuria Review of Systems Sugical H&P ROS: Negative: Constitution, Cardiovascular, Respiratory and Gastrointestinal Exam Surgical H&P Exam: Normal: Heart and Normal: Lungs and Significant Findings: Abdomen (reducible umbilical hernia) Plan Diagnosis/Plan: Unchanged I have reviewed the history and physical and performed a pertinent physical examination on my patient. No changes have occurred unless specified. Time Spent With Patient Time: Total time managing care of this patient today ____ minutes.
--- NOTE | 2024-08-22 11:15 | HO.ANESPROP2 ---
Documented by User: Malathi Arriola NP 08/18/24 14:17 HPI - Anesthesia Eval Consult details Narrative: 49yo M for Repair Hernia Umbilical,possible mesh Severe INEZ with hx afib. Follows [facility] [place] Cardiology. Stable at yearly office visit 2023, no anticoag PMFSH Active Problems Active Problems: All Active Problems GERD (gastroesophageal reflux disease) (Acute) Umbilical hernia (Acute) Periodic limb movements of sleep (Acute) Sleep difficulties (Acute) Asthma (Acute) Lung density on x-ray (Acute) Visual changes (Acute) Insomnia (Acute) Colon cancer screening (Acute) Severe obstructive sleep apnea (Acute) Acute back pain with sciatica (Acute) Paroxysmal atrial fibrillation (Acute) Chronic radicular low back pain (Acute) Obesity (BMI 30-39.9) (Acute) Lower back pain (Acute) Past Medical History Medical History (Updated 08/18/24 @ 13:38 by Staci Corona RN) Exposure to blood or body fluid GERD (gastroesophageal reflux disease) Sleep apnea Anemia Afib Allergic reaction Obesity (BMI 30-39.9) Herniated lumbar intervertebral disc Lower back pain Low back strain Allergic conjunctivitis History of rib fracture Hyperglyceridemia Chronic radicular low back pain Family History Family History Father No problems noted. Mother No problems noted. Surgical History Surgical History History of discectomy Social History Social History Housing: Apartment Alcohol intake: former Patient Tobacco Use Status: Never used Tobacco Tobacco use type: Cigarette e-Cigarette/Vaping Use: Never Used Second Hand Smoke Exposure: Yes Use of substances other than those prescribed or required for medical reasons: No Are you DNR?: No Advance Directives: No Advance Directives Information Provided: Yes Advance Directives on File: No Recently lost weight without trying: No Poor oral hygiene: No service: No Current occupational status: employed Current occupational exposures/hazards: No Cognitive needs: No Hearing needs: No Vision needs: No Meds Allergies Allergy/AdvReac Type Severity Reaction Status Date / Time seafood Allergy Unknown Anaphylaxis Verified 07/24/24 15:05 tramadol AdvReac Intermediate constipation Verified 07/24/24 15:05 and dysuria Exam Height,Weight and Vital Signs: Height 5 ft 9 in Weight 95.254 kg Pertinent Lab Results Pertinent Lab Results: Laboratory Tests 05/05/24 11:45 WBC 6.1 Hgb 14.7 Hct 39.4 L Plt Count 234 Sodium 139 Potassium 3.8 Chloride 108 Carbon Dioxide 25 BUN 13 Creatinine 0.78 Narrative Narrative: EKG 07/2024 Vent. Rate : 063 BPM Atrial Rate : 063 BPM P-R Int : 154 ms QRS Dur : 090 ms QT Int : 374 ms P-R-T Axes : 010 -04 044 degrees QTc Int : 382 ms Normal sinus rhythm Normal ECG No significant changes when compared with the previous EKG of 13 aug 2022 Assessment and Plan Assessment Anesthesia Assessment: Chart Reviewed Documented by User: Monique Antonio DO 08/22/24 11:21 HPI - Anesthesia Eval Consult details Narrative: 49yo M for Repair Hernia Umbilical,possible mesh Severe INEZ with hx afib. Follows [facility] [place] Cardiology. Stable at yearly office visit 2023, no anticoag PMFSH Past Medical History Medical History (Updated 08/18/24 @ 13:38 by Staci Corona RN) Exposure to blood or body fluid GERD (gastroesophageal reflux disease) Sleep apnea Anemia Afib Allergic reaction Obesity (BMI 30-39.9) Herniated lumbar intervertebral disc Lower back pain Low back strain Allergic conjunctivitis History of rib fracture Hyperglyceridemia Chronic radicular low back pain Family History Family History Father No problems noted. Mother No problems noted. Family history of problems with anesthesia: No Surgical History Surgical History History of discectomy History of Problems with Anesthesia: No Social History Social History Housing: Apartment Alcohol intake: former Patient Tobacco Use Status: Never used Tobacco Tobacco use type: Cigarette e-Cigarette/Vaping Use: Never Used Second Hand Smoke Exposure: Yes Use of substances other than those prescribed or required for medical reasons: No Are you DNR?: No Advance Directives: No Advance Directives Information Provided: Yes Advance Directives on File: No Recently lost weight without trying: No Poor oral hygiene: No service: No Current occupational status: employed Current occupational exposures/hazards: No Cognitive needs: No Hearing needs: No Vision needs: No Meds Allergies Allergy/AdvReac Type Severity Reaction Status Date / Time seafood Allergy Unknown Anaphylaxis Verified 07/24/24 15:05 tramadol AdvReac Intermediate constipation Verified 07/24/24 15:05 and dysuria Exam Exam Date and Time: 08/22/24 1115 Height,Weight and Vital Signs: Height 5 ft 9 in Weight 95.254 kg Vital Signs Temperature 97.3 F 08/22/24 11:01 Pulse Rate 64 08/22/24 11:01 Respiratory Rate 16 08/22/24 11:01 Blood Pressure 120/78 08/22/24 11:01 Pulse Oximetry 96 08/22/24 11:01 Oxygen Delivery Method Room Air 08/22/24 11:01 Temperature 97.3 F 08/22/24 11:01 Pulse Rate 64 08/22/24 11:01 Respiratory Rate 16 08/22/24 11:01 Blood Pressure 120/78 08/22/24 11:01 Pulse Oximetry 96 08/22/24 11:01 Oxygen Delivery Method Room Air 08/22/24 11:01 Airway Mallampati Class: II TM Dist: >3cm Neck ROM: Full Loose/Missing/Broken Teeth: No (patient denies any loose or broken teeth) Heart: S1S2 Lungs: CTAB Assessment and Plan Assessment Anesthesia Assessment: Anesthesia Plan Discussed and Chart Reviewed Final Anesthetic Review Family History of Problems with Anesthesia: No History of Problems with Anesthesia: No NPO: Yes ASA Class: II Final Preanesthetic Review: No Changes in Pt Med Stat, Meds/Allgs Chart Reviewed, Consent Obtained/Reviewed and Anes Risks/Benef Reviewed Patient Risk: Low Procedure Risk: Low Anesthetic Plan Anesthetic Plan: GA and Agree w/ Assess. and Plan Disposition: Standard PACU
[2024-08-22] MEDS: Lactated Ringers 1,000 ML 100 ML IVCONT (11:26)
--- NOTE | 2024-08-22 11:59 | W.PM.OPN ---
Operative Note Operative Note Date of Service: 08/22/24 Narrative: Preop diagnosis: Umbilical hernia, reducible Postop diagnosis: Umbilical hernia, reducible Procedure: Repair of umbilical hernia with Ventralex mesh Surgeon: Yayo Kay MD pathology assistant: ROSIBEL Magallanes The patient is a 49 year male reducible umbilical hernia. He understood the technique of the planned repair. He is aware of the risks, benefits, and alternatives He was brought to the operating room. He was placed supine under general anesthesia via laryngeal mask airway. The abdomen was prepped and draped in the usual sterile fashion. A surgical time-out was done. The patient received cefazolin 2 g IV preoperatively I infiltrated the planned line of incision with lidocaine 1%. I made the incision on the infraumbilical margin in a transverse curvilinear fashion using a blade 15. This was carried down through the full-thickness of the skin and subcutaneous fat. I proceeded to gently dissect the umbilicus as a flap off of the subcutaneous layer. I identified the hernia along with its contents. This was from the umbilicus. I dissected the hernia down to the fascial level. I divided adhesions tethering the hernia to the fascial edge. The hernia consisted of mental fat without any bowel involvement. I was eventually able to completely reduce the hernia through the fascial defect. The fascial defect measured about 1.5 cm in diameter. The margins underneath the fascial defects were clear. I used a small-sized Ventralex mesh and this was flattened under the fascia. I secured the Prolene straps of the mesh to the fascial edge with Prolene 2 sutures. I trimmed the Prolene straps flush on the fascial level. I closed the fascia with a [id number] Maxon 1 stitch The umbilicus was tacked down to the fascia with a Polysorb 3-0 stitch to re-create the dimple. The subcutaneous layer was reapposed with Polysorb 3-0 interrupted sutures. Skin closure was achieved with Polysorb 4-0 subcuticular running stitch. The area was infiltrated with Marcaine 0.5% for postop analgesia. Dressings were applied. The procedure was completed. The patient tolerated the procedure well. There were no immediate complications. Initial and final counts of sponges and instruments correct. Estimated blood loss was less than 5 cc. The patient was extubated without difficulty and transferred to the recovery room with stable vital signs.
[2024-08-22] MEDS: oxyCODONE HCl Immed Release 5 MG TABLET PO (13:19)
== END 2024-08-22 13:53 | disposition home or self-care (01) ==
PROVIDERS: PCP Internal Medicine; Visit Provider Surgery
PROC: (CPT 49591; principal; 2024-08-22 11:30)
DX: K42.9 Umbilical hernia without obstruction or gangrene (principal); K66.0 Peritoneal adhesions (postprocedural) (postinfection); I48.91 Unspecified atrial fibrillation; D64.9 Anemia, unspecified; E78.1 Pure hyperglyceridemia; G89.29 Other chronic pain; M54.50 Low back pain, unspecified; Z79.1 Long term (current) use of non-steroidal anti-inflammatories (NSAID); Z79.899 Other long term (current) drug therapy; Z88.8 Allergy status to other drugs, medicaments and biological substances
CPT/HCPCS: 49591; C1781; J0131; J0690; J1100; J1885; J2003; J2250; J2405; J2704; J2795; J3010

== ENCOUNTER → 2024-08-22 09:57 | Outpatient (BNV) | payer OTHER, SELFPAY | PROVIDERS: PCP Internal Medicine; Visit Provider Surgery | DX: K42.9 Umbilical hernia without obstruction or gangrene (principal) | CPT/HCPCS: 49591 ==

== ENCOUNTER 2024-08-29 11:04 | Outpatient (AMB) | payer OTHER, SELFPAY ==
[2024-08-29 11:10] VITALS: BP 108/80; PULSE 69; O2SAT 95; BMI 32.0
--- NOTE | 2024-08-29 11:10 | MHC.PC.OV ---
Vital Signs 08/29/24 11:10 Height 5 ft 9 in Weight 217 lb BMI 32.0 BP 108/80 Blood Pressure Location Lt brachial Position Sitting Pulse 69 Pulse Source Pulse Oximeter Pulse Oximetry (%) 95 Oxygen Delivery Method Room Air Intake Visit Reasons: Back Pain medication request Lining Cementer Required: No Allergies seafood Allergy (Unknown, Verified 08/29/24 11:11) Anaphylaxis tramadol Adverse Reaction (Intermediate, Verified 08/29/24 11:11) constipation and dysuria Tobacco use date assessed: 03/28/24 Dental Screening Dental Screen Date: 11/30/23 HPI Back Pain medication request HPI Details 49-year-old with a history of chronic radicular low back pain, severe obstructive sleep apnea atrial fibrillation GERD coming in for follow-up. Last seen in 07/11/2024 review of the notes 08/22/2024 had an umbilical hernia repair under Dr. Kay. Patient had sleep study done in August for 2023 showing mild degree of sleep apnea with AHI of 10 with frequent periodic limb movement causing sleep disruption. Patient was given a trial of auto PAP 5-20 cm of water. Advised ferritin, B12 TSH vitamin-D CBC CMP. And consider dopamine agonist or gabapentin. will be seeing [facility]rology [facility] Medical History (Updated 08/29/24 @ 11:56 by Nurys Brambila MD) Severe obstructive sleep apnea Exposure to blood or body fluid GERD (gastroesophageal reflux disease) Sleep apnea Anemia Afib Allergic reaction Obesity (BMI 30-39.9) Herniated lumbar intervertebral disc Lower back pain Low back strain Allergic conjunctivitis History of rib fracture Hyperglyceridemia Chronic radicular low back pain Surgical History History of discectomy Family History Father No problems noted. Mother No problems noted. Social History Housing: Apartment Alcohol intake: former Patient Tobacco Use Status: Never used Tobacco Tobacco use type: Cigarette e-Cigarette/Vaping Use: Never Used Second Hand Smoke Exposure: Yes service: No Current occupational status: employed Current occupational exposures/hazards: No Cognitive needs: No Hearing needs: No Vision needs: No Questionnaire Thrive Questionnaire Date Thrive assessed: 11/30/23 AUDIT C Alcohol Use Questionnaire (AUDIT-C) 1. How often do you have a drink containing alcohol?: Never 2. How many drinks containing alcohol do you have on a typical day when you are drinking?: 1 or 2 (0) 3. How often do you have six or more drinks on one occasion?: Never Total Score: 0 Score Reviewed/Action Taken: No NEVA-7 AMB Questionnaire NEVA-7 Date NEVA - 7 assessed: 11/30/23 Source: Developed by Drs. Raman Mejia, Zahra Norman, Sandeep Ham and colleagues, with an educational tosha from [employer]. Physical exam (Primary Care) Vital Signs: Last Vital Signs Pulse 69 08/29/24 11:10 BP 108/80 08/29/24 11:10 Pulse Ox 95 08/29/24 11:10 Oxygen Delivery Method Room Air 08/29/24 11:10 BMI result Body Mass Index 32.0 Tobacco/Smoking Status: Tobacco use Status Tobacco use date assessed 03/28/24 08/29/24 11:17 Patient Tobacco Use Status Never used Tobacco 08/29/24 11:17 Tobacco use type Cigarette 08/29/24 11:17 e-Cigarette/Vaping Use Never Used 08/29/24 11:17 Thrive Assessment: Date of Thrive Assessment Date Thrive assessed 11/30/23 08/29/24 11:17 Const General: alert; No acute distress Eyes Conjunctivae: conjunctivae normal Resp Auscultation: clear to auscultation bilaterally Cardio Rate: regular rate Rhythm: regular rhythm GI Inspection: Yes normal to inspection Extrem General: Yes normal to inspection and No edema Coding Level of Care Code Est Pt Level 4 (02625) Diagnoses Periodic limb movements of sleep G47.61 Mild obstructive sleep apnea G47.33 Paroxysmal atrial fibrillation I48.0 Chronic radicular low back pain M54.16; G89.29 Obesity (BMI 30-39.9) E66.9 Assessment & Plan Assessment & Plan (1) Periodic limb movements of sleep: Code(s): G47.61 - Periodic limb movement disorder Category: Medical Plan: Discussion on medications for restless leg (2) Mild obstructive sleep apnea: Comment: August 2024 Code(s): G47.33 - Obstructive sleep apnea (adult) (pediatric) Category: Medical Plan: Patient had AHI of 10 but because of the severe limb movements was prescribed APAP (3) Paroxysmal atrial fibrillation: Comment: In sinus rhythm at this point. Asymptomatic. Low chads Vasc score. Code(s): I48.0 - Paroxysmal atrial fibrillation Category: Medical Plan: Treatment for sleep apnea advised. (4) Chronic radicular low back pain: Comment: Herniated disc January 2007 Dr. Leroy; L4-5 diskectomy December 2007, MRI December 2020 progression Code(s): M54.16 - Radiculopathy, lumbar region; G89.29 - Other chronic pain Category: Medical Plan: Narcotic pain meds: Is being prescribed with the understanding that these medications are potentially addictive and should be used only when absolutely necessary and must always be secured. Any remaining pills should be safely disposed off appropriately. Patient is advised that narcotics can impaired judgment and one should not drive or operate heavy machinery while taking these medications. Never share these medications with anybody and do not leave them unattended. They will not be replaced under any circumstances. (5) Obesity (BMI 30-39.9): Code(s): E66.9 - Obesity, unspecified Category: Medical Plan: Diet and exercise Medications: New [CANE] As directed 1 ea 0RF G89.29 - Other chronic pain, M54.16 - Radiculopathy, lumbar region Refilled albuterol sulfate 90 mcg/actuation 2 puffs inhalation QID PRN 8.5 grams 0RF shortness of breath or wheezing J45.909 - Unspecified asthma, uncomplicated oxycodone Partial Fill upon patient request. 5 mg PO Q6H PRN 20 tabs 0RF pain G89.29 - Other chronic pain, M54.16 - Radiculopathy, lumbar region Discontinued ibuprofen Discontinued Reason: Duplicate 600 mg PO QID PRN 14 tabs 0RF pain oxycodone-acetaminophen 5-325 mg (Percocet) Partial Fill upon patient request. Discontinued Reason: Patient Completed Course 1 tab PO Q4-6H PRN 25 tabs 0RF pain omeprazole Discontinued Reason: Doctor's Order 20 mg PO DAILY 30 caps 1RF K21.9 - Gastro-esophageal reflux disease without esophagitis raltegravir for HIV prophylaxis Discontinued Reason: Patient Completed Course 400 mg PO BID 60 tabs 0RF ondansetron Discontinued Reason: Doctor's Order 4 mg PO Q8H PRN 20 tabs 0RF nausea and vomiting emtricitabine-tenofovir (TDF) 200-300 mg for HIV prophylaxis Discontinued Reason: Patient Completed Course 1 tab PO DAILY 30 tabs 0RF
== END 2024-08-29 12:15 | disposition home or self-care (01) ==
LOC: HO.HMCH 11:05
PROVIDERS: PCP Internal Medicine; Visit Provider Internal Medicine
DX: I48.0 Paroxysmal atrial fibrillation (principal); G47.61 Periodic limb movement disorder; E66.9 Obesity, unspecified; Z68.32 Body mass index [BMI] 32.0-32.9, adult; G89.29 Other chronic pain; G47.33 Obstructive sleep apnea (adult) (pediatric); M54.16 Radiculopathy, lumbar region

== ENCOUNTER → 2024-08-29 11:04 | Outpatient (BNVA) | payer OTHER, SELFPAY | PROVIDERS: PCP Internal Medicine; Visit Provider Internal Medicine | DX: G47.61 Periodic limb movement disorder (principal); G47.33 Obstructive sleep apnea (adult) (pediatric); I48.0 Paroxysmal atrial fibrillation; M54.16 Radiculopathy, lumbar region; E66.9 Obesity, unspecified; G89.29 Other chronic pain | CPT/HCPCS: 99212 ==

== ENCOUNTER 2024-09-04 09:50 | Outpatient (AMB) | payer OTHER, SELFPAY ==
[2024-09-04 10:02] VITALS: BMI 31.9
--- NOTE | 2024-09-04 10:02 | MHC.OFFVIS ---
Vital Signs 09/04/24 10:02 Height 5 ft 9 in Weight 216 lb BMI 31.9 Intake Visit Reasons: S/P umbilical hernia w/mesh Intake Note: This patient presents for post-op assessment status post umbilical hernia repair with mesh. Pt c/o; reports no complaints at this time. Saloonkeeper Required: Yes Saloonkeeper Language: Assembly Line Brazer Services: Saloonkeeper Present Saloonkeeper Name: Héctor Information Interpreted: non-clinical & clinical Accompanied by: Self / Same As Patient Allergies seafood Allergy (Unknown, Verified 09/04/24 10:09) Anaphylaxis tramadol Adverse Reaction (Intermediate, Verified 09/04/24 10:09) constipation and dysuria HPI HPI S/P umbilical hernia w/mesh: Details: He underwent repair of an umbilical hernia with mesh last 08/22/2024. He tolerated procedure well. He currently denies complaints and says he feels well overall. [facility] Medical History Severe obstructive sleep apnea Exposure to blood or body fluid GERD (gastroesophageal reflux disease) Sleep apnea Anemia Afib Allergic reaction Obesity (BMI 30-39.9) Herniated lumbar intervertebral disc Lower back pain Low back strain Allergic conjunctivitis History of rib fracture Hyperglyceridemia Chronic radicular low back pain Surgical History History of umbilical hernia repair (~08/22/24) History of discectomy Family History Father No problems noted. Mother No problems noted. Social History Housing: Apartment Alcohol intake: former Patient Tobacco Use Status: Never used Tobacco Tobacco use type: Cigarette e-Cigarette/Vaping Use: Never Used Second Hand Smoke Exposure: Yes service: No Current occupational status: employed Current occupational exposures/hazards: No Cognitive needs: No Hearing needs: No Vision needs: No Review of Systems Const Denies chills and Denies fever(s) Card Denies chest pain, Denies dyspnea and Denies dyspnea on exertion Resp Denies cough, Denies dyspnea and Denies dyspnea on exertion GI Denies hematochezia and Denies change in bowel habits Denies hematuria and Denies difficulty urinating Musc Denies back pain and Denies limited range of motion Neuro Denies focal weakness and Denies convulsions Psych Denies depression and Denies mood swings Physical Exam Vital Signs: BMI result Body Mass Index 31.9 Const General: comfortable and no acute distress GI Other: Umbilical hernia repair site is well healed, not infected, repair intact Palpation (GI): Soft to palpation, not firm and nontender Assessment & Plan Assessment & Plan (1) Umbilical hernia: Code(s): K42.9 - Umbilical hernia without obstruction or gangrene Category: Medical Plan: Status post repair with mesh. He is doing very well. The incision is well healed. The repair site is intact. I advised him to avoid lifting anything more than 20 lb for 2 more weeks. He can follow up on a p.r.n. basis. Coding Level of Care Code Global (59133) Diagnoses Umbilical hernia K42.9
== END 2024-09-04 10:21 | disposition home or self-care (01) ==
LOC: HO.HGS 09:51
PROVIDERS: PCP Internal Medicine; Visit Provider Surgery
DX: K42.9 Umbilical hernia without obstruction or gangrene (principal)
CPT/HCPCS: 99212

== ENCOUNTER → 2024-09-04 09:50 | Outpatient (BNVA) | payer OTHER, SELFPAY | PROVIDERS: PCP Internal Medicine; Visit Provider Surgery | DX: Z09 Encounter for follow-up examination after completed treatment for conditions other than malignant neoplasm (principal); Z87.19 Personal history of other diseases of the digestive system; Z98.890 Other specified postprocedural states | CPT/HCPCS: 99212 ==

== ENCOUNTER 2024-10-16 15:04 | Outpatient (AMB) | payer OTHER, SELFPAY ==
--- NOTE | 2024-10-16 15:12 | MHC.OFFVIS ---
Vital Signs 10/16/24 15:13 Height 5 ft 9 in Weight 213 lb 13.574 oz BMI 31.6 BP 120/70 Blood Pressure Location Lt brachial Position Sitting Pulse 70 Pulse Source Pulse Oximeter Intake Visit Reasons: 4m follow up Intake Note: 4 mth f/up Print Finishing Worker Required: No Print Finishing Worker Name: spouse/toñito/yakut Accompanied by: Spouse Allergies seafood Allergy (Unknown, Verified 09/04/24 10:09) Anaphylaxis tramadol Adverse Reaction (Intermediate, Verified 09/04/24 10:09) constipation and dysuria Medication List - Last Reconciled 10/16/24 by Carl Villanueva MD albuterol sulfate 90 mcg/actuation 2 puffs inhalation QID PRN [CANE As directed] [CPAP 8 cm H20 humidified air AIRFIT N20 Small NAsal MAsk As directed heated humidifier and all supplies ] gabapentin 100 - 300 mg (1 - 3 x 100 mg) PO BEDTIME 30 days ibuprofen 600 mg PO Q6H PRN metoprolol succinate ER (Toprol XL) 25 mg PO DAILY oxycodone 5 mg PO Q6H PRN HPI Comments Details: Pleasant 49-year-old gentleman who has paroxysmal atrial fibrillation. He went to the emergency department on August 13 with palpitations and was noticed to be in atrial fibrillation with rapid ventricular response. He was given Cardizem as well as metoprolol but he continued to be in uncontrolled atrial fibrillation. At this stage he was seen by Cardiology and was given flecainide 300 mg which cardioverted him to sinus rhythm. Since then he has been doing well. He did not have any recent episode of than this episode on 08/13/2022. He was started on metoprolol succinate 25 mg and sent home. He has been taking that regularly. There is some concern about snoring at night and sleep apnea and he has never had sleep study in the past. Fahad [id number]: He returns for follow-up. He has been doing well. On last visit we discussed about stopping all caffeinated drinks and he has not been using them. He has not had any further episode of atrial fibrillation. He is currently recovering from bronchitis and viral illness and is currently taking albuterol inhaler and azithromycin. He used then he lived before coming and is currently tachycardic with sinus tachycardia and 120s. He also has not been using the metoprolol succinate for close to a month because he ran out. He has not use flecainide as pill in the pocket approach since we prescribed it. He has been diagnosed with sleep apnea and is in the process of getting appointment with sleep Medicine. 03/13/24: He returns for follow-up. He has been doing well. No palpitations. He is saying that he has been exercising and trying to diet. He has lost some weight also. He got diagnosed with sleep apnea and is in the process of getting the CPAP mask. He is denying any issues currently and in particular no palpitations and is stable from AFib point of view. 10/16/2024: He returns for follow-up. He has back pain due to disc prolapse. He previously had surgery on his back done 2. He said he got some injections done but continues to have some pain and off and on some leg numbness involving both legs. He had MRI and is waiting for appointment. No palpitations. No chest pain or shortness of breath. Blood pressure heart rate well controlled. [facility] Medical History Severe obstructive sleep apnea Exposure to blood or body fluid GERD (gastroesophageal reflux disease) Sleep apnea Anemia Afib Allergic reaction Obesity (BMI 30-39.9) Herniated lumbar intervertebral disc Lower back pain Low back strain Allergic conjunctivitis History of rib fracture Hyperglyceridemia Chronic radicular low back pain Surgical History History of umbilical hernia repair (~08/22/24) History of discectomy Family History Father No problems noted. Mother No problems noted. Social History Housing: Apartment Alcohol intake: former Patient Tobacco Use Status: Never used Tobacco Tobacco use type: Cigarette e-Cigarette/Vaping Use: Never Used Second Hand Smoke Exposure: Yes service: No Current occupational status: employed Current occupational exposures/hazards: No Cognitive needs: No Hearing needs: No Vision needs: No Review of Systems Const Denies chills, Denies fatigue, Denies fever(s), Denies frequent falls, Denies weakness, Denies weight gain and Denies weight loss ENT Denies dizziness Card Denies chest pain, Denies leg edema, Denies lightheadedness, Denies palpitations, Denies dyspnea and Denies dyspnea on exertion Resp Denies cough, Denies dyspnea and Denies dyspnea on exertion GI Denies hematochezia Musc Denies abnormal gait, Denies muscle weakness, Denies numbness, Denies radiating pain into limb and Denies tingling Neuro Denies abnormal gait, Denies dizziness, Denies frequent falls, Denies numbness, Denies tingling and Denies weakness Endo Denies fatigue and Denies palpitations Physical Exam Vital Signs: Last Vital Signs Pulse 70 10/16/24 15:13 BP 120/70 10/16/24 15:13 BMI result Body Mass Index 31.6 GENERAL APPEARANCE: in no acute distress, pleasant. NECK: no carotid bruit, no jugular venous distention. SKIN: no suspicious lesions, warm and dry. HEART: no murmurs, regular rate and rhythm. LUNGS: clear to auscultation bilaterally. ABDOMEN: soft, nontender. EXTREMITIES: no edema. PERIPHERAL PULSES: equal. NEUROLOGIC: No gross deficits, AAO X 3 Assessment & Plan Assessment & Plan (1) Paroxysmal atrial fibrillation: Comment: In sinus rhythm at this point. Asymptomatic. Low chads Vasc score. Code(s): I48.0 - Paroxysmal atrial fibrillation Category: Medical Plan Pleasant 49 year gentleman who is here for follow-up. He has background history of paroxysmal atrial fibrillation in the setting of caffeine use. He has not had any further episodes. Continue metoprolol at the same dose. He has back pain and is being worked up for this. He previously had this prolapse and had surgery in the past. Follow-up in 1 year. Thank you for allowing me to participate in the care of your patient. Please feel free to contact me if you have any questions. Medications: Refilled metoprolol succinate ER (Toprol XL) 25 mg PO DAILY 90 tabs 4RF Coding Level of Care Code Est Pt Level 3 (06189) Diagnoses Paroxysmal atrial fibrillation I48.0
[2024-10-16 15:13] VITALS: BP 120/70; PULSE 70; BMI 31.6
== END 2024-10-16 15:57 | disposition home or self-care (01) ==
PROVIDERS: PCP Internal Medicine; Visit Provider Internal Medicine Cardiovascular Disease
DX: I48.0 Paroxysmal atrial fibrillation (principal)
CPT/HCPCS: 99213

== ENCOUNTER → 2024-10-16 15:04 | Outpatient (BNVA) | payer OTHER, SELFPAY | PROVIDERS: PCP Internal Medicine; Visit Provider Internal Medicine Cardiovascular Disease | DX: I48.0 Paroxysmal atrial fibrillation (principal) | CPT/HCPCS: 99212 ==

== ENCOUNTER 2024-10-23 14:26 | Outpatient (AMB) | payer OTHER, SELFPAY ==
[2024-10-23 14:33] VITALS: BP 122/70; PULSE 80; O2SAT 98; BMI 32.0
--- NOTE | 2024-10-23 14:33 | A.OFFPC_ITS ---
Vital Signs 10/23/24 14:33 Height 5 ft 9 in Weight 217 lb BMI 32.0 BP 122/70 Blood Pressure Location Lt brachial Position Sitting Pulse 80 Pulse Source Pulse Oximeter Pulse Oximetry (%) 98 Oxygen Delivery Method Room Air Intake Visit Reasons: 3mth f/u Allergies seafood Allergy (Unknown, Verified 10/23/24 14:33) Anaphylaxis tramadol Adverse Reaction (Intermediate, Verified 10/23/24 14:33) constipation and dysuria Tobacco use date assessed: 03/28/24 Dental Screening Dental Screen Date: 11/30/23 HPI 3mth f/u HPI Details The patient is a 49-year-old male presenting primarily for ongoing management of atrial fibrillation, sleep apnea, and chronic back pain. The patient's atrial fibrillation is currently well-managed with metoprolol, which remains on a low dosage as per recent recommendations. There have been considerations about adjusting medications, but it is currently stable, and thus, no changes have been made. Sleep apnea had led to the use of a CPAP machine initially, which the patient found difficult to adapt to. Despite this, he is advised to persist as the condition exacerbates cardiac risks. Back pain has been a persistent issue, stemming from a recurrent situation involving a pinched nerve affecting bodily movement. This condition, complicated by a prior surgery, continues to severely limit physical activities. The patient uses a cane regularly to aid mobility. He uses oxycodone sparingly, primarily when pain is severe, but currently lacks an adequate supply for on-hand relief during acute episodes. Discussion included a potential colon cancer screening, given new age guidelines, though no definitive plans were confirmed. [facility], [facility] Medical History Severe obstructive sleep apnea Exposure to blood or body fluid GERD (gastroesophageal reflux disease) Sleep apnea Anemia Afib Allergic reaction Obesity (BMI 30-39.9) Herniated lumbar intervertebral disc Lower back pain Low back strain Allergic conjunctivitis History of rib fracture Hyperglyceridemia Chronic radicular low back pain Surgical History History of umbilical hernia repair (~08/22/24) History of discectomy Family History Father No problems noted. Mother No problems noted. Social History Housing: Apartment Alcohol intake: former Patient Tobacco Use Status: Never used Tobacco Tobacco use type: Cigarette e-Cigarette/Vaping Use: Never Used Second Hand Smoke Exposure: Yes service: No Current occupational status: employed Current occupational exposures/hazards: No Cognitive needs: No Hearing needs: No Vision needs: No Questionnaire PHQ-9 Over the last 2 weeks, how often have you been bothered by any of the following problems? 1. Little interest or pleasure in doing things: not at all 2. Feeling down, depressed, or hopeless: not at all 3. Trouble falling or staying asleep, or sleeping too much: not at all 4. Feeling tired or having little energy: not at all 5. Poor appetite or overeating: not at all 6. Feeling bad about yourself - or that you are a failure or have let yourself or your family down: not at all 7. Trouble concentrating on things, such as reading the newspaper or watching television: not at all 8. Moving or speaking so slowly that other people could have noticed. Or the opposite - being so fidgety or restless that you have been moving around a lot more than usual: not at all 9. Thoughts that you would be better off or of hurting yourself in some way: not at all Total score: 0 Depression Screening Interpretation: Negative Depression Screening Done: Yes 67266 - PHQ-9 Billing: Yes Source: Developed by Drs. Raman Mejia, Sandeep Zapien and colleagues, with an educational tosha from [employer]. Thrive Questionnaire Date Thrive assessed: 11/30/23 AUDIT C Alcohol Use Questionnaire (AUDIT-C) 1. How often do you have a drink containing alcohol?: Never 2. How many drinks containing alcohol do you have on a typical day when you are drinking?: 1 or 2 (0) 3. How often do you have six or more drinks on one occasion?: Never Total Score: 0 Score Reviewed/Action Taken: No NEVA-7 AMB Questionnaire NEVA-7 Date NEVA - 7 assessed: 11/30/23 Source: Developed by Drs. Raman Mejia, Sandeep Zapien and colleagues, with an educational tosha from [employer]. Physical exam (Primary Care) Vital Signs: Last Vital Signs Pulse 80 10/23/24 14:33 BP 122/70 10/23/24 14:33 Pulse Ox 98 10/23/24 14:33 Oxygen Delivery Method Room Air 10/23/24 14:33 BMI result Body Mass Index 32.0 Tobacco/Smoking Status: Tobacco use Status Tobacco use date assessed 03/28/24 10/23/24 14:34 Patient Tobacco Use Status Never used Tobacco 10/23/24 14:34 Tobacco use type Cigarette 10/23/24 14:34 e-Cigarette/Vaping Use Never Used 10/23/24 14:34 PHQ-9: PHQ-9 Score PHQ-9: Total score 0 10/23/24 14:34 Depression Screening Interpretation: Negative Thrive Assessment: Date of Thrive Assessment Date Thrive assessed 11/30/23 10/23/24 14:34 Const General: alert; No acute distress Eyes Conjunctivae: conjunctivae normal Resp Auscultation: clear to auscultation bilaterally Cardio Rate: regular rate Rhythm: regular rhythm GI Inspection: Yes normal to inspection Extrem General: Yes normal to inspection and No edema Coding Level of Care Code Est Pt Level 4 (41782) Diagnoses Mild obstructive sleep apnea G47.33 GERD (gastroesophageal reflux disease) K21.9 Paroxysmal atrial fibrillation I48.0 Chronic radicular low back pain M54.16; G89.29 Obesity (BMI 30-39.9) E66.9 Colon cancer screening Z12.11 Additional Codes PHQ-9 - 80534 - PHQ-9 Billing: Yes ([id number]) Assessment & Plan Assessment & Plan (1) Mild obstructive sleep apnea: Comment: August 2024 Code(s): G47.33 - Obstructive sleep apnea (adult) (pediatric) Category: Medical (2) GERD (gastroesophageal reflux disease): Code(s): K21.9 - Gastro-esophageal reflux disease without esophagitis Category: Medical (3) Paroxysmal atrial fibrillation: Comment: In sinus rhythm at this point. Asymptomatic. Low chads Vasc score. Code(s): I48.0 - Paroxysmal atrial fibrillation Category: Medical (4) Chronic radicular low back pain: Comment: Herniated disc January 2007 Dr. Leroy; L4-5 diskectomy December 2007, MRI December 2020 progression Code(s): M54.16 - Radiculopathy, lumbar region; G89.29 - Other chronic pain Category: Medical (5) Obesity (BMI 30-39.9): Code(s): E66.9 - Obesity, unspecified Category: Medical (6) Colon cancer screening: Code(s): Z12.11 - Encounter for screening for malignant neoplasm of colon Category: Medical Plan - Continue current metoprolol dosage for atrial fibrillation and monitor cardiac function. - Encourage regular use of CPAP for sleep apnea management, emphasizing the importance due to cardiac implications. - Chronic back pain management to include an as-needed prescription of oxycodone, ensuring availability during acute pain episodes. - Plan to consult another neurosurgeon regarding chronic back pain management and further surgical options. - Discussed updated guidelines for colon cancer screening, recommended at age 45; further action undecided. - Patient was advised about the flu season and importance of getting vaccinated while maintaining standard precautions. Orders: Referrals Gastroenterology Referral Z12.11 - Encounter for screening for malignant neoplasm of colon Medications: Refilled oxycodone Partial Fill upon patient request. 5 mg PO Q6H PRN 20 tabs 0RF pain G89.29 - Other chronic pain, M54.16 - Radiculopathy, lumbar region
== END 2024-10-23 15:14 | disposition home or self-care (01) ==
PROVIDERS: PCP Internal Medicine; Visit Provider Internal Medicine
DX: G47.33 Obstructive sleep apnea (adult) (pediatric) (principal); I48.0 Paroxysmal atrial fibrillation; E66.811 Obesity, class 1; Z68.32 Body mass index [BMI] 32.0-32.9, adult; K21.9 Gastro-esophageal reflux disease without esophagitis; M54.16 Radiculopathy, lumbar region; G89.29 Other chronic pain; Z12.11 Encounter for screening for malignant neoplasm of colon

== ENCOUNTER → 2024-10-23 14:26 | Outpatient (BNVA) | payer OTHER, SELFPAY | PROVIDERS: PCP Internal Medicine; Visit Provider Internal Medicine | DX: G47.33 Obstructive sleep apnea (adult) (pediatric) (principal); K21.9 Gastro-esophageal reflux disease without esophagitis; I48.0 Paroxysmal atrial fibrillation; M54.16 Radiculopathy, lumbar region; G89.29 Other chronic pain; E66.9 Obesity, unspecified | CPT/HCPCS: 96127; 99212 ==

== ENCOUNTER → 2024-11-08 13:36 | Outpatient (BNVA) | payer OTHER, SELFPAY | PROVIDERS: PCP Internal Medicine | DX: Z77.21 Contact with and (suspected) exposure to potentially hazardous body fluids (principal) | CPT/HCPCS: 84450; 84460; 85025; 86803; 87389 ==

== ENCOUNTER → 2024-11-30 15:45 | Outpatient (BNVA) | payer OTHER, SELFPAY | PROVIDERS: PCP Internal Medicine; Visit Provider Internal Medicine | DX: M54.16 Radiculopathy, lumbar region (principal); K21.9 Gastro-esophageal reflux disease without esophagitis; G89.29 Other chronic pain; E66.9 Obesity, unspecified | CPT/HCPCS: 99212 ==

== ENCOUNTER 2025-01-08 15:16 | Outpatient (AMB) | payer OTHER, SELFPAY ==
--- NOTE | 2025-01-08 15:47 | A.OFFPC_ITS ---
Vital Signs 01/08/25 15:49 Height 5 ft 9 in Weight 218 lb BMI 32.2 BP 120/68 Blood Pressure Location Lt brachial Position Sitting Pulse 68 Pulse Source Pulse Oximeter Temp 97.3 F Temp Source Temporal Artery Scan Pulse Oximetry (%) 98 Oxygen Delivery Method Room Air Intake Visit Reasons: CLBP Intake Note: Patient is here to follow up on CLPB. 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 Accompanied by: Spouse Allergies seafood Allergy (Unknown, Verified 01/08/25 15:48) Anaphylaxis tramadol Adverse Reaction (Intermediate, Verified 01/08/25 15:48) constipation and dysuria Medication List - Last Reconciled 01/08/25 by Nurys Brambila MD albuterol sulfate 90 mcg/actuation 2 puffs inhalation QID PRN [CANE As directed] [CPAP 8 cm H20 humidified air AIRFIT N20 Small NAsal MAsk As directed heated humidifier and all supplies ] cyclobenzaprine 10 mg PO TID PRN gabapentin 100 - 300 mg (1 - 3 x 100 mg) PO BEDTIME 30 days ibuprofen 600 mg PO Q6H PRN metoprolol succinate ER (Toprol XL) 25 mg PO DAILY oxycodone 5 mg PO .QD PRN 30 days Tobacco use date assessed: 01/08/25 Dental Screening Dental Screen Date: 11/30/24 [facility] Medical History Severe obstructive sleep apnea Exposure to blood or body fluid GERD (gastroesophageal reflux disease) Sleep apnea Anemia Afib Allergic reaction Obesity (BMI 30-39.9) Herniated lumbar intervertebral disc Lower back pain Low back strain Allergic conjunctivitis History of rib fracture Hyperglyceridemia Chronic radicular low back pain Surgical History History of umbilical hernia repair (~08/22/24) History of discectomy Family History Father No problems noted. Mother No problems noted. Social History Housing: Apartment Alcohol intake: former Patient Tobacco Use Status: Never used Tobacco Tobacco use type: Cigarette e-Cigarette/Vaping Use: Never Used Second Hand Smoke Exposure: Yes service: No Current occupational status: employed Current occupational exposures/hazards: No Cognitive needs: No Hearing needs: No Vision needs: No Questionnaire Thrive Questionnaire Date Thrive assessed: 11/30/24 NEVA-7 AMB Questionnaire NEVA-7 Date NEVA - 7 assessed: 11/30/24 Source: Developed by Drs. Raman Mejia, Zahra Norman, Sandeep Ham and colleagues, with an educational tosha from [employer]. Physical exam (Primary Care) Vital Signs: Last Vital Signs Temp 97.3 F 01/08/25 15:49 Pulse 68 01/08/25 15:49 BP 120/68 01/08/25 15:49 Pulse Ox 98 01/08/25 15:49 Oxygen Delivery Method Room Air 01/08/25 15:49 BMI result Body Mass Index 32.2 Tobacco/Smoking Status: Tobacco use Status Tobacco use date assessed 01/08/25 01/08/25 16:03 Patient Tobacco Use Status Never used Tobacco 01/08/25 16:03 Tobacco use type Cigarette 01/08/25 16:03 e-Cigarette/Vaping Use Never Used 01/08/25 16:03 Thrive Assessment: Date of Thrive Assessment Date Thrive assessed 11/30/24 01/08/25 16:03 Const General: alert; No acute distress Eyes Conjunctivae: conjunctivae normal Resp Auscultation: clear to auscultation bilaterally Cardio Rate: regular rate Rhythm: regular rhythm GI Inspection: Yes normal to inspection Extrem General: Yes normal to inspection and No edema Coding Level of Care Code Est Pt Level 4 (58681) Diagnoses Obesity (BMI 30-39.9) E66.9 Chronic radicular low back pain M54.16; G89.29 GERD (gastroesophageal reflux disease) K21.9 Mild obstructive sleep apnea G47.33 Paroxysmal atrial fibrillation I48.0 Upper back pain M54.9 Assessment & Plan Assessment & Plan (1) Obesity (BMI 30-39.9): Code(s): E66.9 - Obesity, unspecified Category: Medical Plan: Exercise and diet (2) Chronic radicular low back pain: Comment: Herniated disc January 2007 Dr. Leroy; L4-5 diskectomy December 2007, MRI December 2020 progression Code(s): M54.16 - Radiculopathy, lumbar region; G89.29 - Other chronic pain Category: Medical Plan: Narcotic pain meds: Is being prescribed with the understanding that these medications are potentially addictive and should be used only when absolutely necessary and must always be secured. Any remaining pills should be safely disposed off appropriately. Patient is advised that narcotics can impaired judgment and one should not drive or operate heavy machinery while taking these medications. Never share these medications with anybody and do not leave them unattended. They will not be replaced under any circumstances. (3) GERD (gastroesophageal reflux disease): Code(s): K21.9 - Gastro-esophageal reflux disease without esophagitis Category: Medical Plan: Avoid the foods that causes that usually spicy foods, tomato products, juices, coffee, soda and foods that your sensitive to. After eating do not lie down, allow 3-4 hours before in lie down. And keep the head of bed above 30 degrees to avoid the acid from going up. (4) Mild obstructive sleep apnea: Comment: August 2024 Code(s): G47.33 - Obstructive sleep apnea (adult) (pediatric) Category: Medical Plan: not using the CPPA (5) Paroxysmal atrial fibrillation: Comment: In sinus rhythm at this point. Asymptomatic. Low chads Vasc score. Code(s): I48.0 - Paroxysmal atrial fibrillation Category: Medical Plan: on metoprolol and stable (6) Upper back pain: Code(s): M54.9 - Dorsalgia, unspecified Category: Medical Plan: muscle relaxant sent Plan History of Present Illness The patient is a 49-year-old male presenting for follow-up on chronic cond itions, including chronic low back pain with radiculopathy. The patient has significant discomfort from long-standing low back pain with associated radicular symptoms, managed with chronic pain medication. His condition has led to an 8-pound unintended weight loss. He also reports atrial fibrillation controlled with metoprolol, without recent palpitations. The patient's last metabolic profile showed an elevated blood glucose level, necessitating regular monitoring. He experiences symptoms of GERD, such as postprandial fullness and discomfort, for which diet and exercise modifications have been recommended. Additionally, he suffers from mild obstructive sleep apnea but struggles with consistent CPAP use. Currently employed part-time, the patient manages work responsibilities while pursuing disability support, encountering barriers due to work hour limitations. Health Maintenance - Advised on lifestyle modifications for weight management, including diet and exercise. - Regular monitoring of blood glucose levels for elevated blood sugar. - Recommendations discussed for continual CPAP use to manage obstructive sleep apnea. Social History - Employment: Works part-time, approximately 20 hours per week. - Financial: Actively seeking disability support but facing barriers due to work hours. - Diet/Exercise: Recommended dietary changes and regular exercise for weight management and GERD symptoms. Review of Systems - Respiratory: Reports difficulty sleeping due to sleep apnea and postprandial fullness affecting respiration. - Cardiovascular: Denies palpitations while on metoprolol. - Gastrointestinal: Reports fullness and discomfort after meals. Physical Exam Results - Labs: Elevated blood sugar level noted in May 2024. - Previous Imaging: X-ray findings not disclosed in the conversation. Plan Management of chronic low back pain with appropriate analgesia will be continued, ensuring effective symptom control. Atrial fibrillation is controlled on metoprolol, with regular assessments to monitor symptoms. Close monitoring of elevated blood glucose levels is advised with dietary modifications. GERD management includes dietary changes to minimize postprandial fullness and discomfort. Emphasis is placed on regular CPAP use to manage mild obstructive sleep apnea and improve sleep quality. Patient was informed and verbally consented to the use of an ambient scribe for clinic note documentation during this visit. Discussion Notes I discussed with the patient the ongoing management of his chronic conditions, highlighting the necessity of controlled pain medication for low back pain and continuing metoprolol for atrial fibrillation. We reviewed the patient's elevated blood sugar levels and reinforced the importance of diet in managing these metrics. The benefits and necessity of adhering to CPAP therapy for sleep apnea were reiterated. The patient was advised about potential work adjustments to qualify for disability support and acknowledged employment's financial pressures. Subsequent laboratory and CV risk assessments were planned based solely on reported results and patient complaints to date. Patient Instructions - Continue current pain management regimen for low back pain. - Maintain metoprolol for atrial fibrillation and observe for any symptoms. - Regular monitoring of blood glucose and dietary modifications for control. - Follow dietary recommendations to manage GERD symptoms. - Ensure consistent use of CPAP for obstructive sleep apnea relief. Medications: New cyclobenzaprine 10 mg PO TID PRN 20 tabs 0RF muscle spasm M54.9 - Dorsalgia, unspecified Refilled oxycodone Partial Fill upon patient request. 5 mg PO .QD PRN 30 tabs 0RF pain 30 days G89.29 - Other chronic pain, M54.16 - Radiculopathy, lumbar region
[2025-01-08 15:49] VITALS: BP 120/68; PULSE 68; TEMP 36.3; O2SAT 98; BMI 32.2
--- OUTSIDE RECORDS SUMMARY | 2025-01-08 17:27 | XMS_ITS | Clinical Summary ---
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 02/10/2024 Active Active Problems Problem Noted Date Diagnosed Date Dental root caries 07/05/2024 Open fracture of tooth 11/24/2023 Fractured dental judaism with loss of materi al 11/24/2023 Encounters Date Type Department Care Team Description 12/29/2024 11:30 AM EST Office Visit [facility] [address] [place] [address] Glass-Simon, Bethany, DDS Dental caries (Primary Dx); Open fracture of tooth, initial encounter from Last 3 Months Social History Tobacco Use Types Packs/Day Years Used Date Smoking Tobacco: Never Smokeless Tobacco: Never Tobacco Cessation:Counseling Given: Not Answered Alcohol Use Standard Drinks/Week Comments Never 0 (1 standard drink = 0.6 oz pur e alcohol) Sex and Gender Information Value Date Recorded Sex Assigned at Male 08/31/2022 10:15 AM EDT Legal Sex Male 10:15 AM EDT Gender Identity Male 08/31/2022 10:15 AM EDT Sexual Orientation Straight 08/31/2022 10 :15 AM EDT Last Filed Vital Signs Vital Sign Reading Time Taken Comments Blood Pressure 120/80 12/29/2024 11:23 AM EST Pulse 78 07/05/2024 9:11 AM EDT Temperature - - Respiratory Rate - - Oxygen Saturation - - Inhaled Oxygen Concentration - - Weight - - Height - - Body Mass Index - - Plan of Treatment Upcoming Encounters Date Type Department Care Team (Late st Contact Info) Description 02/05/2025 8:00 AM EDT Office Visit [facility] [address] [place] [address] Joel Maki DDS [address] [place] [address] 05/02/2025 8:00 AM EDT Office Visit [facility] [address] [place], [place] [id number] Jenifer Espinoza Health Maintenance Due Date Last Done Comments CT Colonography 1977 Colonoscopy 1977 Colorectal Cancer Screening 1977 Dental X-Ray: Full Mouth 1977 Depression Screening 1977 FIT DNA/Cologuard 1977 FIT 1977 FOBT 1977 HIV Screening 1977 Lipid Panel 1977 SDOH Screening 1977 Sigmoidoscopy 1977 Alcohol/Substance Use Screening 1989 Family Planning (PISQ) 1992 Hepatitis C Screening 1995 COVID-19 Vaccine (3 - 2023-2 5 season) 2024 04/19/2022, 03/29/2022 Influenza Vaccine (#1) 2024 , 07/07/2019 Dental Oral Exam 10/18/2024 04/17/2024 Dental Prophylaxis 02/15/2025 08/16/2024 Dental X-Ray: Bitewings 07/15/2025 07/14/2024 Tobacco Screening 12/29/2025 12/29/2024 Zoster Vaccines (1 of 2) 2027 DTaP/Tdap/Td Vaccines (3 - T d or Tdap) 05/05/2034 05/05/2024, 03/05/2016 RSV Patients and Patients Aged 60 years or older (1 - 1-dose 75+ series) 2052 Hepatitis B Vaccines Completed 11/08/2024, 06/05/2024, 05/08/2024 HIB Vaccines Aged Out No longer eligi ble based on patient's age to complete this topic HPV Vaccines Aged Out No longer eligi ble based on patient's age to complete this topic Hepatitis A Vaccines Aged Out No long er eligible based on patient's age to complete this topic IPV Vaccines Aged Out No longer eligi ble based on patient's age to complete this topic Meningococcal Vaccine Aged Out No aziza johann eligible based on patient's age to complete this topic Pneumococcal Vaccine: Pediatrics (0 to 5 Years) and At-Risk Patients (6 to 49) Years) Aged Out No longer eligible b ased on patient's age to complete this topic RSV under 20 months Aged Out No longe r eligible based on patient's age to complete this topic Rotavirus Vaccines Aged Out No longer eligible based on patient's age to complete this topic Procedures Procedure Name Priority Date/Time Associated Diagnosis Comments CASE PRESENTATION, DETAILED AND EXTENSIVE TREATMENT PLANNING Routine 12/29/2024 11:30 AM EST Dental caries Open fracture of tooth, initial encounter INTRAORAL - PERIAPICAL FIRST RADIOGRAPHIC IMAGE Routine 12/29/2024 11:30 AM EST Dental caries Open fracture of tooth, initial encounter LIMITED ORAL EVALUATION - PROBLEM FOCUSED Routine 12/29/2024 11:30 AM EST Dental caries Open fracture of tooth, initial encounter PROPHYLAXIS - ADULT Routine 08/16/2024 3 :00 PM EDT Dental plaque Dental calculus BITEWING - SINGLE RADIOGRAPHIC IMAGE Routine 07/14/2024 8:00 AM EDT Full coverage crown needed for root canal-treated tooth PERIODIC ORAL EVALUATION - ESTABLISHED PATIENT Routine 04/17/2024 9:30 AM EDT Dental caries Encounter for dental examination Bruxism from Last 3 Months or Most Recently Relevant to Health Maintenance Insurance [facility] MEDICAID STAND ADULT
--- OUTSIDE RECORDS SUMMARY | 2025-01-08 17:27 | XMS_ITS | Encounter Summary ---
Author Organization [facility] Address [address] [place] [address] [address] [place] [address] Care Team Providers Care Tube Blower Name Role Phone Unavailable Primary Care Provider Unavailabl e Reason for Visit * Reason Comments Dental Pain Encounter Details Date Type Department Care Team (Late st Contact Info) Description 12/29/2024 11:30 AM EST Office Visit [facility] ADULT DENTAL [address] [place] [address] Bethany Boyce DDS [address] [place] [address] Dental caries (Primary Dx); Open fracture of tooth, initial encounter Social History Tobacco Use Types Packs/Day Years Used Date Smoking Tobacco: Never Smokeless Tobacco: Never Alcohol Use Standard Drinks/Week Comments Never 0 (1 standard drink = 0.6 oz pur e alcohol) Sex and Gender Information Value Date Recorded Sex Assigned at Male 08/31/2022 10:15 AM EDT Legal Sex Male 10:15 AM EDT Gender Identity Male 08/31/2022 10:15 AM EDT Sexual Orientation Straight 08/31/2022 10 :15 AM EDT documented as of this encounter Last Filed Vital Signs Vital Sign Reading Time Taken Comments Blood Pressure 120/80 12/29/2024 11:23 AM EST Pulse - - Temperature - - Respiratory Rate - - Oxygen Saturation - - Inhaled Oxygen Concentration - - Weight - - Height - - Body Mass Index - - documented in this encounter Progress Notes * Bethany Boyce DDS - 12/29/2024 11:30 AM EST Dental procedures in this visit D0140 - LIMITED ORAL EVALUATION - PROBLEM FOCUSED (Completed) Service provider: Bethany Boyce DDS Billing provider: Bethany Boyce DDS [id number] - INTRAORAL - PERIAPICAL FIRST RADIOGRAPHIC IMAGE (Completed) Service provider: Bethany Boyce DDS Billing provider: Bethany Boyce DDS [id number] - CASE PRESENTATION, DETAILED AND EXTENSIVE TREATMENT PLANNING (Completed) Service provider: Bethany Boyce DDS Billing provider: Bethany Boyce DDS Patient ID: Jeanette Palencia is a 49 y.o. male. Time Out: Timeout Date: 12/29/24, Timeout Time: 112 Location: [facility] Tooth: #10 Procedure: Limited exam Verified the above with patient, automotive service assistant, and provider. Confirmed via patient's chart, intraorally and by radiographs. Drum Worker: not applicable Chief Complaint Patient presents with Dental Pain Medical Hx: Vitals: Blood pressure 120/80. Past Medical History: Diagnosis Date Irregular heart beat Medications: Outpatient Encounter Medications as of 12/29/2024 Medication Sig Dispense Refill metoprolol succinate XL (Toprol-XL) 25 MG 24 hr tablet Take 25 mg by mouth Once per day. No facility-administered encounter medications on file as of 12/29/2024. Subjective: Pain: not present Duration: 1 days Objective: Tooth: #10 Radiographs Taken: PA(s) Radiographic Findings: complete fracture o crown #10 due to recurrent caries into the root Clinical Findings: darkened recurrent decay into root with complete fracture of crown tissue Swelling: inflammation of gingival tissue is observed Diagnosis: Fractured tooth; recurrent decay Assessment/Plan: Referred for ext RPD Prescriptions: N/a Pt tolerated procedure well, all questions answered. Dismissed in good condition. NV: Ext #10 Senior Data Warehouse Architect: RHONA Christie Dentist: Bethany Boyce DDS documented in this encounter Plan of Treatment Upcoming Encounters Date Type Department Care Team (Late st Contact Info) Description 02/05/2025 8:00 AM EDT Office Visit [facility] ADULT DENTAL [address] [place] [address] Joel Maik DDS [address] [facility] [place] [address] 05/02/2025 8:00 AM EDT Office Visit [facility] ADULT D[facility]AL [address] [facility] [place] [address] Jenifer Espinoza Scheduled Orders Name Type Priority Associated Diagnoses Orde r Schedule 10 10 EXTRACTION, ERUPTED TOOTH OR EXPOSED ROOT (ELEVATION/FORCEPS REMOVAL) Dental Routine [address] arting 12/29/2024 DENTURE IMPRESSION Dental Routine 1 Occu rrences starting 12/29/2024 BITE REGISTRATION Dental Routine 1 Occur rences starting 12/29/2024 WAX TRY IN Dental Routine 1 Occurrences starting 12/29/2024 10,15 10,15 MAXILLARY PARTIAL DENTURE - RESIN BASE (INCLUDING, RETENTIVE/CLASPING MATERIALS, RESTS, AND TEETH) Dental Routine [address] arting 12/29/2024 documented as of this encounter Procedures Procedure Name Priority Date/Time Associated Diagnosis Comments LIMITED ORAL EVALUATION - PROBLEM FOCUSED Routine 12/29/2024 11:30 AM EST Dental caries Open fracture of tooth, initial encounter INTRAORAL - PERIAPICAL FIRST RADIOGRAPHIC IMAGE Routine 12/29/2024 11:30 AM EST Dental caries Open fracture of tooth, initial encounter CASE PRESENTATION, DETAILED AND EXTENSIVE TREATMENT PLANNING Routine 12/29/2024 11:30 AM EST Dental caries Open fracture of tooth, initial encounter documented in this encounter Visit Diagnoses Diagnosis Dental caries- Primary Unspecified dental caries Open fracture of tooth, initial encounter documented in this encounter
--- OUTSIDE RECORDS SUMMARY | 2025-01-08 17:27 | XMS_ITS | Encounter Summary ---
Author Organization [employer] [facility] Address [address] [place] [address] [address] [place] [address] Care Team Providers Care Fund Accounting Manager Name Role Phone Unavailable Primary Care Provider Unavailabl e Encounter Details Date Type Department Care Team (Latest Contact Info) Description 09/12/2021 Abstract [facility] CONVERSIONS Dental, Provider, DDS Social History Tobacco Use Types Packs/Day Years Used Date Smoking Tobacco: Never Assessed Sex and Gender Information Value Date Recorded Sex Assigned at Male 08/31/2022 10:15 AM EDT Legal Sex Male 10:15 AM EDT Gender Identity Male 08/31/2022 10:15 AM EDT Sexual Orientation Straight 08/31/2022 10 :15 AM EDT documented as of this encounter Plan of Treatment Upcoming Encounters Date Type Department Care Team (Late st Contact Info) Description 02/05/2025 8:00 AM EDT Office Visit [facility] ADULT DENTAL [address] [place] [address] Joel Maki DDS [address] [place] [address] 05/02/2025 8:00 AM EDT Office Visit [facility] ADULT DENTAL [address] [place] [address] Jenifer Espinoza documented as of this encounter Visit Diagnoses Not on filedocumented in this encounter
== END 2025-01-08 16:21 | disposition home or self-care (01) ==
PROVIDERS: PCP Internal Medicine; Visit Provider Internal Medicine
DX: I48.0 Paroxysmal atrial fibrillation (principal); E66.9 Obesity, unspecified; Z68.32 Body mass index [BMI] 32.0-32.9, adult; M54.16 Radiculopathy, lumbar region; G89.29 Other chronic pain; K21.9 Gastro-esophageal reflux disease without esophagitis; G47.33 Obstructive sleep apnea (adult) (pediatric); M54.9 Dorsalgia, unspecified

== ENCOUNTER → 2025-01-08 15:16 | Outpatient (BNVA) | payer OTHER, SELFPAY | PROVIDERS: PCP Internal Medicine; Visit Provider Internal Medicine | DX: E66.9 Obesity, unspecified (principal); Z68.32 Body mass index [BMI] 32.0-32.9, adult; M54.16 Radiculopathy, lumbar region; G89.29 Other chronic pain; K21.9 Gastro-esophageal reflux disease without esophagitis; G47.33 Obstructive sleep apnea (adult) (pediatric); I48.0 Paroxysmal atrial fibrillation; M54.9 Dorsalgia, unspecified; Z71.3 Dietary counseling and surveillance | CPT/HCPCS: 99212 ==

== ENCOUNTER 2025-01-18 08:44 | Outpatient (AMB) | payer OTHER, SELFPAY ==
--- OUTSIDE RECORDS SUMMARY | 2025-01-18 09:05 | XMS_ITS | Clinical Summary ---
Author Organization [facility] Address [address] [place] [address] [address]t [place] [address] Care Team Providers Care Application Development Team Lead Name Role Phone Unavailable Primary Care Provider [...] Open fracture of tooth 11/24/2023 Fractured dental uatsdin with loss of materi al 11/24/2023 Encounters Date Type Department Care Team Description 12/29/2024 11:30 AM EST Office Visit [facility] ADULT DENTAL [address] [place] [address] Glass-Simon, Bethany, DDS Dental caries (Primary Dx); [...] Description 02/05/2025 8:00 AM EDT Office Visit [facility] ADULT DENTAL [address] [place] [address] Joel Mkai DDS [address] [place] [address] 05/02/2025 8:00 AM EDT Office Visit [facility] ADULT DENTAL [address] [place], [place] [phone] Jenifer Espinoza Health Maintenance Due Date Last [...] Most Recently Relevant to Health Maintenance Insurance [facility] MEDICAID STAND ADULT
--- OUTSIDE RECORDS SUMMARY | 2025-01-18 09:05 | XMS_ITS | Encounter Summary ---
Author Organization [employer] [facility] Address [address] [place] [address] [address] [place] [address] Care Team Providers Care Automatic Corn Grinder Operator Name Role Phone Unavailable Primary Care Provider Unavailabl e Reason for Visit * Reason Comments Dental Pain Encounter Details Date Type Department Care Team (Late st Contact Info) Description 12/29/2024 11:30 AM EST Office Visit [facility] ADULT DENTAL [address] [place] [address] Bethany Boyce DDS [address] [place] [address] Dental caries (Primary Dx); Open fracture of [...] Timeout Date: 12/29/24, Timeout Time: 112 Location: [facility] Tooth: #10 Procedure: Limited exam Verified the above with patient, shipping assistant, and provider. Confirmed via patient's chart, intraorally and by radiographs. Client Account Representative: not applicable Chief Complaint Patient presents with [...] Dismissed in good condition. NV: Ext #10 Economic Development Coordinator: RHONA Christie Dentist: Bethany Boyce DDS documented in this encounter Plan of Treatment Upcoming Encounters Date Type Department Care Team (Late st Contact Info) Description 02/05/2025 8:00 AM EDT Office Visit [facility] ADULT DENTAL [address] [place] [address] Joel Maki DDS [address] [facility] [place] [address] 05/02/2025 8:00 AM EDT Office Visit [facility] ADULT DENTAL [address] [facility] [place] [address] Jenifer Espinoza Scheduled Orders Name Type Priority [...]
--- OUTSIDE RECORDS SUMMARY | 2025-01-18 09:06 | XMS_ITS | Encounter Summary ---
Author Organization [employer] [facility] Address [address] [place] [address] [address] [place] [address] Care Team Providers Care Housing Director Name Role Phone Unavailable Primary Care Provider Unavailabl e Encounter Details Date Type Department Care Team (Latest Contact Info) Description 09/12/2021 Abstract [facility] CONVERSIONS Dental, Provider, DDS Social History [...] Description 02/05/2025 8:00 AM EDT Office Visit [facility] ADULT DENTAL [address] [place] [address] Joel Maki DDS [address] [place] [address] 05/02/2025 8:00 AM EDT Office Visit [facility] ADULT DENTAL [address] [place] [address] Jenifer Espinoza documented as of this encounter Visit Diagnoses Not on filedocumented in this encounter
--- NOTE | 2025-01-18 09:17 | A.OFFVIS_ITS ---
Vital Signs 01/18/25 09:27 Weight 220 lb BP 110/62 Blood Pressure Location Rt brachial Position Sitting Pulse 86 Pulse Source Pulse Oximeter Pulse Oximetry (%) 95 Intake Visit Reasons: f/u appt Accompanied by: Self / Same As Patient Allergies seafood Allergy (Unknown, Verified 01/18/25 09:26) Anaphylaxis tramadol Adverse Reaction (Intermediate, Verified 01/18/25 09:26) constipation and dysuria Medication List - Last Reconciled 01/18/25 by ROSANA Figueroa albuterol sulfate 90 mcg/actuation 2 puffs inhalation QID PRN [CANE As directed] [CPAP 8 cm H20 humidified air AIRFIT N20 Small NAsal MAsk As directed heated humidifier and all supplies ] cyclobenzaprine 10 mg PO TID PRN gabapentin 100 - 300 mg (1 - 3 x 100 mg) PO BEDTIME 30 days ibuprofen 600 mg PO Q6H PRN metoprolol succinate ER (Toprol XL) 25 mg PO DAILY oxycodone 5 mg PO .QD PRN 30 days HPI Comments Details: The patient is a 49-year-old male presenting with follow-up for persistent sleep disorders and daytime sleepiness. Pt is accompanied by his girlfriend, Amanda. A recent study shows mild obstructive sleep apnea marked by 10 episodes/hour and low oxygen saturations at 87%. Notable leg movements during sleep result in 40 awakenings hourly. His chronic back pain further complicates sleep. Additional symptoms include BLE urge to move leg movements, distal numbness, radiating pains, muscle cramps- occurs episodically in one leg or the other. he does acknowledge waking restlessness in legs when sedentary. He states his father also has some restlessness and low back issues. His sleep is worse after eating late- recently has stopped eating late per cardiology recommendation to decrease to lose weight. CPAP initiated recently, however is not tolerating the pressures and therefore not using it. Surgery in 2007 for back pain; episodic oxycodone use continues. Patient states gabapentin has helped just some. Since the last visit, pt underwent In-lab sleep study (PSG) which revealed mild obstructive sleep apnea and marked periodic limb movements of sleep: Sleep study date: 08/04/2024 AHI: 10/hr REM AHI: 0/hr O2 geeta: 67% SpO2 under 88% for: 0 minutes Average SpO2: 95% Periodic limb movement of sleep (PLMS) index: 86/hour Periodic limb movement of sleep (PLMS) arousal index: 40/hour 07/05/2025: 49-yr-old male presents for new in-person patient visit for sleep consultation. Pt is accompanied by his girlfriend, Amanda. Patient reports he underwent in-lab PSG in December 2022 as he was having palpitations, snoring, gasping arousals and excessive daytime sleepiness. The in-lab PSG showed severe sleep apnea with frequent limb movements of sleep: AHI 44/hr, average SpO2 93% with O2 geeta 88 %, periodic limb movement of sleep index 88/hr, PLMS arousal index 7.7 per hour. Thus, sleep study was converted to a Pap titration study, which showed best response to CPAP at 8 cm H2O. Patient reports that his sleep apnea may have been so severe, as he weighed at least 20 lb more during the sleep study than he does now. Additionally he notes that he was taking oxycodone during the timing of this study, and that he was having a flare of low back pain, muscle spasms, which may have increased his limb movements during sleep. PCP did order follow-up lab work to further assess the limb movements of sleep, however these have not been done yet. Patient currently feels that he is snoring less. He feels his primary concern is that he has difficulty initiating sleep. And this is why he has continued daytime sleepiness. He did try a sleeping medication from his PCP, however states this was not helpful. His usual bedtime is around 01:00, and usually wakes up around 06:00. He avoids caffeine per cardiology's recommendations. When he is not having a lower back flare-up, he is physically active at work. He states that when he is having a flare-up of his low back symptoms, which he states is lumbar disc bulging associated with muscle spasms, resulting in either upper back or either right or left leg pain and muscle spasms and cramps. He is more restless at this time. He denies any current BLE numbness, tingling, weakness. Does note that he has to be careful not to pull out his lower back. He is followed by [facility] for his back pain. His palpitations have resolved with medication management per Cardiology. Patient's partner states that patient does continue to snore, and has frequent arousals after falling asleep. Patient does also endorse episodes of cough, shortness of breath congestion and wheezing. As well as acid reflux, especially if he eats later in the day. Pt did have a needle stick at work this May and was tx'd w/ a prophylactic course of antiviral tx- he is scheduled to have f/u testing through [facility]. [facility] Medical History Severe obstructive sleep apnea Exposure to blood or body fluid GERD (gastroesophageal reflux disease) Sleep apnea Anemia Afib Allergic reaction Obesity (BMI 30-39.9) Herniated lumbar intervertebral disc Lower back pain Low back strain Allergic conjunctivitis History of rib fracture Hyperglyceridemia Chronic radicular low back pain Surgical History History of umbilical hernia repair (~08/22/24) History of discectomy Family History Father No problems noted. Mother No problems noted. Social History Housing: Apartment Alcohol intake: former Patient Tobacco Use Status: Never used Tobacco Tobacco use type: Cigarette e-Cigarette/Vaping Use: Never Used Second Hand Smoke Exposure: Yes service: No Current occupational status: employed Current occupational exposures/hazards: No Cognitive needs: No Hearing needs: No Vision needs: No Physical Exam Vital Signs: Last Vital Signs Pulse 86 01/18/25 09:27 BP 110/62 01/18/25 09:27 Pulse Ox 95 01/18/25 09:27 Const General: no acute distress Orientation/consciousness: patient oriented x3 Resp Effort & Inspection: normal respiratory effort and able to speak in complete sentences Neuro General: patient oriented x3 Psych Mental Status: mental status grossly normal Speech and movement: Clear speech present Attitude: cooperative Assessment & Plan Assessment & Plan (1) Lower back pain: Comment: Hx of Herniated disck for Surgery, 2010 right lateral disc herniation T12-L1, L1-L2 and L4-L5 March 2021 right L3 -4 transforaminal epidural injection Code(s): M54.5 - Low back pain Category: Medical Qualifiers: Back pain laterality: right Chronicity: acute Sciatica presence: without sciatica Qualified Code(s): M54.5 - Low back pain (2) Periodic limb movements of sleep: Code(s): G47.61 - Periodic limb movement disorder Category: Medical (3) Muscle cramps: Code(s): R25.2 - Cramp and spasm Category: Medical (4) Bilateral leg paresthesia: Code(s): R20.2 - Paresthesia of skin Category: Medical (5) Mild obstructive sleep apnea: Comment: August 2024 Code(s): G47.33 - Obstructive sleep apnea (adult) (pediatric) Category: Medical Plan Discussion Notes I discussed the findings of the sleep study with the patient, which indicate a diagnosis of mild obstructive sleep apnea and periodic limb movement disorder and associated sleep arousal disorder. 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 We reviewed the implications of these findings on sleep architecture and overall health. The patient was informed of potential management strategies, and we deliberated on the balance between pharmaceutical intervention versus conservative management options. The benefits and drawbacks of treatment, including the likelihood of symptom reduction and improved sleep quality, were thoroughly examined. The need for a follow-up plan was also considered, to assess the progress and efficacy of any initiated treatment. The patient expressed understanding and agreement with the outlined management approach. Plan - Patient is advised to undergo follow-up in-lab PAP titration study to identify optimal PAP treatment pressures. - Increase gabapentin from 300 mg daily at bedtime to 200 mg daily in the evening and 300 mg at bedtime. - - - Advised to not take Gabapentin directly with as needed oxycodone. - check labs for common etiologies of periodic limb movements of sleep- lab orders already placed by myself in PCP, added magnesium and vitamin B evaluations as well. - initiated order for bilateral lower extremity EMG/ NCS to better assess patient's paresthesia, numbness, radicular pain symptoms in setting of marked periodic limb movements of sleep. - Will follow-up upon review of above and patient to follow-up in clinic in 6 months or sooner prn. Patient was informed and verbally consented to the use of an ambient scribe for clinic note documentation during this visit. Orders: Orders Vitamin B1 Today G47.61 - Periodic limb movement disorder, M54.5 - Low back pain, R20.2 - Paresthesia of skin, R25.2 - Cramp and spasm Vitamin B6 Today G47.61 - Periodic limb movement disorder, M54.5 - Low back pain, R20.2 - Paresthesia of skin, R25.2 - Cramp and spasm NE electromyogram (EMG) Today G47.61 - Periodic limb movement disorder, M54.5 - Low back pain, R20.2 - Paresthesia of skin, R25.2 - Cramp and spasm NE nerve conduction velocity Today G47.61 - Periodic limb movement disorder, M54.5 - Low back pain, R20.2 - Paresthesia of skin, R25.2 - Cramp and spasm Magnesium Today G47.61 - Periodic limb movement disorder, M54.5 - Low back pain, R20.2 - Paresthesia of skin, R25.2 - Cramp and spasm Medications: Changed From gabapentin 100 - 300 mg (1 - 3 x 100 mg) PO BEDTIME 30 days 90 caps 3RF To gabapentin 200mg q evening and 300mg qhs orally .; 150 caps 6RF 30 days Coding Level of Care Code Est Pt Level 4 (90821) Diagnoses Acute right-sided low back pain without sciatica M54.5 Back pain laterality: right Chronicity: acute Sciatica presence: without sciatica Periodic limb movements of sleep G47.61 Muscle cramps R25.2 Bilateral leg paresthesia R20.2 Mild obstructive sleep apnea G47.33
[2025-01-18 09:27] VITALS: BP 110/62; PULSE 86; O2SAT 95
== END 2025-01-18 10:30 | disposition home or self-care (01) ==
LOC: HO.HSMS 08:44
PROVIDERS: PCP Internal Medicine; Visit Provider Nurse Practitioner Family
DX: M54.50 Low back pain, unspecified (principal); G47.61 Periodic limb movement disorder; R25.2 Cramp and spasm; R20.2 Paresthesia of skin; G47.33 Obstructive sleep apnea (adult) (pediatric)
CPT/HCPCS: 99214

== ENCOUNTER → 2025-01-18 08:44 | Outpatient (BNVA) | payer OTHER, SELFPAY | PROVIDERS: PCP Internal Medicine; Visit Provider Nurse Practitioner Family | DX: G47.33 Obstructive sleep apnea (adult) (pediatric) (principal); G47.61 Periodic limb movement disorder; R25.2 Cramp and spasm; M54.59 Other low back pain; R20.2 Paresthesia of skin | CPT/HCPCS: 99212 ==

== ENCOUNTER 2025-03-19 22:37 | Emergency (ER) | payer OTHER, SELFPAY ==
--- NOTE | 2025-03-19 | ECG_ITS ---
Test Reason : ARRYTHYMIA/PALPITATIONS Blood Pressure : */* mmHG Vent. Rate : 136 BPM Atrial Rate : * BPM P-R Int : * ms QRS Dur : 84 ms QT Int : 294 ms P-R-T Axes : * -18 52 degrees QTcB Int : 442 ms Atrial fibrillation with rapid ventricular response Abnormal ECG When compared with ECG of 08-Dec-2023 02:29, Atrial fibrillation has replaced Sinus rhythm Vent. rate has increased by 73 bpm Referred By: Generic ED Physician Electronically Signed By: Carl Villanueva
[2025-03-19 22:38] VITALS: BP 114/88; PULSE 109; RESP 20; TEMP 36.5; O2SAT 99; BMI 28.6
[2025-03-19 22:59] LABS: MANUAL DIFF FLAG NO
[2025-03-19 23:01] LABS: Basophils Absolute Auto 0.1 X10*3/uL (0.0-0.2); Basophils Percent Auto 0.7 % (0-2); Eosinophils Absolute Auto 0.4 X10*3/uL (0.0-0.4); Eosinophils Percent Auto 5.1 % (0-4); Hematocrit 39.4 % (42.0-52.0); Hemoglobin 14.5 g/dl (14.0-18.0); Imm Gran Abs Auto 0.02 X10*3/uL (0.00-0.03); Imm Gran Pct Auto 0.3 % (0.0-0.4); Lymphocytes Absolute Auto 2.2 X10*3/uL (1.2-4.9); Lymphocytes Percent Auto 31.4 % (20-40); Mean Corpuscular HGB Conc 36.8 g/dl (31.0-36.0); Mean Corpuscular Hemoglobin 30.5 pg (27.0-33.0); Mean Corpuscular Volume 82.9 fL (80.0-98.0); Mean Platelet Volume 8.6 fL (9.4-12.4); Monocytes Absolute Auto 0.8 X10*3/uL (0.1-1.2); Monocytes Percent Auto 11.6 % (2-11); Neutrophils Absolute Auto 3.6 x10*3/uL (2.0-8.3); Neutrophils Percent Auto 50.9 % (45-73); Platelet Count 232 X10*3/uL (160-400); Red Blood Count 4.75 X10*6/uL (4.60-5.80); Red Cell Distribution Width 12.4 % (11.0-16.0); White Blood Count 7.1 X10*3/uL (4.8-10.8)
--- NOTE | 2025-03-19 23:01 | ED_ITS ---
HPI - General Adult General Chief complaint: Arrhythmia/Palpitations Stated complaint: Racing Heart rate Time Seen by Provider: 03/19/25 23:01 History of Present Illness ED Provider: Miguel TIWARI narrative: The patient is a 49-year-old male with a history of paroxysmal atrial fibrillation. He had a first episode of this in 2020. At that time he was seen in the emergency room and was given 5 mg of IV metoprolol and converted in the emergency room back to a normal sinus rhythm. At that time he was discharged on oral metoprolol from the emergency room. He had a 2nd episode of atrial fibrillation in August of 2022. At that time he was treated in the emergency room with IV metoprolol and diltiazem but did not convert and was hospitalized. In the hospital he was given 300 mg of flecainide and converted after receiving oral flecainide and was discharged the following day. He was discharged to continue metoprolol succinate 25 mg daily. He followed up with Cardiology and at his follow up visit he was prescribed flecainide as a ?pill in a pocket strategy to be used as needed if he had a recurrence of symptoms. The patient has not had any episodes of symptoms of palpitations since August of 2022 until this evening at around 22:00 when he had an abrupt onset of a sense of his heart racing similar to his previous episodes of atrial fibrillation. He says that earlier in the evening he had done some weightlifting and had had a banana and then went to bed. While lying in bed he suddenly felt his heart start to race and lb. There was no associated chest discomfort other than the discomfort of the palpitations. This was very similar to his previous episodes. He said that the flecainide he has been previously prescribed head so he did not take it but came to the emergency room instead. He has otherwise been well recently. He has had no fever, sweats, chills or any other symptoms or concerns. His only other medical issues are chronic back pain for which he takes ibuprofen and occasional oxycodone. Related Data Previous Rx's ?Medication ?Instructions ?Recorded CPAP 8 cm H20 humidified air #1 ea 07/14/23 AIRFIT N20 Small NAsal MAsk ibuprofen 600 mg tablet 600 mg PO Q6H PRN pain #30 tabs 08/22/24 CANE #1 ea 08/29/24 cyclobenzaprine 10 mg tablet 10 mg PO TID PRN muscle spasm #20 01/08/25 tabs gabapentin 100 mg capsule See Rx Instructions PO .COMPLEX 30 01/18/25 days #150 caps albuterol sulfate 90 mcg/actuation 2 puff inhalation QID PRN 02/12/25 aerosol inhaler shortness of breath or wheezing #8.5 grams metoprolol succinate 25 mg 25 mg PO DAILY #90 tabs 02/26/25 tablet,extended release 24 hr (Toprol XL) oxycodone 5 mg tablet 5 mg PO .QD PRN pain 30 days #30 02/27/25 tabs Allergies Allergy/AdvReac Type Severity Reaction Status Date / Time seafood Allergy Unknown Anaphylaxis Verified 03/19/25 22:39 tramadol AdvReac Intermediate constipation Verified 03/19/25 22:39 and dysuria PMFSH Past Medical History Medical History Severe obstructive sleep apnea Exposure to blood or body fluid GERD (gastroesophageal reflux disease) Sleep apnea Anemia Afib Allergic reaction Obesity (BMI 30-39.9) Herniated lumbar intervertebral disc Lower back pain Low back strain Allergic conjunctivitis History of rib fracture Hyperglyceridemia Chronic radicular low back pain Surgical History History of umbilical hernia repair (~08/22/24) History of discectomy Family History Family History Father No problems noted. Mother No problems noted. Social History Social History Housing: Apartment Alcohol intake: former Patient Tobacco Use Status: Never used Tobacco Tobacco use type: Cigarette Smoked in Last 30 Days: No e-Cigarette/Vaping Use: Never Used Second Hand Smoke Exposure: Yes Use of substances other than those prescribed or required for medical reasons: No Advance Directives: No Advance Directives Information Provided: Yes service: No Current occupational status: employed Current occupational exposures/hazards: No Cognitive needs: No Hearing needs: No Vision needs: No Physical Exam ED Vital Signs: Vital Signs - 24 hr 03/19/25 22:38 03/19/25 23:06 03/19/25 23:12 Temperature 97.7 F Pulse Rate 109 H 136 H 138 H Respiratory Rate 20 11 L Blood Pressure 114/88 115/87 110/77 Pulse Oximetry 99 97 Oxygen Delivery Method Room Air Room Air 03/20/25 00:09 03/20/25 02:00 03/20/25 02:04 Temperature Pulse Rate 141 H 148 H 64 Respiratory Rate 17 14 Blood Pressure 92/65 101/62 104/53 L Pulse Oximetry 97 98 Oxygen Delivery Method Room Air Room Air 03/20/25 03:44 03/20/25 04:15 Temperature 97.8 F 97.8 F Pulse Rate 96 96 Respiratory Rate 13 13 Blood Pressure 93/47 L 93/47 L Pulse Oximetry 98 98 Oxygen Delivery Method Room Air Room Air BMI result Body Mass Index 28.6 Medications Administered Discontinued Medications Generic Name Dose Route Start Last Admin Trade Name Freq PRN Reason Stop Dose Admin Diltiazem HCl 20 mg 03/20/25 01:50 03/20/25 02:00 Diltiazem Hcl 50 Mg/10 Ml Vial IVPUSH 03/20/25 01:51 20 mg STAT STA Administration Flecainide Acetate 300 mg 03/19/25 23:30 03/20/25 00:08 Flecainide Acetate 50 Mg Tablet PO 03/19/25 23:31 300 mg ONCE ONE Administration Sodium Chloride 1,000 mls @ 999 mls/hr 03/20/25 01:15 03/20/25 02:16 Ns IV 03/20/25 02:15 Infused .Q1H1M ANY Infusion Calcium Gluconate 2 gm in 100 mls @ 400 mls/hr 03/20/25 01:31 03/20/25 01:58 Calcium Gluconate IV 03/20/25 01:45 Infused ONCE ONE Infusion Sodium Chloride 1,000 mls @ 999 mls/hr 03/20/25 02:00 03/20/25 02:59 Ns IV 03/20/25 03:00 Infused .Q1H1M ANY Infusion Metoprolol Tartrate 5 mg 03/19/25 23:07 03/19/25 23:13 Metoprolol Tartrate 5 Mg/5 Ml Vial IVPUSH 03/19/25 23:08 5 mg ONCE ONE Administration Protocol Metoprolol Tartrate 25 mg 03/19/25 23:07 03/19/25 23:12 Metoprolol Tartrate 25 Mg Tablet PO 03/19/25 23:08 25 mg ONCE ONE Administration Protocol Medical Decision Making Medical Decision Making [facility] Narrative: The patient is a 49-year-old male with a history of paroxysmal atrial fibrillation. He seems to have had 2 episodes of atrial fibrillation before in his life. At the 1st episode he converted in the emergency room here after a single dose of 5 mg of IV metoprolol. This was in November of 2020. His 2nd episode occurred in August of 2022. At that time he was admitted to the hospital after receiving IV diltiazem and metoprolol in the emergency room. He was subsequently given oral flecainide for cardioversion and converted to normal sinus rhythm after receiving the oral flecainide. At that time he was discharged on metoprolol succinate 25 mg daily. He was not placed on anticoagulation because his CHADS-VASc score was 0. At a follow up visit with Cardiology he was prescribed ?pill in a pocket? flecainide to be used on a p.r.n. basis. He presents tonight with acute onset of palpitations that started distinctly a 22:00 this evening. He says this is the 1st time since 2021 that he has had any symptoms of atrial fibrillation. He says he has been taking his metoprolol regularly. However he says he takes a lot of caffeine every morning when he gets his coffee drink from [email or web address]. He presents today in atrial fibrillation with a rapid ventricular response. He a symptoms of palpitations related to his heart rate but does not have any other concerning symptoms. The patient was initially given 5 mg of IV metoprolol and 25 mg of oral metoprolol tartrate. This did not seem to have much of an effect on his beta or his rhythm. Since it was clear that he has been encouraged to use flecainide on an as-needed basis in the past (he does not take flecainide at home because the flecainide he had had ) I felt that it would be reasonable to give him a dose of flecainide here. His CHADS-VASc score is 0. He presents within just a few hours of the onset of his symptoms. 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 After receiving the oral flecainide he continued to be quite tachycardic and he found the palpitations uncomfortable. His blood pressures were borderline so he was given IV fluids and 2 g of IV calcium gluconate and then 20 mg of IV diltiazem. After receiving the IV at the high exam his heart rate slowed down and he then converted to a sinus rhythm. A repeat EKG showed sinus bradycardia at 59 beats per minute. The patient was observed for a total of 4 hours after administration of the flecainide. At this point I think he is safe for discharge. Lab Data 03/19/25 22:54 03/19/25 22:54 Labs: Lab Results 03/19/25 Range/Units 22:54 WBC 7.1 (4.8-10.8) X10*3/uL RBC 4.75 (4.60-5.80) X10*6/uL Hgb 14.5 (14.0-18.0) g/dl Hct 39.4 L (42.0-52.0) % MCV 82.9 (80.0-98.0) fL MCH 30.5 (27.0-33.0) pg MCHC 36.8 H (31.0-36.0) g/dl RDW 12.4 (11.0-16.0) % Plt Count 232 (160-400) X10*3/uL MPV 8.6 L (9.4-12.4) fL Immature Gran % (Auto) 0.3 (0.0-0.4) % Neut % (Auto) 50.9 (45-73) % Lymph % (Auto) 31.4 (20-40) % [place] % (Auto) 11.6 H (2-11) % Eos % (Auto) 5.1 H (0-4) % Baso % (Auto) 0.7 (0-2) % Lymph # (Auto) 2.2 (1.2-4.9) X10*3/uL [place] # (Auto) 0.8 (0.1-1.2) X10*3/uL Eos # (Auto) 0.4 (0.0-0.4) X10*3/uL Baso # (Auto) 0.1 (0.0-0.2) X10*3/uL Abs Immat Gran (auto) 0.02 (0.00-0.03) X10*3/uL Absolute Neuts (auto) 3.6 (2.0-8.3) x10*3/uL Absolute Nucleated RBC 0.000 (0.0-0.012) X10*3/uL Nucleated RBC % (auto) 0.0 (0.0-0.2) /100WBC Sodium 139 (135-145) mmol/L Potassium 3.8 (3.3-5.1) mmol/L Chloride 107 (96-108) mmol/L Carbon Dioxide 24 (22-29) mmol/L Anion Gap 12 (12-20) BUN 13 (9-16) mg/dL Creatinine 0.76 (0.5-1.4) mg/dL Estim Creat Clear Calc 131.9 Estimated GFR > 60 Random Glucose 104 (60-115) mg/dL Calcium 8.7 (8.4-10.2) mg/dL Magnesium 2.0 (1.6-2.6) mg/dL Total Bilirubin 0.7 (0.0-1.0) mg/dL AST 28 (5-37) U/L ALT 27 (0-40) U/L Alkaline Phosphatase 90 (39-117) U/L Troponin I High Sens < 2.7 (<3.5-35.0) ng/L Total Protein 6.6 (6.5-8.0) g/dL Albumin 4.1 (3.5-5.0) g/dL Critical Care Time Critical Care Time Critical Care Time: Yes Total Critical Care Time: 35 Attestation: The patient was critically ill with a high probability of imminent or life- threatening deterioration. ?I spent greater than 30 minutes of discontinuous time evaluating the patient, delivering critical care at the bedside, discussing evaluating data with consultants. ?Critical care time does not include time spent performing separately billable procedures or teaching. ?Time spent performing critical care with 35 minutes. Discharge Plan Discharge Clinical Impression: Paroxysmal atrial fibrillation with rapid ventricular response Patient Disposition: Home, Self-Care Additional Instructions: Please continue your daily metoprolol. Please try to reduce your caffeine intake. Please contact the cardiology office in the morning to make a follow up appointment to discuss this episode further. Return to the emergency room if significantly worse. Prescriptions: No Action (DME) CPAP 8 cm H20 humidified air AIRFIT N20 Small NAsal MAsk See Rx Instructions .Route .MEDSULY Qty: 1 0RF Rx Instructions: As directed heated humidifier and all supplies albuterol sulfate 90 mcg/actuation HFA aerosol inhaler 2 puff inhalation QID PRN (Reason: shortness of breath or wheezing) Qty: 8.5 0RF metoprolol succinate [Toprol XL] 25 mg tablet extended release 24 hr 25 mg PO DAILY Qty: 90 3RF oxycodone 5 mg tablet 5 mg PO .QD PRN (Reason: pain) 30 Days Qty: 30 0RF Rx Instructions: Partial Fill upon patient request. ibuprofen 600 mg tablet 600 mg PO Q6H PRN (Reason: pain) Qty: 30 0RF (DME) CANE See Rx Instructions .Route .MEDSUPPLY Qty: 1 0RF Rx Instructions: As directed cyclobenzaprine 10 mg tablet 10 mg PO TID PRN (Reason: muscle spasm) Qty: 20 0RF gabapentin 100 mg capsule See Rx Instructions PO .COMPLEX 30 Days Qty: 150 6RF Rx Instructions: 200mg q evening and 300mg qhs orally .; Referrals: [facility] [Provider Group] (Episode of paroxysmal atrial fibrillation with RVR) Interventions: ED Discharge Assessment Last Done: 03/20/25 04:15 Discharge Date/Time: 03/20/25 04:17 Print Language: Barbadian
[2025-03-19 23:06] VITALS: BP 115/87; PULSE 136; RESP 11; O2SAT 97
[2025-03-19 23:12] VITALS: BP 110/77; PULSE 138
[2025-03-19] MEDS: Metoprolol Tartrate 25 MG TABLET PO (23:12)
[2025-03-19] MEDS: Metoprolol Tartrate 5 MG/5 ML VIAL IVPUSH (23:13)
[2025-03-19 23:16] LABS: Alanine Aminotransferase 27 U/L (0-40); Albumin Level 4.1 g/dL (3.5-5.0); Alkaline Phosphatase 90 U/L (39-117); Anion Gap 12 (12-20); Aspartate Amino Transferase 28 U/L (5-37); Bilirubin Total 0.7 mg/dL (0.0-1.0); Blood Urea Nitrogen 13 mg/dL (9-16); Calcium 8.7 mg/dL (8.4-10.2); Carbon Dioxide 24 mmol/L (22-29); Chloride 107 mmol/L (96-108); Creatinine Clr Calc Pharmacy 131.9; Estimated Glomerular Filt Rate > 60; Glucose Random 104 mg/dL (60-115); Potassium 3.8 mmol/L (3.3-5.1); Sodium 139 mmol/L (135-145); Total Protein 6.6 g/dL (6.5-8.0)
[2025-03-19 23:23] LABS: Troponin-I High Sensitivity < 2.7 ng/L (<3.5-35.0)
[2025-03-20] MEDS: Flecainide Acetate 50 MG TABLET 300 MG PO (00:08)
[2025-03-20 00:09] VITALS: BP 92/65; PULSE 141; RESP 17; O2SAT 97
[2025-03-20] MEDS: 0.9 % Sodium Chloride 1,000 ML 999 ML IV ×2 (01:13→02:01)
[2025-03-20] MEDS: Calcium Gluconate/NaCl,Iso-Osm 2 GM/100 ML PLAST..BAG IV (01:36)
--- NOTE | 2025-03-20 01:37 | PC.NURSE ---
Addendum entered by Lavern Valerio RN 03/20/25 02:16: administered 20 mg of diltiazem with good results. pts heart rate now 60s-70s and bp noted to be 104/53. pt stated he feels much better and less anxious. pending new ekg Original Note: pts hr noted to be 150s-160s pt stating she's not feeling well and complaining of feeling of palpitations in chest. aware, pending new orders
[2025-03-20 02:00] VITALS: BP 101/62; PULSE 148
[2025-03-20] MEDS: dilTIAZem HCL 50 MG/10 ML VIAL 20 MG IVPUSH (02:00)
[2025-03-20 02:04] VITALS: BP 104/53; PULSE 64; RESP 14; O2SAT 98
--- NOTE | 2025-03-20 02:12 | ECG_ITS ---
Test Reason : A FIB Blood Pressure : */* mmHG Vent. Rate : 59 BPM Atrial Rate : 59 BPM P-R Int : 208 ms QRS Dur : 104 ms QT Int : 400 ms P-R-T Axes : 19 -46 43 degrees QTcB Int : 396 ms Sinus bradycardia Left axis deviation Abnormal ECG When compared with ECG of 19-Mar-2025 22:44, Sinus rhythm has replaced Atrial fibrillation Vent. rate has decreased by 77 bpm Referred By: Alo Rivera Electronically Signed By: Carl Villanueva
[2025-03-20 03:44] VITALS: BP 93/47; PULSE 96; RESP 13; TEMP 36.6; O2SAT 98
[2025-03-20 04:15] VITALS: BP 93/47; PULSE 96; RESP 13; TEMP 36.6; O2SAT 98
== END 2025-03-20 04:17 | disposition home or self-care (01) ==
PROVIDERS: Emergency Provider Emergency Medicine; PCP Internal Medicine
DX: I48.20 Chronic atrial fibrillation, unspecified (principal); R00.1 Bradycardia, unspecified; R11.0 Nausea; Z79.899 Other long term (current) drug therapy
CPT/HCPCS: 36415; 80053; 83735; 84484; 85025; 93005; 96361; 96374; 96375; 99285; J0613

== ENCOUNTER → 2025-03-19 22:44 | Outpatient (BNV) | payer OTHER, SELFPAY | PROVIDERS: Emergency Provider Emergency Medicine; PCP Internal Medicine; Visit Provider Internal Medicine Cardiovascular Disease | DX: I48.91 Unspecified atrial fibrillation (principal) | CPT/HCPCS: 93010 ==

== ENCOUNTER → 2025-03-20 02:12 | Outpatient (BNV) | payer OTHER, SELFPAY | PROVIDERS: Emergency Provider Emergency Medicine; PCP Internal Medicine; Visit Provider Internal Medicine Cardiovascular Disease | DX: R00.1 Bradycardia, unspecified (principal) | CPT/HCPCS: 93010 ==

== ENCOUNTER 2025-04-12 14:43 | Outpatient (AMB) | payer OTHER, SELFPAY ==
--- NOTE | 2025-04-12 14:46 | A.OFFPC_ITS ---
Vital Signs 04/12/25 14:47 Height 5 ft 11 in Weight 198 lb 4 oz BMI 27.6 BP 110/60 Blood Pressure Location Lt brachial Position Sitting Respiration 18 Pulse 76 Pulse Source Pulse Oximeter Pulse Oximetry (%) 96 Oxygen Delivery Method Room Air Intake Visit Reasons: CLBP Ergonomic Specialist Required: Yes Senior Field Service Engineer: Present Accompanied by: Self / Same As Patient Allergies seafood Allergy (Unknown, Verified 04/12/25 14:50) Anaphylaxis tramadol Adverse Reaction (Intermediate, Verified 04/12/25 14:50) constipation and dysuria Medication List - Last Reconciled 04/12/25 by Nurys Brambila MD albuterol sulfate 90 mcg/actuation 2 puffs inhalation QID PRN [CANE As directed] [CPAP 8 cm H20 humidified air AIRFIT N20 Small NAsal MAsk As directed heated humidifier and all supplies ] metoprolol succinate ER (Toprol XL) 25 mg PO DAILY oxycodone 5 mg PO .QD PRN 30 days Tobacco use date assessed: 04/12/25 Dental Screening Dental Screen Date: 11/30/24 HPI CLBP HPI Details [id number] [place]ian. A fib- was told caffeneiated drink recently causing the problem. [facility] Medical History Severe obstructive sleep apnea Exposure to blood or body fluid GERD (gastroesophageal reflux disease) Sleep apnea Anemia Afib Allergic reaction Obesity (BMI 30-39.9) Herniated lumbar intervertebral disc Lower back pain Low back strain Allergic conjunctivitis History of rib fracture Hyperglyceridemia Chronic radicular low back pain Surgical History History of umbilical hernia repair (~08/22/24) History of discectomy Family History Father No problems noted. Mother No problems noted. Social History Housing: Apartment Alcohol intake: former Patient Tobacco Use Status: Never used Tobacco Tobacco use type: Cigarette e-Cigarette/Vaping Use: Never Used Second Hand Smoke Exposure: Yes service: No Current occupational status: employed Current occupational exposures/hazards: No Cognitive needs: No Hearing needs: No Vision needs: No Questionnaire PHQ-9 Over the last 2 weeks, how often have you been bothered by any of the following problems? 1. Little interest or pleasure in doing things: more than half the days 2. Feeling down, depressed, or hopeless: more than half the days 3. Trouble falling or staying asleep, or sleeping too much: more than half the days 4. Feeling tired or having little energy: more than half the days 5. Poor appetite or overeating: not at all 6. Feeling bad about yourself - or that you are a failure or have let yourself or your family down: more than half the days 7. Trouble concentrating on things, such as reading the newspaper or watching television: several days 8. Moving or speaking so slowly that other people could have noticed. Or the opposite - being so fidgety or restless that you have been moving around a lot more than usual: several days 9. Thoughts that you would be better off or of hurting yourself in some way: not at all Total score: 12 Depression Screening Interpretation: Positive Depression Screening Done: Yes Source: Developed by Drs. Raman Mejia, Zahra Norman, Sandeep Ham and colleagues, with an educational tosha from [employer]. Thrive Questionnaire Date Thrive assessed: 11/30/24 I am a: Patient What is your living situation today?: I have a steady place to live Within the past 12 months, did the food you bought not last and you didn't have the money to get more?: Never true Within the past 12 months, did you worry whether your food would run out before you got money to buy more?: Never true Do you have trouble paying for medicines?: No Do you have trouble getting transportation to medical appointments?: No Do you have trouble paying your heating and electricity bill?: No Do you have trouble taking care of your child, family member or friend?: No Do you have trouble with day-to-day activities such as bathing, preparing meals, shopping, managing finances, etc.?: No Are you currently unemployed and looking for a job?: No Are you interested in more education?: No Please select the resources that you would like help with: None Currently or been in a relationship where the following occur: No concerns reported THRIVE Score: 0 AUDIT C Alcohol Use Questionnaire (AUDIT-C) 1. How often do you have a drink containing alcohol?: Never Total Score: 0 NEVA-7 AMB Questionnaire NEVA-7 Date NEVA - 7 assessed: 04/12/25 Feeling nervous, anxious, or on edge: 0 = Not at all Not being able to stop or control worryin = Not at all Worrying too much about different things: 0 = Not at all Trouble relaxin = Not at all Being so restless that it is hard to sit still: 0 = Not at all Becoming easily annoyed or irritable: 1 = Several days Feeling afraid as if something awful might happen: 0 = Not at all Total NEVA-7 score (0-4 normal; 5-9 mild; 10-14 moderate; 15-21 severe): 1 Source: Developed by Drs. Raman Mejia, Zahra Norman, Sandeep Ham and colleagues, with an educational tosha from [employer]. Physical exam (Primary Care) Vital Signs: Last Vital Signs Pulse 76 04/12/25 14:47 Resp 18 04/12/25 14:47 BP 110/60 04/12/25 14:47 Pulse Ox 96 04/12/25 14:47 Oxygen Delivery Method Room Air 04/12/25 14:47 BMI result Body Mass Index 27.6 Tobacco/Smoking Status: Tobacco use Status Tobacco use date assessed 04/12/25 04/12/25 14:51 Patient Tobacco Use Status Never used Tobacco 04/12/25 14:50 Tobacco use type Cigarette 04/12/25 14:50 e-Cigarette/Vaping Use Never Used 04/12/25 14:50 PHQ-9: PHQ-9 Score PHQ-9: Total score 12 04/12/25 14:51 Depression Screening Interpretation: Positive Thrive Assessment: Date of Thrive Assessment Date Thrive assessed 11/30/24 04/12/25 14:50 Currently or been in a relationship where the following occur: No concerns reported Const General: alert; No acute distress Eyes Conjunctivae: conjunctivae normal Resp Auscultation: clear to auscultation bilaterally Cardio Rate: regular rate Rhythm: regular rhythm GI Inspection: Yes normal to inspection Extrem General: Yes normal to inspection and No edema Coding Level of Care Code Est Pt Level 4 (39960) Complex EM visit Add On G2211 Diagnoses Bilateral leg paresthesia R20.2 Mild obstructive sleep apnea G47.33 GERD (gastroesophageal reflux disease) K21.9 Paroxysmal atrial fibrillation I48.0 Chronic radicular low back pain M54.16; G89.29 Assessment & Plan Assessment & Plan (1) Bilateral leg paresthesia: Code(s): R20.2 - Paresthesia of skin Category: Medical Plan: Patient is being monitored by Neurology for an in-lab sleep study (2) Mild obstructive sleep apnea: Comment: August 2024 Code(s): G47.33 - Obstructive sleep apnea (adult) (pediatric) Category: Medical Plan: Patient is being monitored by Neurology for an in-lab sleep study (3) GERD (gastroesophageal reflux disease): Code(s): K21.9 - Gastro-esophageal reflux disease without esophagitis Category: Medical Plan: Avoid the foods that causes that usually spicy foods, tomato products, juices, coffee, soda and foods that your sensitive to. After eating do not lie down, allow 3-4 hours before in lie down. And keep the head of bed above 30 degrees to avoid the acid from going up. (4) Paroxysmal atrial fibrillation: Comment: In sinus rhythm at this point. Asymptomatic. Low chads Vasc score. Code(s): I48.0 - Paroxysmal atrial fibrillation Category: Medical Plan: Patient will be referred to Cardiology. Patient was given pill in the pocket strategy but has had the medication . (5) Chronic radicular low back pain: Comment: Herniated disc January 2007 Dr. Leroy; L4-5 diskectomy December 2007, MRI December 2020 progression Code(s): M54.16 - Radiculopathy, lumbar region; G89.29 - Other chronic pain Category: Medical Plan: Narcotic pain meds: Is being prescribed with the understanding that these medications are potentially addictive and should be used only when absolutely necessary and must always be secured. Any remaining pills should be safely disposed off appropriately. Patient is advised that narcotics can impaired judgment and one should not drive or operate heavy machinery while taking these medications. Never share these medications with anybody and do not leave them unattended. They will not be replaced under any circumstances. Orders: Referrals Cardiology Referral I48.0 - Paroxysmal atrial fibrillation Medications: Changed From oxycodone Partial Fill upon patient request. 5 mg PO .QD 30 days PRN 30 tabs 0RF pain G89.29 - Other chronic pain, M54.16 - Radiculopathy, lumbar region To oxycodone Partial Fill upon patient request. 5 mg PO BID 30 days PRN 45 tabs 0RF pain G89.29 - Other chronic pain, M54.16 - Radiculopathy, lumbar region
[2025-04-12 14:47] VITALS: BP 110/60; PULSE 76; RESP 18; O2SAT 96; BMI 27.6
--- OUTSIDE RECORDS SUMMARY | 2025-04-12 17:18 | XMS_ITS | Clinical Summary ---
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 02/10/2024 Active acetaminophen (Tylenol 8 Hour) 650 MG ER tablet Take 1 tablet (650 mg) by mouth every 8 (eight) hours if needed for mild pain. Do not crush, chew, or split. 30 tablet 01/23/2025 Active ibuprofen 600 MG tabletIndicatio ns:Open fracture of tooth, sequela Take 1 tablet (600 mg) by mouth 3 times daily. 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 [address] Glass-Simon, Bethany, DDS Teeth missing (Primary Dx) 02/08/2025 3:00 PM EDT Office Visit [facility] [address] [place] [address] Glass-Simon, Bethany, DDS Teeth missing (Primary Dx) 01/30/2025 9:30 AM EDT Office Visit [facility] [address] [place] [address] Glass-Simon, Bethany, DDS Teeth missing (Primary Dx) 01/23/2025 2:30 PM EDT Office Visit [facility] [address] [place] [address] Joel Maki, DDS Open fracture of tooth, sequela (Primary Dx); Ankylosis of tooth from Last 3 Months Social History Tobacco [...] Sign Reading Time Taken Comments Blood Pressure 120/70 03/13/2025 10:23 AM EDT Pulse 78 07/05/2024 9:11 AM EDT Temperature - - Respiratory Rate - - Oxygen Saturation - - Inhaled Oxygen Concentration - - Weight - - Height - - Body Mass Index - - Plan of Treatment Upcoming Encounters Date Type Department Care Team (Late st Contact Info) Description 04/24/2025 8:00 AM EDT Office Visit [facility] [address] [place] [address] Bethany Boyce, DDS [address] [place] [address] 05/02/2025 8:00 AM EDT Office Visit [facility] [address] [place] [address] [address] [place] [address] Health Maintenance Due Date Last Done Comments CT Colonography 1977 Colonoscopy 1977 Colorectal Cancer Screening 1977 Dental X-Ray: Full Mouth 1977 Depression Screening 1977 FIT DNA/Cologuard 1977 FIT 1977 FOBT 1977 HIV Screening 1977 Lipid Panel 1977 SDOH Screening 1977 Sigmoidoscopy 1977 Disability Screening 1977 Alcohol/Substance Use Screening 1989 Family Planning (PISQ) 1992 Hepatitis C Screening 1995 COVID-19 Vaccine (3 - 2023-2 5 season) 2024 04/19/2022, 03/29/2022 Dental Oral Exam 10/18/2024 04/17/2024 Dental Prophylaxis 02/15/2025 08/16/2024 Influenza Vaccine (Season Ended) 2025 08/30/2020, 07/07/2019 Dental X-Ray: Bitewings 07/15/2025 07/14/2024 Tobacco Screening 03/13/2026 03/13/2025 Zoster Vaccines (1 of 2) 2027 DTaP/Tdap/Td [...] patient's age to complete this topic Meningococcal B Vaccine Aged Out No l onger eligible based on patient's age to complete [...] Procedure Name Priority Date/Time Associated Diagnosis Comments DENTURE ADJUSTMENT Routine 03/13/2025 10 :20 AM EDT Ill-fitting dentures DENTURE ADJUSTMENT Routine 02/20/2025 11 :30 AM EDT Ill-fitting dentures CASE PRESENTATION, DETAILED AND EXTENSIVE TREATMENT PLANNING Routine 02/16/2025 2:00 PM EDT Teeth missing 10,15 MAXILLARY PARTIAL DENTURE - RESIN BASE (INCLUDING, RETENTIVE/CLASPING MATERIALS, RESTS, AND TEETH) Routine 02/16/2025 2:00 PM EDT Teeth missing DENTURE IMPRESSION Routine 02/08/2025 3: 00 PM EDT Teeth missing NO CHARGE PROCEDURE Routine 01/30/2025 9 :30 AM EDT 10 INTRAORAL - PERIAPICAL EACH ADDITIONAL RADIOGRAPHIC IMAGE Routine 01/23/2025 2:30 PM EDT INTRAORAL - PERIAPICAL FIRST RADIOGRAPHIC IMAGE Routine 01/23/2025 2:30 PM EDT 10 EXTRACTION, ERUPTED TOOTH REQ REMOVAL OF BONE AND/OR SECTIONING OF TOOTH Routine 01/23/2025 2:30 PM EDT CASE PRESENTATION, DETAILED AND EXTENSIVE TREATMENT PLANNING Routine 01/23/2025 2:30 PM EDT PROPHYLAXIS - ADULT Routine 08/16/2024 3 :00 PM EDT Dental plaque Dental calculus BITEWING - SINGLE RADIOGRAPHIC IMAGE Routine 07/14/2024 8:00 AM EDT Full coverage crown needed for root canal-treated tooth PERIODIC ORAL EVALUATION - ESTABLISHED PATIENT Routine 04/17/2024 9:30 AM EDT Dental caries Encounter for dental examination Bruxism from Last 3 Months or Most Recently Relevant to Health Maintenance [facility] ST[facility]
== END 2025-04-12 15:42 | disposition home or self-care (01) ==
LOC: HO.HMCH 14:44
PROVIDERS: PCP Internal Medicine; Visit Provider Internal Medicine
DX: R20.2 Paresthesia of skin (principal); G47.33 Obstructive sleep apnea (adult) (pediatric); K21.9 Gastro-esophageal reflux disease without esophagitis; I48.0 Paroxysmal atrial fibrillation; M54.16 Radiculopathy, lumbar region; G89.29 Other chronic pain

== ENCOUNTER → 2025-04-12 14:43 | Outpatient (BNVA) | payer OTHER, SELFPAY | PROVIDERS: PCP Internal Medicine; Visit Provider Internal Medicine | DX: G47.33 Obstructive sleep apnea (adult) (pediatric) (principal); R20.2 Paresthesia of skin; K21.9 Gastro-esophageal reflux disease without esophagitis; I48.0 Paroxysmal atrial fibrillation; M54.16 Radiculopathy, lumbar region; G89.29 Other chronic pain | CPT/HCPCS: 99212 ==

== ENCOUNTER 2025-06-01 11:20 | Outpatient (AMB) | payer OTHER, SELFPAY ==
[2025-06-01 11:24] VITALS: BP 116/77; PULSE 72; BMI 29.8
--- NOTE | 2025-06-01 11:24 | MHC.OFFVIS ---
Vital Signs 06/01/25 11:24 Height 5 ft 10 in Weight 207 lb 10.807 oz BMI 29.8 BP 116/77 Blood Pressure Location Rt brachial Position Sitting Pulse 72 Intake Visit Reasons: Colonoscopy Screening Intake Note: New patient in office today for colonoscopy screening. CC: Patient denies having any GI symptoms or concerns. 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 He is referred by Nurys Brambila. PMX INEZ Asthma Atrial fibrillation - no anticoag Lumbar degenerative disc disease Chronic low back pain * SURGICAL HISTORY Umbilical hernia repair Lumbar diskectomy * ALLERGIES Tramadol Seafood * Orlebar Brown LABS: Laboratory Tests 03/19/25 22:54 WBC 7.1 Hgb 14.5 Hct 39.4 L MCV 82.9 MCH 30.5 Plt Count 232 Estimated GFR > 60 Total Bilirubin 0.7 AST 28 ALT 27 Alkaline Phosphatase 90 TODAY'S VISIT Cymraes # female family member translates per patient request This is his first colonoscopy. He denies any bowel or upper GI problems. He has INEZ and asthma that are controlled and is NOT on any anticoagulatoin for his AFIB. No anes or sed problems. There is no known FHX of crc or polyps. Because of fluctuating BM eyes patient's height was measured in the office and he was 5 ft 10 in [facility] Medical History Severe obstructive sleep apnea Exposure to blood or body fluid GERD (gastroesophageal reflux disease) Sleep apnea Anemia Afib Allergic reaction Obesity (BMI 30-39.9) Herniated lumbar intervertebral disc Lower back pain Low back strain Allergic conjunctivitis History of rib fracture Hyperglyceridemia Chronic radicular low back pain Surgical History History of umbilical hernia repair (~08/22/24) History of discectomy Family History Father No problems noted. Mother No problems noted. Social History Housing: Apartment Alcohol intake: former Patient Tobacco Use Status: Never used Tobacco Tobacco use type: Cigarette e-Cigarette/Vaping Use: Never Used Second Hand Smoke Exposure: Yes service: No Current occupational status: employed Current occupational exposures/hazards: No Cognitive needs: No Hearing needs: No Vision needs: No Review of Systems Const Denies fatigue, Denies fever(s), Denies night sweats, Denies poor appetite and Denies weight loss Eyes Reports requires corrective lenses ENT Reports Normal hearing present, Denies dental pain, Denies dysphagia, Denies hearing loss, Denies mouth pain, Denies odynophagia, Denies throat swelling, Denies tongue swelling and Reports other (Dentition adequate) GI Details: Denies abdominal pain, Denies melena, Denies bloating, Denies hematochezia, Denies constipation, Denies GI cramping, Denies dysphagia, Denies excessive flatus, Denies early satiety, Denies heartburn, Denies diarrhea, Denies nausea, Denies odynophagia, Denies vomiting and Denies hematemesis Skin/Breast Denies pruritus, Denies lesions, Denies rash and Denies jaundice Neuro Reports Normal hearing present and Denies Abnormal speech present Endo Denies fatigue Aller/Immun Denies throat swelling and Denies tongue swelling Physical Exam Const General: cooperative, no acute distress, well developed and well groomed Nutritional Appearance: well nourished and obese centrally obese Orientation/consciousness: oriented to person, oriented to place and oriented to time Limitations: language barrier HEENT Head: Yes normocephalic and Yes atraumatic Eyes General: appearance normal, both eyes and all related structures Pupils: Equal, round and reactive pupils present Neck Neck: Yes normal visual inspection and Yes no lymphadenopathy Thyroid: Thyroid normal Resp Effort & Inspection: normal respiratory effort and able to speak in complete sentences Auscultation: clear to auscultation bilaterally Cardio Rate: regular rate Rhythm: regular rhythm Heart sounds: Normal, physiologic split S2 sound present Peripheral pulses: radial pulses present and posterior tibial pulses present GI Inspection: No distended, No Abdominal panniculus present and Yes obesity Palpation (GI): Soft to palpation, nontender, no guarding, not rigid and No hepatosplenomegaly present Percussion: Yes normal to percussion Auscultation: normal bowel sounds Rectal Exam - Male: Yes deferred Skin General skin exam: no rashes or lesions noted, turgor normal, skin not dry, no jaundice, No spider nevi and no striae Rashes: no rashes Nails: normal Neuro General: oriented to person, oriented to place and oriented to time Cranial nerves: Yes Equal, round and reactive pupils present and Yes Normal hearing present Speech: No Abnormal speech present Extrem General: Yes normal to inspection, No clubbing, No cyanosis and No edema Psych Appearance: grossly normal and well kempt Mental Status: mental status grossly normal Speech and movement: Normal speech and movement present Affect: normal affect Attitude: cooperative Thought process: Normal thought process present and not confabulating Thought content: Normal thought content present Insight: Fair insight present (Psych) Judgement: Fair judgement present (Psych) Assessment & Plan Assessment & Plan (1) Pre-op examination: Code(s): Z01.818 - Encounter for other preprocedural examination Category: Medical (2) Mild obstructive sleep apnea: Comment: August 2024 Code(s): G47.33 - Obstructive sleep apnea (adult) (pediatric) Category: Medical (3) Paroxysmal atrial fibrillation: Comment: In sinus rhythm at this point. Asymptomatic. Low chads Vasc score. Code(s): I48.0 - Paroxysmal atrial fibrillation Category: Medical Plan Cymraes # female family member translates per patient request This is his first colonoscopy. He denies any bowel or upper GI problems. He has INEZ and asthma that are controlled and is NOT on any anticoagulatoin for his AFIB. No anes or sed problems. There is no known FHX of crc or polyps. Because of fluctuating BM eyes patient's height was measured in the office and he was 5 ft 10 in Orders: Orders Colonoscopy - GI Use Only Today Z01.818 - Encounter for other preprocedural examination Medications: New sodium,potassium,mag sulfates 17.5-3.13-1.6 gram (Suprep Bowel Prep Kit) 480 mL orally; FOR COLONOSCOPY PREP 354 mL 0RF Coding Level of Care Code New Pt Level 3 (34505) Diagnoses Pre-op examination Z01.818 Mild obstructive sleep apnea G47.33 Paroxysmal atrial fibrillation I48.0
--- OUTSIDE RECORDS SUMMARY | 2025-06-01 11:25 | XMS_ITS | Encounter Summary ---
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
--- OUTSIDE RECORDS SUMMARY | 2025-06-01 11:25 | XMS_ITS | Clinical Summary ---
Author Organization [facility] Address [address] [place] [address] Phone Care Team Providers Care Neon Glass Bender Name Role Phone Nurys Brambila MD Primary Care Provider [phone] Allergies Active Allergy Reactions Criticality Noted Date Comments Penicillins 12/09/2020 Fish Derived 12/09/2020 Medications No known medications Active Problems No known active problems Social History Tobacco Use Types Packs/Day Years Used Date Smoking Tobacco: Never Assessed Education Answer Date Recorded Are you interested in more education? Not on juanjo e 02/26/2023 Are you concerned about learning? Not on file 02/26/2023 No 02/26/2023 No 02/26/2023 Digital Access Answer Date Recorded No 03/26/2023 No 03/26/2023 Reliable internet access at home? Not on file 03/26/2023 Device with a working camera? Not on file Sex and Gender Information Value Date Recorded Sex Assigned at Male 12/09/2020 5:51 PM EST Legal Sex Male 9:26 PM EDT Gender Identity Male 12/09/2020 5:51 PM EST Sexual Orientation Not on file Last Filed Vital Signs Vital Sign Reading Time Taken Comments Blood Pressure 116/70 12/09/2020 5:46 PM EST Pulse 90 12/09/2020 5:46 PM EST Temperature 35.8 C (96.4 F) 12/09/2020 5:46 PM EST Respiratory Rate 22 12/09/2020 5:46 PM EST Oxygen Saturation 100% 12/09/2020 5:46 PM EST Inhaled Oxygen Concentration - - Weight 98 kg (216 lb) 12/09/2020 5:49 PM EST Height 175.3 cm (5' 9 ) 12/09/2020 5:49 PM EST Body Mass Index 31.9 12/09/2020 5:49 PM EST Plan of Treatment Health Maintenance Due Date Last Done Comments LIPID PANEL 1977 DEPRESSION SCREENING 1989 SMOKING Hx and SMOKELESS TOBACCO SCREENING 1990 HEPATITIS C SCREENING 1995 HIV ONE-TIME SCREENING (18-6 5 YEARS) 1995 COLOGUARD 2022 COLONOSCOPY 2022 COLORECTAL CANCER SCREENING 2022 FIT TEST 2022 FOBT 2022 SIGMOIDOSCOPY 2022 VIRTUAL COLONOSCOPY 2022 COVID-19 VACCINE (2023-12 5 season) 2024 04/19/2022, 03/29/2022 Adult Td,Tdap Booster 03/05/2026 03/05/2016 HEPATITIS A VACCINES Aged Out No long er eligible based on patient's age to complete this topic HIB VACCINES Aged Out No longer eligi ble based on patient's age to complete this topic MENINGOCOCCAL VACCINES (ACWY) Aged Out No longer eligible based on patient's age to complete this topic MENINGOCOCCAL VACCINES (B) Aged Out N o longer eligible based on patient's age to complete this topic PNEUMOCOCCAL VACCINES (0-49 years) Aged Out No longer eligible b ased on patient's age to complete this topic Medical Devices Not on file Insurance [facility] C3 ACO C3 ACO C3 ACO [address] [place] [address] C3 ACO C3 ACO [address] [place] [id number] [place] [address] C3 ACO [facility] C3 ACO Care Teams Neon Glass Bender Relationship Specialty Start Date End Date Nurys Brambila MD [address] [place] [phone] PCP - General Internal Medicine 12/09/20 Additional Source Comments The information contained in this document represents components of the legal health record. It is not the complete legal health record.[facility]
== END 2025-06-01 12:12 | disposition home or self-care (01) ==
LOC: HO.HGI 11:21
PROVIDERS: PCP Internal Medicine; Visit Provider Nurse Practitioner
DX: Z01.818 Encounter for other preprocedural examination (principal); Z12.11 Encounter for screening for malignant neoplasm of colon; G47.33 Obstructive sleep apnea (adult) (pediatric); I48.0 Paroxysmal atrial fibrillation
CPT/HCPCS: 99203

== ENCOUNTER → 2025-06-01 11:20 | Outpatient (BNVA) | payer OTHER, SELFPAY | PROVIDERS: PCP Internal Medicine; Visit Provider Nurse Practitioner | DX: Z01.818 Encounter for other preprocedural examination (principal); G47.33 Obstructive sleep apnea (adult) (pediatric); I48.0 Paroxysmal atrial fibrillation | CPT/HCPCS: 99202 ==

== ENCOUNTER 2025-08-07 12:31 | Outpatient (AMB) | payer OTHER, SELFPAY ==
[2025-08-07 12:33] VITALS: BP 122/84; PULSE 74; TEMP 36.2; O2SAT 96; BMI 30.6
--- NOTE | 2025-08-07 12:33 | MHC.PC.OV ---
Vital Signs 08/07/25 12:33 Height 5 ft 10 in Weight 213 lb BMI 30.6 BP 122/84 Blood Pressure Location Lt brachial Position Sitting Pulse 74 Pulse Source Pulse Oximeter Temp 97.1 F Temp Source Temporal Artery Scan Pulse Oximetry (%) 96 Oxygen Delivery Method Room Air Intake Visit Reasons: INEZ, CLBP, Atrial fibrillation Tool Specialist Required: Yes Tool Specialist Language: Croatian Allergies seafood Allergy (Unknown, Verified 08/07/25 12:36) Anaphylaxis tramadol Adverse Reaction (Intermediate, Verified 08/07/25 12:36) constipation and dysuria Medication List - Last Reconciled 08/07/25 by Nurys Brambila MD [CANE As directed] metoprolol succinate ER (Toprol XL) 25 mg PO DAILY oxycodone 5 mg PO BID PRN 30 days sodium,potassium,mag sulfates 17.5-3.13-1.6 gram (Suprep Bowel Prep Kit) 480 mL orally; FOR COLONOSCOPY PREP Tobacco use date assessed: 08/07/25 Dental Screening Dental Screen Date: 08/07/25 Did you have a dental visit in the last 12 months?: No Did you have a dental problem in the last 6 months where you did not have access to dental care?: No Was dental information given to patient?: No [facility] Medical History Colon cancer screening Severe obstructive sleep apnea Exposure to blood or body fluid GERD (gastroesophageal reflux disease) Sleep apnea Anemia Afib Allergic reaction Obesity (BMI 30-39.9) Herniated lumbar intervertebral disc Lower back pain Low back strain Allergic conjunctivitis History of rib fracture Hyperglyceridemia Chronic radicular low back pain Surgical History History of umbilical hernia repair (~08/22/24) History of discectomy Family History Father No problems noted. Mother No problems noted. Social History Housing: Apartment Alcohol intake: former Patient Tobacco Use Status: Never used Tobacco Tobacco use type: Cigarette e-Cigarette/Vaping Use: Never Used Second Hand Smoke Exposure: Yes service: No Current occupational status: employed Current occupational exposures/hazards: No Cognitive needs: No Hearing needs: No Vision needs: No Questionnaire PHQ-9 Over the last 2 weeks, how often have you been bothered by any of the following problems? 1. Little interest or pleasure in doing things: more than half the days 2. Feeling down, depressed, or hopeless: more than half the days 3. Trouble falling or staying asleep, or sleeping too much: more than half the days 4. Feeling tired or having little energy: more than half the days 5. Poor appetite or overeating: not at all 6. Feeling bad about yourself - or that you are a failure or have let yourself or your family down: more than half the days 7. Trouble concentrating on things, such as reading the newspaper or watching television: several days 8. Moving or speaking so slowly that other people could have noticed. Or the opposite - being so fidgety or restless that you have been moving around a lot more than usual: several days 9. Thoughts that you would be better off or of hurting yourself in some way: not at all Total score: 12 Depression Screening Interpretation: Positive Depression Screening Done: Yes Source: Developed by Drs. Raman Mejia, Zahra Norman, Sandeep Ham and colleagues, with an educational tosha from [employer]. Thrive Questionnaire Date Thrive assessed: 04/12/25 I am a: Patient What is your living situation today?: I have a steady place to live Within the past 12 months, did the food you bought not last and you didn't have the money to get more?: Never true Within the past 12 months, did you worry whether your food would run out before you got money to buy more?: Never true Do you have trouble paying for medicines?: No Do you have trouble getting transportation to medical appointments?: No Do you have trouble paying your heating and electricity bill?: No Do you have trouble taking care of your child, family member or friend?: No Do you have trouble with day-to-day activities such as bathing, preparing meals, shopping, managing finances, etc.?: No Are you currently unemployed and looking for a job?: No Are you interested in more education?: No Please select the resources that you would like help with: None Currently or been in a relationship where the following occur: No concerns reported THRIVE Score: 0 AUDIT C Alcohol Use Questionnaire (AUDIT-C) 1. How often do you have a drink containing alcohol?: Never 3. How often do you have six or more drinks on one occasion?: Never Total Score: 0 NEVA-7 AMB Questionnaire NEVA-7 Date NEVA - 7 assessed: 04/12/25 Feeling nervous, anxious, or on edge: 0 = Not at all Not being able to stop or control worryin = Not at all Worrying too much about different things: 0 = Not at all Trouble relaxin = Not at all Being so restless that it is hard to sit still: 0 = Not at all Becoming easily annoyed or irritable: 1 = Several days Feeling afraid as if something awful might happen: 0 = Not at all Total NEVA-7 score (0-4 normal; 5-9 mild; 10-14 moderate; 15-21 severe): 1 Source: Developed by Drs. Raman Mejia, Zahra Norman, Sandeep Ham and colleagues, with an educational tosha from [employer]. Physical exam (Primary Care) Vital Signs: Last Vital Signs Temp 97.1 F 08/07/25 12:33 Pulse 74 08/07/25 12:33 BP 122/84 08/07/25 12:33 Pulse Ox 96 08/07/25 12:33 Oxygen Delivery Method Room Air 08/07/25 12:33 BMI result Body Mass Index 30.6 Tobacco/Smoking Status: Tobacco use Status Tobacco use date assessed 08/07/25 08/07/25 12:37 Patient Tobacco Use Status Never used Tobacco 08/07/25 12:37 Tobacco use type Cigarette 08/07/25 12:37 e-Cigarette/Vaping Use Never Used 08/07/25 12:37 PHQ-9: PHQ-9 Score PHQ-9: Total score 12 08/07/25 17:22 Depression Screening Interpretation: Positive Thrive Assessment: Date of Thrive Assessment Date Thrive assessed 04/12/25 08/07/25 12:37 Currently or been in a relationship where the following occur: No concerns reported Const General: alert; No acute distress Eyes Conjunctivae: conjunctivae normal Resp Auscultation: clear to auscultation bilaterally Cardio Rate: regular rate Rhythm: regular rhythm GI Inspection: Yes normal to inspection Extrem General: Yes normal to inspection and No edema Coding Level of Care Code Est Pt Level 4 (47468) Complex EM visit Add On G2211 Diagnoses Asthma J45.909 Chronic radicular low back pain M54.16; G89.29 GERD (gastroesophageal reflux disease) K21.9 Overweight (BMI 25.0-29.9) E66.3 Paroxysmal atrial fibrillation I48.0 Mild obstructive sleep apnea G47.33 Assessment & Plan Assessment & Plan (1) Asthma: Code(s): J45.909 - Unspecified asthma, uncomplicated Category: Medical Plan: On albuterol inhaler as needed (2) Chronic radicular low back pain: Comment: Herniated disc January 2007 Dr. Leroy; L4-5 diskectomy December 2007, MRI December 2020 progression Code(s): M54.16 - Radiculopathy, lumbar region; G89.29 - Other chronic pain Category: Medical Plan: Narcotic pain meds: Is being prescribed with the understanding that these medications are potentially addictive and should be used only when absolutely necessary and must always be secured. Any remaining pills should be safely disposed off appropriately. Patient is advised that narcotics can impaired judgment and one should not drive or operate heavy machinery while taking these medications. Never share these medications with anybody and do not leave them unattended. They will not be replaced under any circumstances. (3) GERD (gastroesophageal reflux disease): Code(s): K21.9 - Gastro-esophageal reflux disease without esophagitis Category: Medical Plan: Avoid the foods that causes that usually spicy foods, tomato products, juices, coffee, soda and foods that your sensitive to. After eating do not lie down, allow 3-4 hours before in lie down. And keep the head of bed above 30 degrees to avoid the acid from going up. (4) Overweight (BMI 25.0-29.9): Code(s): E66.3 - Overweight Category: Medical Plan: Continue with diet and exercise (5) Paroxysmal atrial fibrillation: Comment: In sinus rhythm at this point. Asymptomatic. Low chads Vasc score. Code(s): I48.0 - Paroxysmal atrial fibrillation Category: Medical Plan: Patient on metoprolol 25 mg once a day (6) Mild obstructive sleep apnea: Comment: August 2024 Code(s): G47.33 - Obstructive sleep apnea (adult) (pediatric) Category: Medical Plan: no use of CPAP Plan History of Present Illness The patient is a 50-year-old male presenting for a follow-up visit. He has a history of chronic radicular low back pain, which has been persistent and is managed with narcotic medication. The pain is exacerbated by cold and rainy weather, and he experiences it daily. He engages in regular walking exercises, covering one to two miles daily, to help manage his condition. The patient also has paroxysmal atrial fibrillation, for which he is on metoprolol 25 mg once daily. His last blood work in March showed normal blood count, platelet count, electrolytes, and liver function, with a blood sugar level of 104 mg/dL. He has a history of asthma, managed with an albuterol inhaler as needed, although he reports not using it recently. The patient has gastroesophageal reflux disease (GERD) and is following a reflux management plan. He is overweight but has recently lost 5 pounds and is advised to continue with diet and exercise. Preventative care measures include scheduling for colon cancer screening, which has not yet been completed. Health Maintenance - Colon cancer screening: Scheduled but not yet completed - Diet and exercise: Advised to continue for weight management Social History - Exercise: Engages in regular walking, covering one to two miles daily Review of Systems - Musculoskeletal: Reports chronic low back pain exacerbated by cold and rainy weather - Respiratory: Denies recent use of albuterol inhaler Physical Exam Results - Labs: Normal blood count, platelet count, electrolytes, liver function; blood sugar 104 mg/dL (March 19) Plan Patient was informed and verbally consented to the use of an ambient scribe for clinic note documentation during this visit. 1. Chronic Radicular Low Back Pain The patient continues to experience chronic radicular low back pain, managed with narcotic medication. He is advised to continue regular walking exercises to strengthen muscles and manage pain. 2. Paroxysmal Atrial Fibrillation The patient is on metoprolol 25 mg once daily for paroxysmal atrial fibrillation. Regular monitoring of heart rate and rhythm is recommended. 3. Asthma The patient has asthma, managed with an albuterol inhaler as needed, though he reports not using it recently. He should continue to monitor symptoms and use the inhaler as required. 4. Gastroesophageal Reflux Disease (Gerd) The patient is following a reflux management plan for gastroesophageal reflux disease (GERD). Dietary modifications and medication adherence are advised. 5. Overweight The patient is overweight but has recently lost 5 pounds. He is advised to continue with diet and exercise for further weight management. 6. Preventative Care: Colon Cancer Screening The patient is scheduled for colon cancer screening, which has not yet been completed. Follow-up is necessary to ensure completion of the screening. Discussion Notes During the visit, we discussed the management of chronic radicular low back pain with continued use of narcotic medication and regular walking exercises. We also reviewed the patient's paroxysmal atrial fibrillation management with metoprolol and the importance of regular monitoring. The patient was advised to continue using the albuterol inhaler as needed for asthma and to adhere to the reflux management plan for GERD. We emphasized the importance of diet and exercise for weight management and discussed the need to complete the scheduled colon cancer screening. Patient Instructions - Continue taking metoprolol 25 mg once daily for atrial fibrillation. - Use albuterol inhaler as needed for asthma symptoms. - Follow the reflux management plan for GERD. - Maintain regular walking exercises, aiming for one to two miles daily. - Continue with diet and exercise for weight management. - Schedule and complete colon cancer screening. Orders: Orders Comprehensive Met. Panel Today I48.0 - Paroxysmal atrial fibrillation Free T4 (Free Thyroxine) Today I48.0 - Paroxysmal atrial fibrillation Thyroid Stimulating Hormone Today I48.0 - Paroxysmal atrial fibrillation UA w Microscopic Today I48.0 - Paroxysmal atrial fibrillation Complete Blood Count Auto Diff Today I48.0 - Paroxysmal atrial fibrillation Lipid Panel Today E78.00 - Pure hypercholesterolemia, unspecified, I48.0 - Paroxysmal atrial fibrillation Vitamin B12 and Folate Today I48.0 - Paroxysmal atrial fibrillation Medications: Discontinued albuterol sulfate 90 mcg/actuation Discontinued Reason: Patient Completed Course 2 puffs inhalation QID PRN 8.5 grams 0RF shortness of breath or wheezing J45.909 - Unspecified asthma, uncomplicated
--- OUTSIDE RECORDS SUMMARY | 2025-08-07 15:23 | XMS_ITS | Encounter Summary ---
Author Organization [facility] Address [address] [place] [address] [address] [place] [address] Care Team Providers Care Rn Iv Therapy Name Role Phone Unavailable Primary Care Provider Unavailabl e Encounter Details Date Type Department Care Team (Latest Contact Info) Description 09/12/[address] [facility] CONVERSIONS Dental, Provider, DDS Social History Tobacco Use Types Packs/Day Years Used Date Smoking Tobacco: Never Assessed Sex and Gender Information Value Date Recorded Sex Assigned at Male 08/31/2022 10:15 AM EDT Legal Sex Male 10:15 AM EDT Gender Identity Male 08/31/2022 10:15 AM EDT Sexual Orientation Straight 08/31/2022 10 :15 AM EDT documented as of this encounter Plan of Treatment Not on file documented as of this encounter Visit Diagnoses Not on filedocumented in this encounter
--- OUTSIDE RECORDS SUMMARY | 2025-08-07 15:23 | XMS_ITS | Clinical Summary ---
Author Organization [employer] [facility] Address [address] [place] [address] [address] [place] [address] Care Team Providers Care Medical Scientific Officer Name Role Phone Unavailable Primary Care Provider Unavailabl e Allergies Active Allergy Reactions Criticality Noted Date Comments Fish-Derived Products 12/09/2020 Penicillins 12/09/2020 Shellfish Allergy 12/18/2022 Shellfish-Derived Products Tramadol 01/30/2025 Medications metoprolol succinate XL (Toprol-XL) 25 MG 24 hr tablet Take 25 mg by mouth Once per day. 4 Active acetaminophen (Tylenol 8 Hour) 650 MG ER tablet Take 1 tablet (650 mg) by mouth every 8 (eight) hours if needed for mild pain. Do not crush, chew, or split. 30 tablet 5 Active Additional Information Patient not taking.Reported on 06/01/2025 ibuprofen 600 MG tabletIndicatio ns:Open fracture of tooth, sequela Take 1 tablet (600 mg) by mouth 3 times daily. 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 Dental root caries 07/05/2024 Open fracture of tooth 11/24/2023 Fractured dental catholic with loss of materi al 11/24/2023 Encounters Date Type Department Care Team Description 06/01/2025 1:30 PM EDT Office Visit [facility] [address] [place] [address] Steve Tate DDS 05/22/2025 9:30 AM EDT Office Visit [facility] [address] [place] [address] Steve Tate DDS 05/15/2025 9:00 AM EDT Office Visit [facility] [address] [place] [address] Steve Tate DDS from Last 3 Months Social History Tobacco [...] Sign Reading Time Taken Comments Blood Pressure 100/80 06/01/2025 1:13 PM EDT Pulse 72 06/01/2025 1:13 PM EDT Temperature - - Respiratory Rate - - Oxygen Saturation - - Inhaled Oxygen Concentration - - Weight - - Height - - Body Mass Index - - Plan of Treatment Health Maintenance Due Date Last Done Comments CT Colonography 1977 Colonoscopy 1977 Colorectal Cancer Screening 1977 Dental X-Ray: Full Mouth 1977 Depression Screening 1977 FIT DNA/Cologuard 1977 FIT 1977 FOBT 1977 HIV Screening 1977 Lipid Panel 1977 SDOH Screening 1977 Sigmoidoscopy 1977 Disability Screening 1977 Alcohol/Substance Use Screening 1989 Family Planning (PISQ) 1992 Hepatitis C Screening 1995 Dental Oral Exam 10/18/2024 04/17/2024 Dental Prophylaxis 02/15/2025 08/16/2024 COVID-19 Vaccine (2024-2 6 season) 2025 04/19/2022, 03/29/2022 Influenza Vaccine (#1) 2025 , 07/07/2019 Dental X-Ray: Bitewings 07/15/2025 07/14/2024 Tobacco Screening 06/01/2026 06/01/2025 Zoster Vaccines (1 of 2) 2027 DTaP/Tdap/Td [...] Years) and At-Risk Patients (6 to 49) Years Aged Out No longer eligible b ased on patient's age to complete this topic RSV under 20 months Aged Out No longe r eligible based on patient's age to complete this topic Rotavirus Vaccines Aged Out No longer eligible based on patient's age to complete this topic Procedures Procedure Name Priority Date/Time Associated Diagnosis Comments RE-EVAL - POST-OP OFFICE VISIT Routine 06/01/2025 1:30 PM EDT RE-EVAL - POST-OP OFFICE VISIT Routine 05/22/2025 9:30 AM EDT RE-EVAL - POST-OP OFFICE VISIT Routine 05/15/2025 9:00 AM EDT PROPHYLAXIS - ADULT Routine 08/16/2024 3 :00 PM EDT Dental plaque Dental calculus BITEWING - SINGLE RADIOGRAPHIC IMAGE Routine 07/14/2024 8:00 AM EDT Full coverage crown needed for root canal-treated tooth PERIODIC ORAL EVALUATION - ESTABLISHED PATIENT Routine 04/17/2024 9:30 AM EDT Dental caries Encounter for dental examination Bruxism from Last 3 Months or Most Recently Relevant to Health Maintenance Insurance [place]
--- OUTSIDE RECORDS SUMMARY | 2025-08-07 15:23 | XMS_ITS | Clinical Summary ---
Author Organization [facility] Address [address] [place] [phone] Phone Care Team Providers Care Christmas Bell Ringer Name Role Phone Nurys Brambila MD Primary Care Provider [phone] Allergies Active Allergy Reactions Criticality Noted Date [...] FOBT 2022 SIGMOIDOSCOPY 2022 VIRTUAL COLONOSCOPY 2022 INFLUENZA VACCINE (#1) 2025 , 07/07/2019 COVID-19 VACCINE (2024-12 6 season) 2025 04/19/2022, 03/29/2022 Adult Td,Tdap Booster 03/05/2026 03/05/2016 [...] topic Medical Devices Not on file Insurance [facility] C3 ACO C3 ACO C3 ACO C3 ACO C3 ACO [facility] [place] [place] [address] [place] [address] C3 ACO Care Teams Christmas Bell Ringer Relationship Specialty Start Date End Date Nurys Brambila MD [address] [place] [address] PCP - General Internal Medicine 12/09/20 Additional Source Comments The information contained in this document represents components of the legal health record. It is not the complete legal health record.[facility]
== END 2025-08-07 12:56 | disposition home or self-care (01) ==
LOC: HO.HMCH 12:31
PROVIDERS: PCP Internal Medicine; Visit Provider Internal Medicine
DX: J45.909 Unspecified asthma, uncomplicated (principal); I48.0 Paroxysmal atrial fibrillation; M54.16 Radiculopathy, lumbar region; E66.3 Overweight; Z68.30 Body mass index [BMI] 30.0-30.9, adult; G89.29 Other chronic pain; K21.9 Gastro-esophageal reflux disease without esophagitis; G47.33 Obstructive sleep apnea (adult) (pediatric)

== ENCOUNTER → 2025-08-07 12:31 | Outpatient (BNVA) | payer OTHER, SELFPAY | PROVIDERS: PCP Internal Medicine; Visit Provider Internal Medicine | DX: M54.16 Radiculopathy, lumbar region (principal); G89.29 Other chronic pain; J45.909 Unspecified asthma, uncomplicated; K21.9 Gastro-esophageal reflux disease without esophagitis; E66.3 Overweight; I48.0 Paroxysmal atrial fibrillation; G47.33 Obstructive sleep apnea (adult) (pediatric); Z68.30 Body mass index [BMI] 30.0-30.9, adult | CPT/HCPCS: 99212 ==

== ENCOUNTER 2025-10-08 08:31 | Outpatient (REF) | payer OTHER, SELFPAY ==
[2025-10-08 08:57] LABS: MANUAL DIFF FLAG NO
[2025-10-08 09:20] LABS: Hematocrit 43.4 % (42.0-52.0); Hemoglobin 15.5 g/dl (14.0-18.0); Imm Gran Abs Auto 0.02 X10*3/uL (0.00-0.03); Imm Gran Pct Auto 0.3 % (0.0-0.4); Lymphocytes Absolute Auto 1.6 X10*3/uL (1.2-4.9); Mean Corpuscular HGB Conc 35.7 g/dl (31.0-36.0); Mean Corpuscular Hemoglobin 30.7 pg (27.0-33.0); Mean Corpuscular Volume 85.9 fL (80.0-98.0); NRBC Abs Auto 0.000 X10*3/uL (0.0-0.012); NRBC Pct Auto 0.0 /100WBC (0.0-0.2); Platelet Count 279 X10*3/uL (160-400); Red Blood Count 5.05 X10*6/uL (4.60-5.80); White Blood Count 6.8 X10*3/uL (4.8-10.8)
[2025-10-08 09:23] LABS: Appearance Urine Clear; Glucose Urine UA Negative (Negative); PH 5.0 (5.0-9.0); Specific Gravity - Urine 1.020 (1.005-1.025)
[2025-10-08 10:03] LABS: Alanine Aminotransferase 29 U/L (0-40); Albumin Level 4.4 g/dL (3.5-5.0); Alkaline Phosphatase 71 U/L (39-117); Anion Gap 12 (12-20); Aspartate Amino Transferase 30 U/L (5-37); Blood Urea Nitrogen 12 mg/dL (9-16); Calcium 8.9 mg/dL (8.4-10.2); Carbon Dioxide 26 mmol/L (22-29); Chloride 106 mmol/L (96-108); Cholesterol 204 mg/dL (<200); Estimated Glomerular Filt Rate > 60; HDL Cholesterol 38 mg/dL (>40); Potassium 3.9 mmol/L (3.3-5.1); Sodium 140 mmol/L (135-145); Total Protein 6.7 g/dL (6.5-8.0); Triglycerides 152 mg/dL (<150)
[2025-10-08 10:24] LABS: Free T4 (Free Thyroxine) 0.99 ng/dL (0.71-1.85); Thyroid Stimulating Hormone 1.15 uIU/mL (0.32-4.0)
[2025-10-08 10:32] LABS: Folate 7.3 ng/mL (> or = 4.0); Vitamin B12 471 pg/mL (200-900)
== END 2025-10-08 08:32 | disposition home or self-care (01) ==
LOC: HO.LAB 08:31
PROVIDERS: PCP Internal Medicine; Visit Provider Internal Medicine
DX: I48.0 Paroxysmal atrial fibrillation (principal); E78.00 Pure hypercholesterolemia, unspecified
CPT/HCPCS: 36415; 80053; 80061; 81001; 82607; 82746; 84439; 84443; 85025